=== PATIENT | female | born 1950 | race American Indian/Alaskan Native ===

== ENCOUNTER → 2018-05-26 | Outpatient (CLI) | payer MEDICARE, BC | END | disposition home or self-care (01) | LOC: C.CTH 12:23 | DX: I73.9 Peripheral vascular disease, unspecified (principal) ==

== ENCOUNTER 2018-06-18 16:07 | Inpatient (IN) | payer MEDICARE, BC ==
--- NOTE | 2018-06-18 16:25 | C.PDOC ---
History Of Present Illness 67yo F with PMH of DM, ESRD on HD on MWF was sent in by Dr. Akin Shafre from office for clinical osteomyelitis. The ulcer opened and started oozing over the last week. She has been taking medication but is unsure of the name. She has noticed the inside of her leg getting warm. She is still able to bear weight and walk normally. Denies chest pain, shortness of breath, abdominal pain, numbness, tingling, dizziness, fever, chills. <Jennifer Delgadillo - Last Filed: 06/18/18 18:59> History Per: Patient Onset/Duration Of Symptoms: Days Additional History Per: Family <Jennifer Delgadillo - Last Filed: 06/18/18 18:59> <Edin Bedoya - Last Filed: 06/19/18 00:55> Time Seen by Provider: 06/18/18 16:25 Chief Complaint (Nursing): Lower Extremity Problem/Injury Past Medical History Reviewed: Historical Data, Nursing Documentation, Vital Signs Vital Signs: Last Vital Signs Temp 98.9 F 06/18/18 16:16 Pulse 85 06/18/18 16:16 Resp 18 06/18/18 16:16 BP 161/79 H 06/18/18 16:16 Pulse Ox 97 06/18/18 16:25 - [facility] Procedures ANEURYSM REPAIR NEC (01/16/14) HEMODIALYSIS (01/16/14) PACKED CELL TRANSFUSION (01/16/14) VASC PROC REVISION NEC (01/16/14) VENOUS CATHETERIZATION FOR RENAL DIALYSIS (01/16/14) <Jennifer Delgadillo - Last Filed: 06/18/18 18:59> Vital Signs: Last Vital Signs Temp 98.9 F 06/18/18 16:16 Pulse 85 06/18/18 16:16 Resp 18 06/18/18 16:16 BP 161/79 H 06/18/18 16:16 Pulse Ox 97 06/18/18 16:16 Primary Care Provider: Fiona Brand - Medical History PMH: Anemia, Diabetes, HTN, Peripheral Edema, End Stage Renal Disease, Chronic Kidney Disease Surgical History: Endoscopy - [facility] Procedures ANEURYSM REPAIR NEC (01/16/14) HEMODIALYSIS (01/16/14) PACKED CELL TRANSFUSION (01/16/14) VASC PROC REVISION NEC (01/16/14) VENOUS CATHETERIZATION FOR RENAL DIALYSIS (01/16/14) Family History: States: Unknown Family Hx - Social History Hx Tobacco Use: No Hx Alcohol Use: No Hx Substance Use: No - Immunization History Hx Influenza Vaccination: (unsure) Hx Pneumococcal Vaccination: (unsure) <Edin Bedoya - Last Filed: 06/19/18 00:55> Review Of Systems Constitutional: Negative for: Fever, Chills Eyes: Negative for: Pain, Vision Change Cardiovascular: Negative for: Chest Pain, Palpitations Respiratory: Negative for: Cough, Shortness of Breath, Wheezing Gastrointestinal: Negative for: Nausea, Vomiting, Abdominal Pain, Diarrhea, Constipation Genitourinary: Positive for: Frequency (no longer urinates) Musculoskeletal: Positive for: Foot Pain Neurological: Negative for: Weakness, Numbness, Confusion, Dizziness <Jennifer Delgadillo - Last Filed: 06/18/18 18:59> Physical Exam - Physical Exam Appears: Well, No Acute Distress Skin: No Normal Color (erythema), Warm (warm to touch on medial aspect of left leg), Dry, Other Head: Atraumatic, Normacephalic Eye(s): bilateral: PERRL, EOMI Cardiovascular: Rhythm Regular, No Murmur Respiratory: Normal Breath Sounds, No Accessory Muscle Use, No Rales, No Rhonchi, No Wheezing Gastrointestinal/Abdominal: Normal Exam, Bowel Sounds, Soft, No Tenderness, Distention (morbidly obese) Extremity: Normal ROM, Pedal Edema (1+ pitting edema on affected side), Capillary Refill (<2 sec), Swelling (on affected side, ascending to mid-leg), Other (deep ulcer in superior aspect of 2nd toe with fat and bone grossly obvious, no discharge. R UE AVF intact, palpable thrill and audible bruit) Pulses: Left Radial: Normal, Right Radial: Normal, Left Dorsalis Pedis: Normal, Right Dorsalis Pedis: Absent, Normal DTR: Bicep (R): 2+, Bicep (L): 2+, Tricep (R): 2+, Tricep (L): 2+, Knee (R): 2+, Knee (L): 2+ Neurological/Psych: Oriented x3, Normal Speech, Normal Cognition, Normal Cranial Nerves, Normal Motor, Normal Sensation <Jennifer Delgadillo - Last Filed: 06/18/18 18:59> - Physical Exam Neck: Normal, Normal ROM, No Midline Cervical Tenderness, Supple, Other (no meningeal signs) Back: Normal Inspection, No CVA Tenderness, No Vertebral Tenderness Pulses: Left Dorsalis Pedis: Normal, Right Dorsalis Pedis: Normal (L and R dorsalis pedis present) <Edin Bedoya - Last Filed: 06/19/18 00:55> ED Course And Treatment - Laboratory Results Result Diagrams: 06/18/18 18:06 06/18/18 18:06 <Jennifer Delgadillo - Last Filed: 06/18/18 18:59> - Laboratory Results Result Diagrams: 06/18/18 18:06 06/18/18 18:06 O2 Sat by Pulse Oximetry: 97 <Edin Bedoya - Last Filed: 06/19/18 00:55> Medical Decision Making Medical Decision Making: - CBC, CMP - Blood Cx x2 drawn - Vanc/Zosyn x1 started - Podiatry Akin Shafer consulted. Spoke to Pod resident - XR L 2nd toe - XR 3 view L foot - per Dr. Akin Shafer, Vascular Sx Dr. Salguero consulted - per Dr. Akin Shafer, Nephro Dr. Trejo consulted - per Dr. Akin Shafer, ID Dr. Gilliland consulted - per Dr. Akin Shafer, will admit under Dr. Brand 1812 spoke to Podiatry resident. will contact Dr. Brand for admission. Message left, will try again. [address] Brand and accepts admission. Started on Renal dialysis diet, Accuchecks ACHS, Medium Novolog ISS. Restarted home meds with BP holding parameters. <Jennifer Delgadillo - Last Filed: 06/18/18 18:59> Disposition - Disposition Disposition Time: 17:26 <Jennifer Delgadillo - Last Filed: 06/18/18 18:59> <ElkeEdin - Last Filed: 06/19/18 00:55> - Disposition Disposition: HOSPITALIZED Condition: GOOD - Clinical Impression Clinical Impression: Osteomyelitis of second toe of left foot - PA / ECONOMETRICS PROFESSOR / Resident Statement / has reviewed & agrees with the documentation as recorded. / has examined the patient and agrees with the treatment plan. <Jennifer Delgadillo - Last Filed: 06/18/18 18:59> - PA / ECONOMETRICS PROFESSOR / Resident Statement MD/DO has examined the patient and agrees with the treatment plan. (67 yr old F w/ hx of HD MWF p/w foot infection sent in for admission, abx and furhter evaluation. No signs of crepitus on exam. Good bruit and thrill to RUE fistula. Good N/V status on B/l LE exam. Likely foot infection. Admitted and abx started, seen by podiatry resident bedside. Pt in NAD, agreeable to plan) <Edin Bedoya - Last Filed: 06/19/18 00:55>
[2018-06-18] MEDS ORDERED: Vancomycin 1 gm/NS 200 ml 1 GM/200 ML BAG IVPB STA (17:00)
[2018-06-18] MEDS ORDERED: Piperacillin/Tazobact 3.375 GM in Sodium Chloride 100 ML IVPB ONE (17:00)
[2018-06-18] MEDS ORDERED: Piperacillin/Tazobact 3.375 gm 100 ML IVPB ONE (18:04)
--- NOTE | 2018-06-18 18:05 | CP.PCM.CON ---
History of Present Illness - History of Present Illness History of Present Illness: Podiatry Consult Note - Dr. Bird Shafer 67 y/o female with PMHx of diabetes, CKD on ESRD (MWF), chronic back pain seen at bedside after consultation for left foot 2nd digit ulceration with clinical osteomyelitis. She states she saw Dr. Shafer in his office who sent her here. States she formerly had a scab on the toe and thinks her shoe rubbed against it too hard, causing it to break the skin open. Denies a history of lower extremity ulcerations. States at present the toe is painful and the overall foot feels swollen and tender. States she does occasionally experience tingling sensations in the feet. Denies burning. Denies F/C/N/V/CP/SOB. PSH: AV fistula, left AV shunt, cataract surgery All: NKDA SocHx: denies EtOH, cigarette or illicit drug use Review of Systems - Review of Systems All systems: reviewed and no additional remarkable complaints except (per HPI) Past Patient History - Past Medical History & Family History Past Medical History?: Yes - Past Social History Smoking Status: Never Smoked - CARDIAC Hx Hypertension: Yes Hx Peripheral Edema: Yes - PULMONARY Hx Respiratory Disorders: No - NEUROLOGICAL Hx Neurological Disorder: No - HEENT Hx HEENT Problems: Yes Hx Cataracts: Yes - RENAL Hx Chronic Kidney Disease: Yes - ENDOCRINE/METABOLIC Hx Endocrine Disorders: Yes Hx Diabetes Mellitus Type 2: Yes (no longer) - HEMATOLOGICAL/ONCOLOGICAL Hx Anemia: Yes - INTEGUMENTARY Hx Dermatological Problems: No - MUSCULOSKELETAL/RHEUMATOLOGICAL Hx Musculoskeletal Disorders: No Hx Falls: No - GASTROINTESTINAL Hx Gastrointestinal Disorders: Yes (constipation) - GENITOURINARY/GYNECOLOGICAL Hx Genitourinary Disorders: No - PSYCHIATRIC Hx Substance Use: No - SURGICAL HISTORY Hx Surgeries: Yes Hx Cataract Extraction: Yes (right eye) Hx Eye Surgery: Yes (detached retina right eye) Hx Vascular Surgery: Yes (Left arm graft, and right arm fistula.) Hx Vascular Access Device: Yes (Left arm graft, and right arm fistula.) - ANESTHESIA Hx Anesthesia: Yes Hx Anesthesia Reactions: No Hx Malignant Hyperthermia: No Meds Allergies/Adverse Reactions: Allergies Allergy/AdvReac Type Severity Reaction Status Date / Time No Known Allergies Allergy Verified 01/16/14 10:58 - Medications Medications: Current Medications Vancomycin/Sodium Chloride (Vancomycin 1 Gm/Ns 200 Ml) 1 gm in 200 mls @ 133 mls/hr IVPB STAT STA; Protocol Stop: 06/18/18 18:30 Physical Exam - Constitutional Appears: Well, Non-toxic, No Acute Distress - Extremities Exam Additional comments: Lower extremity focused exam: Vasc: DP/PT pulses palpable 1/4 B/L. Temperature gradient warm to warm on left, warm to cool on R. Mild localized edema noted about the 2nd digit left foot. Pedal hair growth absent Derm: open ulceration noted to 2nd digit PIPJ of left foot approx 0.8cm x 0.6cm x 0.3cm with 80% fibrotic and 20% granular wound base. (+) probe to bone noted. No malodor, no active drainage, no purulence, no fluctuance or suspicion of abscess formation. No james-wound erythema noted at present. No other open lesions noted. Dystrophic thickened toenails to B/L hallucal toenails noted Neuro: protective sensation grossly intact Ortho: mild hammertoe contractures noted to lesser digits B/L. mild tenderness elicited to palpation of left 2nd digit at ulceration site - Neurological Exam Neurological exam: Alert, Oriented x3 - Psychiatric Exam Psychiatric exam: Normal Affect, Normal Mood Results - Vital Signs Recent Vital Signs: Last Vital Signs Temp 98.9 F 06/18/18 16:16 Pulse 85 06/18/18 16:16 Resp 18 06/18/18 16:16 BP 161/79 H 06/18/18 16:16 Pulse Ox 97 06/18/18 16:25 - Labs Result Diagrams: 06/18/18 18:06 06/18/18 18:06 Assessment & Plan - Assessment and Plan (Free Text) Assessment: 67 y/o diabetic female with left foot 2nd digit ulceration with clinical osteomyelitis, secondary to pressure Plan Patient seen and evaluated in ED Discussed plan with Dr. Bird Shafer VSS, no leukocytosis noted Left foot x-rays taken and reviewed- no acute osseous findings, no evidence of cortical erosion or periosteal reaction noted Wound site cleaned with saline, dressed with bactroban, DSD Recommend admission for IV abx ID consult placed for Dr. iGlliland, appreciate recommendations Vascular surgery Dr. Salguero on board Podiatry will continue to follow patient while in house
[2018-06-18 18:19] LABS: BASO # 0.1 K/uL (0.0-0.2); BASO % 0.9 % (0.0-2.0); EOS # 0.1 K/uL (0.0-0.7); EOS % 0.7 % (0.0-4.0); HEMOGLOBIN 10.8 g/dL (11.0-16.0); LYMPH # 1.7 K/uL (1.0-4.3); LYMPH % 19.2 % (20.0-40.0); MEAN CELL VOLUME 90.2 fL (81.0-99.0); MEAN CORPUSCULAR HEMOGLOBIN 29.7 pg (27.0-31.0); MEAN PLATELET VOLUME 6.8 fL (7.2-11.7); MONO # 0.9 K/uL (0.0-0.8); MONO % 9.4 % (0.0-10.0); NEUT # 6.3 K/uL (1.8-7.0); NEUT % 69.8 % (50.0-75.0); RBC 3.64 Mil/uL (3.80-5.20); RED CELL DISTRIBUTION WIDTH 18.9 % (11.5-14.5); WHITE BLOOD COUNT 9.1 K/uL (4.8-10.8)
[2018-06-18 18:32] LABS: ALB/GLOB RATIO 1.1 (1.0-2.1); ALBUMIN 4.1 g/dL (3.5-5.0); CALCIUM 11.2 mg/dl (8.6-10.4)
[2018-06-18] MEDS ORDERED: Vancomycin 1 GM 1 GM/250 ML BAG IVPB ONE (18:49)
--- NOTE | 2018-06-18 19:25 | CP.PCM.CON ---
History of Present Illness - History of Present Illness History of Present Illness: Vascular Surgery consult for Dr. Salguero-Cherise Mcbride, PGY-2 Pt seen/examined at bedside 67F w/PMH sig for DM & peripheral consulted for Left toe pain x 4 mos. Pt reports she somehow injured the 2nd toe of her left foot, resulting in a scab, which wore off while wearing shoes and resulted in non healing wound with recent light pink drainage x 1 week. Pt has been seeing outpatient heavy equipment operating engineer with failure of outpatient management, pt was sent in for evaluation and management of Left 2nd toe non healing wound/infection. Admits to LLE pain on medial aspect- moderate, non radiating, elicited by pressure, intermittent; also has oc casional numbness and tingling of feet b/l. Denies N & V, F & C, decreased ROM, pain in toes bilaterally, SOB, CP, changes in bowel or bladder habits (anuric), ALLRED, dizziness, sore throat, other complaints. Pt reports seeing Dr. Salguero as outpatient with CTA and Doppler studies done showing small blood vessel size. PMH: ESRD on HD (MWF), DM, peripheral edema, chronic LBP PSH: RUE AVF, LUE AV shunt (non functional), cataract surgery & Lasix surgery All:NKDA SH: Denies current or hx of ETOH, tobacco or illicit drug use FH: Non contributory PMD: Dr. Beavers Outpatient 3D Designer: Dr. Akin Shafer Review of Systems - Review of Systems All systems: reviewed and no additional remarkable complaints except - Constitutional Constitutional: Fatigue. absent: Chills, Fever, Headache - EENT Eyes: absent: Change in Vision Nose/Mouth/Throat: absent: Sore Throat - Cardiovascular Cardiovascular: absent: Chest Pain - Gastrointestinal Gastrointestinal: absent: Abdominal Pain, Nausea, Vomiting - Genitourinary Genitourinary: absent: Change in Urinary Stream - Musculoskeletal Musculoskeletal: Back Pain (chronic) - Integumentary Integumentary: Non-Healing Lesions (of Left 2nd toe) - Neurological Neurological: absent: Headaches Past Patient History - Past Medical History & Family History Past Medical History?: Yes - Past Social History Smoking Status: Never Smoked - CARDIAC Hx Hypertension: Yes Hx Peripheral Edema: Yes - PULMONARY Hx Respiratory Disorders: No - NEUROLOGICAL Hx Neurological Disorder: No - HEENT Hx HEENT Problems: Yes Hx Cataracts: Yes - RENAL Hx Chronic Kidney Disease: Yes - ENDOCRINE/METABOLIC Hx Endocrine Disorders: Yes Hx Diabetes Mellitus Type 2: Yes (no longer) - HEMATOLOGICAL/ONCOLOGICAL Hx Anemia: Yes - INTEGUMENTARY Hx Dermatological Problems: No - MUSCULOSKELETAL/RHEUMATOLOGICAL Hx Musculoskeletal Disorders: No Hx Falls: No - GASTROINTESTINAL Hx Gastrointestinal Disorders: Yes (constipation) - GENITOURINARY/GYNECOLOGICAL Hx Genitourinary Disorders: No - PSYCHIATRIC Hx Substance Use: No - SURGICAL HISTORY Hx Surgeries: Yes Hx Cataract Extraction: Yes (right eye) Hx Eye Surgery: Yes (detached retina right eye) Hx Vascular Surgery: Yes (Left arm graft, and right arm fistula.) Hx Vascular Access Device: Yes (Left arm graft, and right arm fistula.) - ANESTHESIA Hx Anesthesia: Yes Hx Anesthesia Reactions: No Hx Malignant Hyperthermia: No Meds Allergies/Adverse Reactions: Allergies Allergy/AdvReac Type Severity Reaction Status Date / Time No Known Allergies Allergy Verified 01/16/14 10:58 - Medications Medications: Current Medications Amlodipine Besylate (Norvasc) 10 mg PO DAILY MANUEL Apixaban (Eliquis) 2.5 mg PO BID MANUEL Cinacalcet (Sensipar) 30 mg PO DAILY MANUEL Clonidine HCl (Catapres) 0.2 mg PO BID MANUEL Hydralazine HCl (Apresoline) 25 mg PO Q8 MANUEL Insulin Aspart (Novolog) 0 unit SC ACHS [facility]; Protocol Sevelamer Carbonate (Renvela) 2.4 gm PO TIDCC [facility] Physical Exam - Constitutional Appears: Non-toxic, No Acute Distress - Head Exam Head Exam: ATRAUMATIC, NORMAL INSPECTION, NORMOCEPHALIC - Eye Exam Eye Exam: EOMI, Normal appearance - ENT Exam ENT Exam: Mucous Membranes Moist, Normal Exam - Neck Exam Neck exam: Positive for: Normal Inspection - Respiratory Exam Respiratory Exam: Clear to Auscultation Bilateral, NORMAL BREATHING PATTERN. absent: Respiratory Distress - Cardiovascular Exam Cardiovascular Exam: REGULAR RHYTHM, +S1, +S2 - GI/Abdominal Exam GI & Abdominal Exam: Soft. absent: Distended (obese), Tenderness - Extremities Exam Additional comments: Left foot with dressing in place- clean/dry/intact. decreased sensation over 2nd toe, full ROM, non palpable PT & DP, palpable AT. Toenails distorted and thickened. 2nd toe on left foot with darkened discoloration - Neurological Exam Neurological exam: Alert - Psychiatric Exam Psychiatric exam: Normal Affect, Normal Mood - Skin Additional comments: See extremity exam for skin findings Results - Vital Signs Recent Vital Signs: Last Vital Signs Temp 98.4 F 06/18/18 19:15 Pulse 86 06/18/18 19:15 Resp 18 06/18/18 19:15 BP 127/58 L 06/18/18 19:15 Pulse Ox 99 06/18/18 19:15 - Labs Result Diagrams: 06/18/18 18:06 06/18/18 18:06 Labs: Laboratory Results - last 24 hr 06/18/18 06/18/18 18:06 18:06 WBC 9.1 RBC 3.64 L Hgb 10.8 L Hct 32.8 L MCV 90.2 MCH 29.7 MCHC 33.0 RDW 18.9 H Plt Count 266 D MPV 6.8 L Neut % (Auto) 69.8 Lymph % (Auto) 19.2 L Carbon % (Auto) 9.4 Eos % (Auto) 0.7 Baso % (Auto) 0.9 Neut # (Auto) 6.3 Lymph # (Auto) 1.7 Carbon # (Auto) 0.9 H Eos # (Auto) 0.1 Baso # (Auto) 0.1 Sodium 139 Potassium 4.3 Chloride 91 L Carbon Dioxide 30 Anion Gap 23 H BUN 24 H Creatinine 7.3 H Est GFR ( Amer) 7 Est GFR (Non-Af Amer) 6 Random Glucose 69 D Calcium 11.2 H Total Bilirubin 0.8 AST 17 ALT 14 Alkaline Phosphatase 226 H Total Protein 7.9 Albumin 4.1 Globulin 3.8 Albumin/Globulin Ratio 1.1 Assessment & Plan - Assessment and Plan (Free Text) Assessment: 67F w/non healing wound of left 2nd toe Plan: Pt completed outpatient vascular work up No acute vascular surgery intervention at this time FU podiatry recommendations Pain control Antibiotics Will follow peripherally DW Dr. Jose M Mcbride, PGY-2 - Date & Time Date: 06/18/18 Time: 19:28
--- NOTE | 2018-06-18 21:27 | CP.PCM.HP ---
History of Present Illness - History of Present Illness History of Present Illness: cc; infected foot ulcer HpI; 67 female with hemodylisis dependent renal failure with Left toe pain x 4 mos. Pt reports she believes but does not recall how she injured the 2nd toe of her left foot, resulting in a scab, which wore off while wearing shoes and resulted in non healing wound with recent light pink drainage x 1 week. Pt has been seeing outpatient yard motor operator with failure of outpatient management. PT reports LLE pain on medial aspect- moderate, non radiating, elicited by pressure, intermittent; also has occasional numbness and tingling of feet b/l. Denies N & V, F & C, decreased ROM, pain in toes bilaterally. Pt reports seeing Dr. Salguero as outpatient with CTA and Doppler studies done showing small blood vessel size. PMH: ESRD on HD (MWF), DM, peripheral edema, chronic LBP PSH: RUE AVF, LUE AV shunt (non functional), cataract surgery & Lasix surgery All:NKDA SH: Denies current or hx of ETOH, tobacco or illicit drug use FH: Non contributory Outpatient Delivery Specialist: Dr. Akin Shafer PMHx: DM Hnt renal failure on HD Social; no tob no ethoh Review of Systems - Constitutional Constitutional: absent: Anorexia, Chills - Cardiovascular Cardiovascular: absent: Chest Pain, Chest Pain with Activity, Claudication - Respiratory Respiratory: absent: Hemoptysis, Wheezing - Gastrointestinal Gastrointestinal: absent: Abdominal Pain, Diarrhea - Musculoskeletal Musculoskeletal: Other (left foot toe pain) Past Patient History - Past Medical History & Family History Past Medical History?: Yes - Past Social History Smoking Status: Never Smoked - CARDIAC Hx Hypertension: Yes Hx Peripheral Edema: Yes - PULMONARY Hx Respiratory Disorders: No - NEUROLOGICAL Hx Neurological Disorder: No - HEENT Hx HEENT Problems: Yes Hx Cataracts: Yes - RENAL Hx Chronic Kidney Disease: Yes Date of Last Dialysis Treatment: 06/17/18 - ENDOCRINE/METABOLIC Hx Endocrine Disorders: Yes Hx Diabetes Mellitus Type 2: Yes (patient denies still have DM II) - HEMATOLOGICAL/ONCOLOGICAL Hx Anemia: Yes - INTEGUMENTARY Hx Dermatological Problems: No - MUSCULOSKELETAL/RHEUMATOLOGICAL Hx Musculoskeletal Disorders: No Hx Falls: No - GASTROINTESTINAL Hx Gastrointestinal Disorders: Yes (constipation) - GENITOURINARY/GYNECOLOGICAL Hx Genitourinary Disorders: No - PSYCHIATRIC Hx Substance Use: No - SURGICAL HISTORY Hx Surgeries: Yes Hx Cataract Extraction: Yes (right eye) Hx Eye Surgery: Yes (detached retina right eye) Hx Vascular Surgery: Yes (Left arm graft, and right arm fistula.) Hx Vascular Access Device: Yes (Left arm graft, and right arm fistula.) - ANESTHESIA Hx Anesthesia: Yes Hx Anesthesia Reactions: No Hx Malignant Hyperthermia: No Meds Allergies/Adverse Reactions: Allergies Allergy/AdvReac Type Severity Reaction Status Date / Time No Known Allergies Allergy Verified 01/16/14 10:58 Physical Exam - Constitutional Appears: Non-toxic - Eye Exam Eye Exam: Normal appearance - ENT Exam ENT Exam: Mucous Membranes Moist - Respiratory Exam Respiratory Exam: Clear to Auscultation Bilateral, NORMAL BREATHING PATTERN. absent: Chest Wall Tenderness, Rales - Cardiovascular Exam Cardiovascular Exam: REGULAR RHYTHM, RRR, +S1, +S2. absent: JVD - GI/Abdominal Exam GI & Abdominal Exam: Normal Bowel Sounds, Soft. absent: Hyperactive Bowel Sounds, Tenderness (left toes ) Results - Vital Signs Recent Vital Signs: Last Vital Signs Temp 99.0 F 06/18/18 20:15 Pulse 87 06/18/18 20:15 Resp 18 06/18/18 20:15 BP 153/74 H 06/18/18 20:15 Pulse Ox 100 06/18/18 20:15 - Labs Result Diagrams: 06/18/18 18:06 06/18/18 18:06 Labs: Laboratory Results - last 24 hr 06/18/18 06/18/18 18:06 18:06 WBC 9.1 RBC 3.64 L Hgb 10.8 L Hct 32.8 L MCV 90.2 MCH 29.7 MCHC 33.0 RDW 18.9 H Plt Count 266 D MPV 6.8 L Neut % (Auto) 69.8 Lymph % (Auto) 19.2 L Parker % (Auto) 9.4 Eos % (Auto) 0.7 Baso % (Auto) 0.9 Neut # (Auto) 6.3 Lymph # (Auto) 1.7 Parker # (Auto) 0.9 H Eos # (Auto) 0.1 Baso # (Auto) 0.1 Sodium 139 Potassium 4.3 Chloride 91 L Carbon Dioxide 30 Anion Gap 23 H BUN 24 H Creatinine 7.3 H Est GFR ( Amer) 7 Est GFR (Non-Af Amer) 6 Random Glucose 69 D Calcium 11.2 H Total Bilirubin 0.8 AST 17 ALT 14 Alkaline Phosphatase 226 H Total Protein 7.9 Albumin 4.1 Globulin 3.8 Albumin/Globulin Ratio 1.1 Assessment & Plan - Assessment and Plan (Free Text) Assessment: Toe infection PVD DM HD HTN ID and vascular consulted iv abx
--- NOTE | 2018-06-18 21:54 | RAD ---
Date of service: 06/18/2018 PROCEDURE: Left Foot Radiographs. HISTORY: clinical osteomyelitis COMPARISON: None. TECHNIQUE: 3 views obtained. FINDINGS: BONES: Cortical disruption on the plantar aspect of the distal phalanx 2nd digit. This is only seen on the lateral view. JOINTS: Normal. SOFT TISSUES: Soft tissue swelling 2nd digit. OTHER FINDINGS: None. IMPRESSION: Cortical disruption/irregularity distal phalanx left 2nd digit consistent with clinically apparent osteomyelitis.
[2018-06-18] MEDS: (Novolog) Insulin Aspart, Recombinant 100 u/ml 10 ml vial SC SCH (23:21)
[2018-06-19] MEDS: (Novolog) Insulin Aspart, Recombinant 100 u/ml 10 ml vial SC SCH ×4 (07:19→22:27)
[2018-06-19] MEDS: Sevelamer Carb 2.4 gm/Packet PO SCH ×3 (07:34→19:03)
--- NOTE | 2018-06-19 10:59 | CP.PCM.PN ---
Subjective - Date & Time of Evaluation Date of Evaluation: 06/19/18 Time of Evaluation: 10:59 - Subjective Subjective: Podiatry Progress Note - Dr. Shafer 67 year old female patient seen and evaluated at bedside for left foot 2nd digit ulcer with clinical osteomyelitis. Family/friends present at bedside. Patient resting comfortably, NAD. No acute events overnight. Patient reports pain and swelling in 2nd toe unchanged. Patient refusing surgical intervention at this time; patient agreeable to predatory animal exterminator antibiotics however refuses to be sent to a rehab facility. Denies F/C/N/V/CP/SOB. Objective - Vital Signs/Intake and Output Vital Signs (last 24 hours): Temp Pulse Resp BP Pulse Ox 98.2 F 83 20 110/62 98 06/19/18 08:48 06/19/18 08:48 06/19/18 08:48 06/19/18 08:48 06/19/18 08:48 - Medications Medications: Current Medications Amlodipine Besylate (Norvasc) 10 mg PO DAILY [facility] Last Admin: 06/19/18 09:02 Dose: 10 mg Apixaban (Eliquis) 2.5 mg PO BID [facility] Last Admin: 06/19/18 09:02 Dose: 2.5 mg Cinacalcet (Sensipar) 30 mg PO DAILY [facility] Last Admin: 06/19/18 09:07 Dose: 30 mg Clonidine HCl (Catapres) 0.2 mg PO BID [facility] Last Admin: 06/19/18 09:02 Dose: 0.2 mg Hydralazine HCl (Apresoline) 25 mg PO Q8 [facility] Last Admin: 06/19/18 06:32 Dose: Not Given Insulin Aspart (Novolog) 0 unit SC ACHS [facility]; Protocol Last Admin: 06/19/18 07:19 Dose: Not Given Mupirocin (Bactroban Ointment) 0 gm TOP DAILY [facility] Sevelamer Carbonate (Renvela) 2.4 gm PO TIDCC [facility] Last Admin: 06/19/18 07:34 Dose: 2.4 gm - Labs Labs: 06/18/18 18:06 06/18/18 18:06 - Constitutional Appears: Non-toxic, No Acute Distress - Extremities Exam Additional comments: Lower extremity focused exam: Vasc: DP/PT pulses palpable 1/4 B/L. Temperature gradient warm to warm on left, warm to cool on R. Mild localized edema noted about the 2nd digit left foot. Pedal hair growth absent Derm: open ulceration noted to 2nd digit PIPJ of left foot approx 0.8cm x 0.6cm x 0.3cm with 80% fibrotic and 20% granular wound base. (+) probe to bone noted. No malodor, no active drainage, no purulence, no fluctuance or suspicion of abscess formation. No james-wound erythema noted at present. No other open lesions noted. Dystrophic thickened toenails to B/L hallucal toenails noted Neuro: protective sensation grossly intact Ortho: mild hammertoe contractures noted to lesser digits B/L. mild tenderness elicited to palpation of left 2nd digit at ulceration site - Neurological Exam Neurological Exam: Alert, Awake, Oriented x3 - Psychiatric Exam Psychiatric exam: Normal Affect, Normal Mood Assessment and Plan - Assessment and Plan (Free Text) Assessment: 67 y/o diabetic female with left foot 2nd digit ulceration with clinical osteomyelitis, secondary to pressure Plan Patient seen and evaluated in ED alongside attending, Dr. Bird Shafer VSS Left foot x-rays taken and reviewed- no acute osseous findings, no evidence of cortical erosion or periosteal reaction noted Wound site cleaned with saline, dressed with bactroban, DSD ID consult placed for Dr. Gilliland, f/u recs for duration of antibiotic therapy Discussed with patient conservative vs. surgical options along with associated risks and complications. Patient refusing surgical intervention at this time Left foot wound culture taken Vascular recs appreciated Podiatry will continue to follow
--- NOTE | 2018-06-19 13:44 | CP.PCM.CON ---
History of Present Illness - History of Present Illness History of Present Illness: 67F w/PMH sig for DM , ESRD, severe HPT & pvd has had left toe pain x 4 mos. Pt reports she somehow injured the 3rd toe of her left foot, resulting in a scab, which wore off while wearing shoes and resulted in non healing wound with recent light pink drainage x 1 week. Pt has been seeing outpatient manager golf with failure of outpatient management, pt was sent in for evaluation and management of Left 2nd toe non healing wound/infection. Admits to LLE pain on medial aspect- moderate, non radiating, elicited by pressure, intermittent; also has occasional numbness and tingling of feet b/l. Denies N & V, F & C, decreased ROM, pain in toes bilaterally, SOB, CP, changes in bowel or bladder habits (anuric), ALLRED, dizziness, sore throat, other complaints. Pt reports seeing Dr. Salguero as outpatient with CTA and Doppler studies done showing small blood vessel size. PMH: ESRD on HD (MWF), DM 2, peripheral edema, chronic LBP, severe HPT PSH: RUE AVF, LUE AV shunt (non functional), cataract surgery & Lasix surgery All:NKDA SH: Denies current or hx of ETOH, tobacco or illicit drug use FH: Non contributory; no CKD PMD: Dr. Beavers Review of Systems - Constitutional Constitutional: Fatigue, Weakness - EENT Eyes: absent: As Per HPI, Blind Spots, Blurred Vision, Change in Vision, Decreased Night Vision, Diplopia, Discharge, Dry Eye, Exophthalmos, Floaters, Irritation, Itchy Eyes, Loss of Peripheral Vision, Pain, Photophobia, Requires Corrective Lenses, Sees Flashes, Spots in Vision, Tunnel Vision, Other Visual Disturbances, Loss of Vision, Other Ears: absent: As Per HPI, Decreased Hearing, Ear Discharge, Ear Pain, Tinnitus, Abnormal Hearing, Disequilibrium, Dizziness, Other Nose/Mouth/Throat: absent: As Per HPI, Epistaxis, Nasal Congestion, Nasal Discharge, Nasal Obstruction, Nasal Trauma, Nose Pain, Post Nasal Drip, Sinus Pain, Sinus Pressure, Bleeding Gums, Change in Voice, Dental Pain, Dry Mouth, Dysphagia, Halitosis, Hoarsness, Lip Swelling, Mouth Lesions, Mouth Pain, Odynophagia, Sore Throat, Throat Swelling, Tongue Swelling, Facial Pain, Neck Pain, Neck Mass, Other - Cardiovascular Cardiovascular: Dyspnea on Exertion - Respiratory Respiratory: absent: As Per HPI, Cough, Dyspnea, Hemoptysis, Dyspnea on Exertion, Wheezing, Snoring, Stridor, Pain on Inspiration, Chest Congestion, Excessive Mucous Production, Change in Mucous Color, Pain with Coughing, Other - Gastrointestinal Gastrointestinal: Early Satiety - Genitourinary Genitourinary: As Per HPI - Musculoskeletal Musculoskeletal: Back Pain, Muscle Weakness, Myalgias - Integumentary Integumentary: Erythema, Lesions - Neurological Neurological: Weakness Past Patient History - Past Medical History & Family History Past Medical History?: Yes Past Family History: Reviewed and not pertinent - Past Social History Smoking Status: Never Smoked Chewing Tobacco Use: No Cigar Use: No Alcohol: None Drugs: Denies Home Situation {Lives}: With Family - CARDIAC Hx Hypertension: Yes Hx Peripheral Edema: Yes - PULMONARY Hx Respiratory Disorders: No - NEUROLOGICAL Hx Neurological Disorder: No - HEENT Hx HEENT Problems: Yes Hx Cataracts: Yes - RENAL Hx Chronic Kidney Disease: Yes - ENDOCRINE/METABOLIC Hx Endocrine Disorders: Yes Hx Diabetes Mellitus Type 2: Yes (patient denies still have DM II) - HEMATOLOGICAL/ONCOLOGICAL Hx Anemia: Yes - INTEGUMENTARY Hx Dermatological Problems: No - MUSCULOSKELETAL/RHEUMATOLOGICAL Hx Musculoskeletal Disorders: No Hx Falls: No - GASTROINTESTINAL Hx Gastrointestinal Disorders: Yes (constipation) - GENITOURINARY/GYNECOLOGICAL Hx Genitourinary Disorders: No - PSYCHIATRIC Hx Substance Use: No - SURGICAL HISTORY Hx Surgeries: Yes Hx Cataract Extraction: Yes (right eye) Hx Eye Surgery: Yes (detached retina right eye) Hx Vascular Surgery: Yes (Left arm graft, and right arm fistula.) Hx Vascular Access Device: Yes (Left arm graft, and right arm fistula.) - ANESTHESIA Hx Anesthesia: Yes Hx Anesthesia Reactions: No Hx Malignant Hyperthermia: No Meds Allergies/Adverse Reactions: Allergies Allergy/AdvReac Type Severity Reaction Status Date / Time No Known Allergies Allergy Verified 01/16/14 10:58 - Medications Medications: Current Medications Amlodipine Besylate (Norvasc) 10 mg PO DAILY [facility] Last Admin: 06/19/18 09:02 Dose: 10 mg Apixaban (Eliquis) 2.5 mg PO BID [facility] Last Admin: 06/19/18 09:02 Dose: 2.5 mg Cinacalcet (Sensipar) 30 mg PO DAILY [facility] Last Admin: 06/19/18 09:07 Dose: 30 mg Clonidine HCl (Catapres) 0.2 mg PO BID [facility] Last Admin: 06/19/18 09:02 Dose: 0.2 mg Hydralazine HCl (Apresoline) 25 mg PO Q8 [facility] Last Admin: 06/19/18 13:21 Dose: 25 mg Insulin Aspart (Novolog) 0 unit SC ACHS [facility]; Protocol Last Admin: 06/19/18 12:23 Dose: 2 units Mupirocin (Bactroban Ointment) 0 gm TOP DAILY [facility] Last Admin: 06/19/18 11:12 Dose: 1 applic Sevelamer Carbonate (Renvela) 2.4 gm PO TIDCC [facility] Last Admin: 06/19/18 12:16 Dose: 2.4 gm Physical Exam - Constitutional Appears: No Acute Distress, Chronically Ill - Head Exam Head Exam: ATRAUMATIC, NORMAL INSPECTION - Eye Exam Eye Exam: EOMI, Normal appearance - Neck Exam Neck exam: Positive for: Normal Inspection. Negative for: Tenderness - Respiratory Exam Respiratory Exam: Clear to Auscultation Bilateral, NORMAL BREATHING PATTERN - Cardiovascular Exam Cardiovascular Exam: REGULAR RHYTHM, +S1 - GI/Abdominal Exam GI & Abdominal Exam: Soft. absent: Tenderness - Extremities Exam Extremities exam: Positive for: normal inspection. Negative for: tenderness - Neurological Exam Neurological exam: Alert, CN II-XII Intact - Skin Skin Exam: Dry, Warm Results - Vital Signs Recent Vital Signs: Last Vital Signs Temp 98.2 F 06/19/18 08:48 Pulse 83 06/19/18 08:48 Resp 20 06/19/18 08:48 BP 110/62 06/19/18 08:48 Pulse Ox 98 06/19/18 08:48 - Labs Result Diagrams: 06/18/18 18:06 06/18/18 18:06 Labs: Laboratory Results - last 24 hr 06/18/18 06/18/18 06/19/18 18:06 18:06 06:27 WBC 9.1 RBC 3.64 L Hgb 10.8 L Hct 32.8 L MCV 90.2 MCH 29.7 MCHC 33.0 RDW 18.9 H Plt Count 266 D MPV 6.8 L Neut % (Auto) 69.8 Lymph % (Auto) 19.2 L [place] % (Auto) 9.4 Eos % (Auto) 0.7 Baso % (Auto) 0.9 Neut # (Auto) 6.3 Lymph # (Auto) 1.7 [place] # (Auto) 0.9 H Eos # (Auto) 0.1 Baso # (Auto) 0.1 Sodium 139 Potassium 4.3 Chloride 91 L Carbon Dioxide 30 Anion Gap 23 H BUN 24 H Creatinine 7.3 H Est GFR ( Amer) 7 Est GFR (Non-Af Amer) 6 POC Glucose (mg/dL) 108 Random Glucose 69 D Calcium 11.2 H Total Bilirubin 0.8 AST 17 ALT 14 Alkaline Phosphatase 226 H Total Protein 7.9 Albumin 4.1 Globulin 3.8 Albumin/Globulin Ratio 1.1 06/19/18 11:21 WBC RBC Hgb Hct MCV MCH MCHC RDW Plt Count MPV Neut % (Auto) Lymph % (Auto) [place] % (Auto) Eos % (Auto) Baso % (Auto) Neut # (Auto) Lymph # (Auto) [place] # (Auto) Eos # (Auto) Baso # (Auto) Sodium Potassium Chloride Carbon Dioxide Anion Gap BUN Creatinine Est GFR ( Amer) Est GFR (Non-Af Amer) POC Glucose (mg/dL) 164 H Random Glucose Calcium Total Bilirubin AST ALT Alkaline Phosphatase Total Protein Albumin Globulin Albumin/Globulin Ratio Assessment & Plan (1) ESRD (end stage renal disease) Status: Acute (2) Type 2 diabetes mellitus with diabetic nephropathy Status: Acute (3) Secondary hyperparathyroidism Status: Acute (4) Osteomyelitis of second toe of left foot Status: Acute - Assessment and Plan (Free Text) Plan: wound care IV ABs surgical follow up increase sensipar dose- follow PTH
--- NOTE | 2018-06-19 18:09 | CP.PCM.CON ---
History of Present Illness - History of Present Illness History of Present Illness: 67F with complex medical Hx includin T2DM PVD and ESRD on HD is admitted with clinical OM left 2nd digit which stareted as a scab on the dorsum of the toe from [facility] approx 4 mos ago Did not respond to out pt rx and has now developed milagros drainage with pain She does not want to have an amputation She was seen by Dr Salguero as out pt PMH: ESRD on HD (MWF), DM, peripheral edema, chronic LBP PSH: RUE AVF, LUE AV shunt (non functional), cataract surgery & Lasix surgery All:NKDA SH: Denies current or hx of ETOH, tobacco or illicit drug use FH: Non contributory Review of Systems - Constitutional Constitutional: As Per HPI. absent: Chills, Fever - EENT Eyes: absent: As Per HPI, Blind Spots, Blurred Vision, Change in Vision, Decreased Night Vision, Diplopia, Discharge, Dry Eye, Exophthalmos, Floaters, Irritation, Itchy Eyes, Loss of Peripheral Vision, Pain, Photophobia, Requires Corrective Lenses, Sees Flashes, Spots in Vision, Tunnel Vision, Other Visual Disturbances, Loss of Vision, Other Ears: absent: As Per HPI, Decreased Hearing, Ear Discharge, Ear Pain, Tinnitus, Abnormal Hearing, Disequilibrium, Dizziness, Other Nose/Mouth/Throat: absent: As Per HPI, Epistaxis, Nasal Congestion, Nasal Discharge, Nasal Obstruction, Nasal Trauma, Nose Pain, Post Nasal Drip, Sinus Pain, Sinus Pressure, Bleeding Gums, Change in Voice, Dental Pain, Dry Mouth, Dysphagia, Halitosis, Hoarsness, Lip Swelling, Mouth Lesions, Mouth Pain, Odynophagia, Sore Throat, Throat Swelling, Tongue Swelling, Facial Pain, Neck Pain, Neck Mass, Other - Breasts Breasts: absent: As Per HPI, Change in Shape, Mass, Pain, Nipple Discharge, Nipple Inversion, Skin Changes, Swelling, Other - Cardiovascular Cardiovascular: As Per HPI - Respiratory Respiratory: absent: As Per HPI, Cough, Dyspnea, Hemoptysis, Dyspnea on Exertion, Wheezing, Snoring, Stridor, Pain on Inspiration, Chest Congestion, Excessive Mucous Production, Change in Mucous Color, Pain with Coughing, Other - Gastrointestinal Gastrointestinal: absent: As Per HPI, Abdominal Pain, Belching, Bloating, Change in Bowel Habits, Change in Stool Character, Coffee Ground Emesis, Constipation, Cramping, Diarrhea, Dyspepsia, Dysphagia, Early Satiety, Excessive Flatus, Fecal Incontinence, Heartburn, Hematemesis, Hematochezia, Loose Stools, Melena, [place], Odynophagia, Temesmus, Vomiting, Other - Genitourinary Genitourinary: absent: As Per HPI, Change in Urinary Stream, Difficulty Urinating, Dysuria, Flank Pain, Hematuria, Pyuria, Nocturia, Urinary Incontinence, Urinary Frequency, Urinary Hesitance, Urinary Urgency, Voiding Freq/Small Amts, Freq UTI, Hx Renal/Bladder Calculi, Hx /Renal Surgery, Bladder Distension, Other - Reproductive: Female Reproductive:Female: absent: As Per HPI, Amenorrhea, Amenorrhea/ Control, Currently Menstual, Cycle <21 Days, Cycle >35 Days, Cycle Variable, Menses 1-7 Days, Menses >/= 8 Days, Menses Variable, Cycle > 4 Weeks Between, No Menses for 6 Months, Heavy Menses, Light Menses, Normal Menses, Spotting Between Cycles, S/P Hysterectomy, Menopausal, Post Menopausal, Premenarche, Abnormal Vaginal Bleeding, Dysmenorrhea, Dyspareunia, Genital Lesions, Genital Pruritis, Pelvic Pain, Prolapse Symptoms, Sexual Dysfunction, Vaginal Discharge, Vaginal Dryness, Vaginal Odor, Vaginal Pruritis, Other - Menstruation Menstruation: absent: As Per HPI, Amenorrhea, Amenorrhea/ Control, Cur rently Menstual, Cycle <21 Days, Cycle >35 Days, Cycle Variable, Menses 1-7 Days, Menses >/= 8 Days, Menses Variable, Cycle > 4 Weeks Between, No Menses for 6 Months, Heavy Menses, Light Menses, Normal Menses, Spotting Between Cycles, S/P Hysterectomy, Menopausal, Post Menopausal, Premenarche, Abnormal Vaginal Bleeding, Dysmenorrhea, Other - Musculoskeletal Musculoskeletal: As Per HPI - Integumentary Integumentary: As Per HPI, Skin Pain, Wounds - Neurological Neurological: As Per HPI, Sensory Deficit - Psychiatric Psychiatric: absent: As Per HPI, Abnormal Sleep Pattern, Anhedonia, Anxiety, Auditory Hallucinations, Behavioral Changes, Change in Appetite, Change in Libido, Confusion, Depression, Difficulty Concentrating, Hallucinations, Homicidal Ideation, Hopelessness, Irritability, Memory Loss, Mood Swings, Panic Attacks, Paranoia, Suicidal Ideation, Visual Hallucinations, Tactile Hallucinations, Other - Endocrine Endocrine: As Per HPI - Hematologic/Lymphatic Hematologic: As Per HPI Past Patient History - Past Medical History & Family History Past Medical History?: Yes Past Family History: Reviewed and not pertinent - Past Social History Smoking Status: Never Smoked Chewing Tobacco Use: No Cigar Use: No Alcohol: None Drugs: Denies Home Situation {Lives}: With Family - CARDIAC Hx Hypertension: Yes - PULMONARY Hx Respiratory Disorders: No - NEUROLOGICAL Hx Neurological Disorder: No - HEENT Hx HEENT Problems: Yes Hx Cataracts: Yes - RENAL Hx Chronic Kidney Disease: Yes - ENDOCRINE/METABOLIC Hx Diabetes Mellitus Type 2: Yes (patient denies still have DM II) - HEMATOLOGICAL/ONCOLOGICAL Hx Anemia: Yes - INTEGUMENTARY Hx Dermatological Problems: No - MUSCULOSKELETAL/RHEUMATOLOGICAL Hx Musculoskeletal Disorders: No Hx Falls: No - GASTROINTESTINAL Hx Gastrointestinal Disorders: Yes (constipation) - GENITOURINARY/GYNECOLOGICAL Hx Genitourinary Disorders: No - PSYCHIATRIC Hx Substance Use: No - SURGICAL HISTORY Hx Surgeries: Yes Hx Cataract Extraction: Yes (right eye) Hx Eye Surgery: Yes (detached retina right eye) Hx Vascular Surgery: Yes (Left arm graft, and right arm fistula.) Hx Vascular Access Device: Yes (Left arm graft, and right arm fistula.) - ANESTHESIA Hx Anesthesia: Yes Hx Anesthesia Reactions: No Hx Malignant Hyperthermia: No Meds Allergies/Adverse Reactions: Allergies Allergy/AdvReac Type Severity Reaction Status Date / Time No Known Allergies Allergy Verified 01/16/14 10:58 - Medications Medications: Current Medications Amlodipine Besylate (Norvasc) 10 mg PO DAILY [facility] Last Admin: 06/19/18 09:02 Dose: 10 mg Apixaban (Eliquis) 2.5 mg PO BID [facility] Last Admin: 06/19/18 09:02 Dose: 2.5 mg Cinacalcet (Sensipar) 60 mg PO BID [facility] Clonidine HCl (Catapres) 0.2 mg PO BID [facility] Last Admin: 06/19/18 09:02 Dose: 0.2 mg Hydralazine HCl (Apresoline) 25 mg PO Q8 [facility] Last Admin: 06/19/18 13:21 Dose: 25 mg Insulin Aspart (Novolog) 0 unit SC [facility]; Protocol Last Admin: 06/19/18 12:23 Dose: 2 units Mupirocin (Bactroban Ointment) 0 gm TOP DAILY [facility] Last Admin: 06/19/18 11:12 Dose: 1 applic Sevelamer Carbonate (Renvela) 2.4 gm PO TIDCC [facility] Last Admin: 06/19/18 12:16 Dose: 2.4 gm Physical Exam - Constitutional Appears: Non-toxic, No Acute Distress, Chronically Ill - Head Exam Head Exam: ATRAUMATIC, NORMAL INSPECTION, NORMOCEPHALIC - Eye Exam Eye Exam: EOMI, Normal appearance, PERRL Pupil Exam: NORMAL ACCOMODATION, PERRL - ENT Exam ENT Exam: Mucous Membranes Moist, Normal Exam - Neck Exam Neck exam: Positive for: Normal Inspection - Respiratory Exam Respiratory Exam: Clear to Auscultation Bilateral, NORMAL BREATHING PATTERN - Cardiovascular Exam Cardiovascular Exam: REGULAR RHYTHM - GI/Abdominal Exam GI & Abdominal Exam: Normal Bowel Sounds, Soft. absent: Tenderness - Rectal Exam Rectal Exam: Deferred - Extremities Exam Extremities exam: Positive for: normal inspection - Back Exam Back exam: NORMAL INSPECTION - Neurological Exam Neurological exam: Alert, CN II-XII Intact, Oriented x3, Reflexes Normal - Psychiatric Exam Psychiatric exam: Normal Affect, Normal Mood - Skin Skin Exam: Dry, Erythema Additional comments: left second toe with ulcer and dark discoloration on dorsum toe is tender warm with exudate and probes to bone Results - Vital Signs Recent Vital Signs: Last Vital Signs Temp 97.8 F 06/19/18 14:50 Pulse 71 06/19/18 15:23 Resp 18 06/19/18 15:23 BP 186/106 H 06/19/18 17:19 Pulse Ox 97 06/19/18 14:50 - Labs Result Diagrams: 06/18/18 18:06 06/18/18 18:06 Labs: Laboratory Results - last 24 hr 06/18/18 06/18/18 06/19/18 18:06 18:06 06:27 WBC 9.1 RBC 3.64 L Hgb 10.8 L Hct 32.8 L MCV 90.2 MCH 29.7 MCHC 33.0 RDW 18.9 H Plt Count 266 D MPV 6.8 L Neut % (Auto) 69.8 Lymph % (Auto) 19.2 L [place] % (Auto) 9.4 Eos % (Auto) 0.7 Baso % (Auto) 0.9 Neut # (Auto) 6.3 Lymph # (Auto) 1.7 [place] # (Auto) 0.9 H Eos # (Auto) 0.1 Baso # (Auto) 0.1 Sodium 139 Potassium 4.3 Chloride 91 L Carbon Dioxide 30 Anion Gap 23 H BUN 24 H Creatinine 7.3 H Est GFR ( Amer) 7 Est GFR (Non-Af Amer) 6 POC Glucose (mg/dL) 108 Random Glucose 69 D Calcium 11.2 H Total Bilirubin 0.8 AST 17 ALT 14 Alkaline Phosphatase 226 H Total Protein 7.9 Albumin 4.1 Globulin 3.8 Albumin/Globulin Ratio 1.1 06/19/18 06/19/18 11:21 16:56 WBC RBC Hgb Hct MCV MCH MCHC RDW Plt Count MPV Neut % (Auto) Lymph % (Auto) [place] % (Auto) Eos % (Auto) Baso % (Auto) Neut # (Auto) Lymph # (Auto) [place] # (Auto) Eos # (Auto) Baso # (Auto) Sodium Potassium Chloride Carbon Dioxide Anion Gap BUN Creatinine Est GFR ( Amer) Est GFR (Non-Af Amer) POC Glucose (mg/dL) 164 H 116 H Random Glucose Calcium Total Bilirubin AST ALT Alkaline Phosphatase Total Protein Albumin Globulin Albumin/Globulin Ratio Assessment & Plan - Assessment and Plan (Free Text) Assessment: 67F with complex medical Hx includin T2DM PVD and ESRD on HD is admitted with clinical OM left 2nd digit which stareted as a [facility]ab [facility] the [facility] Did not respond to out pt rx and has now developed milagros drainage with pain She does not want to have an amputation Cultures taken unclear if toe can be salvaged empiric IV rx will be started
--- NOTE | 2018-06-19 19:24 | CP.PCM.PN ---
Subjective - Date & Time of Evaluation Date of Evaluation: 06/19/18 Time of Evaluation: 19:24 - Subjective Subjective: Pt reports feeling ok she is mostly concerned about losing her toe and states she will not agree to an amputation no chills just had dialysis Objective - Vital Signs/Intake and Output Vital Signs (last 24 hours): Temp Pulse Resp BP Pulse Ox 97.5 F L 68 18 119/39 L 98 06/19/18 18:20 06/19/18 18:20 06/19/18 18:20 06/19/18 18:20 06/19/18 18:20 Intake and Output: 06/19/18 06/20/18 18:59 06:59 Intake Total 300 Balance 300 - Medications Medications: Current Medications Amlodipine Besylate (Norvasc) 10 mg PO DAILY [facility] Last Admin: 06/19/18 09:02 Dose: 10 mg Apixaban (Eliquis) 2.5 mg PO BID [facility] Last Admin: 06/19/18 19:07 Dose: 2.5 mg Cinacalcet (Sensipar) 60 mg PO BID [facility] Last Admin: 06/19/18 19:07 Dose: 60 mg Clonidine HCl (Catapres) 0.2 mg PO BID [facility] Last Admin: 06/19/18 19:07 Dose: Not Given Hydralazine HCl (Apresoline) 25 mg PO Q8 [facility] Last Admin: 06/19/18 13:21 Dose: 25 mg Piperacillin Sod/Tazobactam Sod (Zosyn 2.25 Gm Iv Premix) 2.25 gm in 50 mls @ 100 mls/hr IVPB Q8H [facility]; Protocol Vancomycin HCl 1 gm/ Sodium (Chloride) 250 mls @ 166.7 mls/hr IVPB MWF [facility]; Protocol Insulin Aspart (Novolog) 0 unit SC ACHS [facility]; Protocol Last Admin: 06/19/18 19:14 Dose: Not Given Mupirocin (Bactroban Ointment) 0 gm TOP DAILY [facility] Last Admin: 06/19/18 11:12 Dose: 1 applic Sevelamer Carbonate (Renvela) 2.4 gm PO TIDCC [facility] Last Admin: 06/19/18 19:03 Dose: 2.4 gm - Labs Labs: 06/18/18 18:06 06/18/18 18:06 - Constitutional Appears: Well - Eye Exam Eye Exam: Normal appearance - ENT Exam ENT Exam: Mucous Membranes Moist - Respiratory Exam Respiratory Exam: Clear to Ausculation Bilateral. absent: Rales - GI/Abdominal Exam GI & Abdominal Exam: Soft. absent: Tenderness (toe unchanged) Assessment and Plan - Assessment and Plan (Free Text) Plan: osteomyelitis likely will try to get ct of toe done outp pt states she had one done IV abx per Dr. Gilliland will need IV for at least 6 weeks likely she does not want rehab will see if can be administer abx in dialysis, depending on what is recommended. Discussed with pt. DM; stable bp is good renal: HD by Dr. Trejo
[2018-06-19] MEDS: Piperacill/Tazo 2.25gm in Dex 2.25 GM/50 ML BAG IVPB SCH (19:29)
[2018-06-20 07:40] LABS: BASO % 0.9 % (0.0-2.0); EOS # 0.1 K/uL (0.0-0.7); EOS % 1.9 % (0.0-4.0); HEMOGLOBIN 9.5 g/dL (11.0-16.0); MEAN CELL VOLUME 90.8 fL (81.0-99.0); MEAN CORPUSCULAR HEMOGLOBIN 30.3 pg (27.0-31.0); MEAN CORPUSCULAR HGB CONC 33.3 g/dL (33.0-37.0); MONO # 0.6 K/uL (0.0-0.8); MONO % 11.6 % (0.0-10.0); NEUT # 3.6 K/uL (1.8-7.0); NEUT % 66.6 % (50.0-75.0); RBC 3.13 Mil/uL (3.80-5.20); RED CELL DISTRIBUTION WIDTH 18.8 % (11.5-14.5); WHITE BLOOD COUNT 5.4 K/uL (4.8-10.8)
[2018-06-20] MEDS: Piperacill/Tazo 2.25gm in Dex 2.25 GM/50 ML BAG IVPB SCH ×3 (07:54→16:39)
[2018-06-20 07:58] LABS: ALBUMIN 3.5 g/dL (3.5-5.0); CALCIUM 9.9 mg/dl (8.6-10.4)
[2018-06-20] MEDS: (Novolog) Insulin Aspart, Recombinant 100 u/ml 10 ml vial SC SCH ×4 (08:00→22:35)
[2018-06-20] MEDS: Sevelamer Carb 2.4 gm/Packet PO SCH ×3 (08:34→16:42)
--- NOTE | 2018-06-20 09:14 | CP.PCM.PN ---
Subjective - Date & Time of Evaluation Date of Evaluation: 06/20/18 Time of Evaluation: 09:14 - Subjective Subjective: Pt reports feeling ok unremarkable night had HD yesterday having breakfast now Objective - Vital Signs/Intake and Output Vital Signs (last 24 hours): Temp Pulse Resp BP Pulse Ox 98.3 F 66 20 111/65 95 06/20/18 07:00 06/20/18 07:00 06/20/18 07:00 06/20/18 07:00 06/20/18 07:00 - Medications Medications: Current Medications Amlodipine Besylate (Norvasc) 10 mg PO DAILY [facility] Last Admin: 06/19/18 09:02 Dose: 10 mg Apixaban (Eliquis) 2.5 mg PO BID [facility] Last Admin: 06/19/18 19:07 Dose: 2.5 mg Cinacalcet (Sensipar) 60 mg PO BID [facility] Last Admin: 06/19/18 19:07 Dose: 60 mg Clonidine HCl (Catapres) 0.2 mg PO BID [facility] Last Admin: 06/19/18 19:07 Dose: Not Given Hydralazine HCl (Apresoline) 25 mg PO Q8 [facility] Last Admin: 06/20/18 06:29 Dose: Not Given Vancomycin HCl 1 gm/ Sodium (Chloride) 250 mls @ 166.7 mls/hr IVPB MWF [facility]; Protocol Last Admin: 06/19/18 19:55 Dose: 166.7 mls/hr Piperacillin Sod/Tazobactam Sod (Zosyn 2.25 Gm Iv Premix) 2.25 gm in 50 mls @ 100 mls/hr IVPB Q8H [facility]; Protocol Last Admin: 06/20/18 07:54 Dose: 100 mls/hr Insulin Aspart (Novolog) 0 unit SC ACHS [facility]; Protocol Last Admin: 06/20/18 08:00 Dose: Not Given Mupirocin (Bactroban Ointment) 0 gm TOP DAILY [facility] Last Admin: 06/19/18 11:12 Dose: 1 applic Sevelamer Carbonate (Renvela) 2.4 gm PO TIDCC [facility] Last Admin: 06/20/18 08:34 Dose: 2.4 gm - Labs Labs: 06/20/18 07:30 06/20/18 07:30 - Constitutional Appears: Well, Non-toxic - Eye Exam Eye Exam: Normal appearance - ENT Exam ENT Exam: Mucous Membranes Moist - Respiratory Exam Respiratory Exam: Clear to Ausculation Bilateral, NORMAL BREATHING PATTERN - Cardiovascular Exam Cardiovascular Exam: REGULAR RHYTHM, RRR, +S1, +S2. absent: JVD - GI/Abdominal Exam GI & Abdominal Exam: Soft, Normal Bowel Sounds. absent: Tenderness Assessment and Plan - Assessment and Plan (Free Text) Assessment: Infected toe, likely osteo awaiting ID recommendations for abx pt refuses any amputations anemia, will get iron studies bp stable sugars stable.
--- NOTE | 2018-06-20 09:29 | CP.PCM.PN ---
Subjective - Date & Time of Evaluation Date of Evaluation: 06/20/18 Time of Evaluation: 09:27 - Subjective Subjective: in bed comfortable afebrile had HD yesterday no complaints ROS- 10 point ROS negative Objective - Vital Signs/Intake and Output Vital Signs (last 24 hours): Temp Pulse Resp BP Pulse Ox 98.3 F 66 20 111/65 95 06/20/18 07:00 06/20/18 07:00 06/20/18 07:00 06/20/18 07:00 06/20/18 07:00 - Medications Medications: Current Medications Amlodipine Besylate (Norvasc) 10 mg PO DAILY [facility] Last Admin: 06/19/18 09:02 Dose: 10 mg Apixaban (Eliquis) 2.5 mg PO BID [facility] Last Admin: 06/19/18 19:07 Dose: 2.5 mg Cinacalcet (Sensipar) 60 mg PO BID [facility] Last Admin: 06/19/18 19:07 Dose: 60 mg Clonidine HCl (Catapres) 0.2 mg PO BID [facility] Last Admin: 06/19/18 19:07 Dose: Not Given Hydralazine HCl (Apresoline) 25 mg PO Q8 [facility] Last Admin: 06/20/18 06:29 Dose: Not Given Vancomycin HCl 1 gm/ Sodium (Chloride) 250 mls @ 166.7 mls/hr IVPB MWF [facility]; Protocol Last Admin: 06/19/18 19:55 Dose: 166.7 mls/hr Piperacillin Sod/Tazobactam Sod (Zosyn 2.25 Gm Iv Premix) 2.25 gm in 50 mls @ 100 mls/hr IVPB Q8H [facility]; Protocol Last Admin: 06/20/18 07:54 Dose: 100 mls/hr Insulin Aspart (Novolog) 0 unit SC ACHS [facility]; Protocol Last Admin: 06/20/18 08:00 Dose: Not Given Mupirocin (Bactroban Ointment) 0 gm TOP DAILY [facility] Last Admin: 06/19/18 11:12 Dose: 1 applic Sevelamer Carbonate (Renvela) 2.4 gm PO TIDCC [facility] Last Admin: 06/20/18 08:34 Dose: 2.4 gm - Labs Labs: 06/20/18 07:30 06/20/18 07:30 - Constitutional Appears: Well, Non-toxic - Eye Exam Eye Exam: EOMI, PERRL - ENT Exam ENT Exam: Mucous Membranes Moist - Neck Exam Neck Exam: Full ROM. absent: Lymphadenopathy - Respiratory Exam Respiratory Exam: Clear to Ausculation Bilateral. absent: Rhonchi, Wheezes - Cardiovascular Exam Cardiovascular Exam: REGULAR RHYTHM, +S1, +S2 - GI/Abdominal Exam GI & Abdominal Exam: Soft. absent: Distended, Tenderness - Extremities Exam Extremities Exam: Full ROM. absent: Pedal Edema - Neurological Exam Neurological Exam: Alert, Awake, Oriented x3 - Psychiatric Exam Psychiatric exam: Normal Affect, Normal Mood - Skin Skin Exam: Dry, Intact Assessment and Plan (1) ESRD (end stage renal disease) Status: Acute (2) Osteomyelitis of second toe of left foot Status: Acute (3) Secondary hyperparathyroidism Status: Acute (4) Type 2 diabetes mellitus with diabetic nephropathy Status: Acute - Assessment and Plan (Free Text) Plan: Maintain HD MWF next HD friday BP stable continue antibiotics pt refusing amputation for now
[2018-06-20 12:02] LABS: IRON 42 ug/dL (37-170)
[2018-06-20 12:11] LABS: % IRON SATURATION 24 (20-55); TOTAL IRON BINDING CAPACITY 178 ug/dL (250-450)
--- NOTE | 2018-06-20 13:17 | CP.PCM.PN ---
Subjective - Date & Time of Evaluation Date of Evaluation: 06/20/18 Time of Evaluation: 13:15 - Subjective Subjective: Pt seen at bedside for f/u left 2nd digit ulcer. Exposure of left 2nd digit proximal phalanx head-clinical osteo noted. Pt does not want amputation at all. Vascular note shows pt has severe small vessel disease. Prognosis is guarded. Will cont with local wound care and IV abx for now. Will cont to monitor pt while she is inhouse. Objective - Vital Signs/Intake and Output Vital Signs (last 24 hours): Temp Pulse Resp BP Pulse Ox 98.3 F 66 20 111/65 95 06/20/18 07:00 06/20/18 07:00 06/20/18 07:00 06/20/18 07:00 06/20/18 07:00 - Medications Medications: Current Medications Amlodipine Besylate (Norvasc) 10 mg PO DAILY [facility] Last Admin: 06/20/18 09:31 Dose: 10 mg Apixaban (Eliquis) 2.5 mg PO BID [facility] Last Admin: 06/20/18 09:31 Dose: 2.5 mg Cinacalcet (Sensipar) 60 mg PO BID [facility] Last Admin: 06/20/18 09:31 Dose: 60 mg Clonidine HCl (Catapres) 0.2 mg PO BID [facility] Last Admin: 06/20/18 09:31 Dose: Not Given Hydralazine HCl (Apresoline) 25 mg PO Q8 [facility] Last Admin: 06/20/18 06:29 Dose: Not Given Vancomycin HCl 1 gm/ Sodium (Chloride) 250 mls @ 166.7 mls/hr IVPB MWF [facility]; Protocol Last Admin: 06/19/18 19:55 Dose: 166.7 mls/hr Piperacillin Sod/Tazobactam Sod (Zosyn 2.25 Gm Iv Premix) 2.25 gm in 50 mls @ 100 mls/hr IVPB Q8H [facility]; Protocol Last Admin: 06/20/18 07:54 Dose: 100 mls/hr Insulin Aspart (Novolog) 0 unit SC ACHS [facility]; Protocol Last Admin: 06/20/18 12:13 Dose: Not Given Mupirocin (Bactroban Ointment) 0 gm TOP DAILY [facility] Last Admin: 06/20/18 09:32 Dose: 1 applic Sevelamer Carbonate (Renvela) 2.4 gm PO TIDCC [facility] Last Admin: 06/20/18 12:13 Dose: 2.4 gm - Labs Labs: 06/20/18 07:30 06/20/18 07:30
[2018-06-21] MEDS: Piperacill/Tazo 2.25gm in Dex 2.25 GM/50 ML BAG IVPB SCH ×3 (00:41→17:07)
[2018-06-21] MEDS: (Novolog) Insulin Aspart, Recombinant 100 u/ml 10 ml vial SC SCH ×4 (07:52→21:19)
[2018-06-21] MEDS: Sevelamer Carb 2.4 gm/Packet PO SCH ×3 (08:36→17:07)
--- NOTE | 2018-06-21 08:45 | CP.PCM.PN ---
Subjective - Date & Time of Evaluation Date of Evaluation: 06/21/18 Time of Evaluation: 08:45 - Subjective Subjective: Pt reports feeling well no issues overnight deneis pain no chest pain or sob Objective - Vital Signs/Intake and Output Vital Signs (last 24 hours): Temp Pulse Resp BP Pulse Ox 98.2 F 74 20 114/56 L 99 06/21/18 07:49 06/21/18 07:49 06/21/18 07:49 06/21/18 07:49 06/21/18 07:49 - Medications Medications: Current Medications Amlodipine Besylate (Norvasc) 10 mg PO DAILY [facility] Last Admin: 06/20/18 09:31 Dose: 10 mg Apixaban (Eliquis) 2.5 mg PO BID [facility] Last Admin: 06/20/18 17:21 Dose: 2.5 mg Cinacalcet (Sensipar) 60 mg PO BID [facility] Last Admin: 06/20/18 17:21 Dose: 60 mg Clonidine HCl (Catapres) 0.2 mg PO BID [facility] Last Admin: 06/20/18 17:10 Dose: Not Given Hydralazine HCl (Apresoline) 25 mg PO Q8 [facility] Last Admin: 06/21/18 06:40 Dose: Not Given Vancomycin HCl 1 gm/ Sodium (Chloride) 250 mls @ 166.7 mls/hr IVPB MWF [facility]; Protocol Last Admin: 06/19/18 19:55 Dose: 166.7 mls/hr Piperacillin Sod/Tazobactam Sod (Zosyn 2.25 Gm Iv Premix) 2.25 gm in 50 mls @ 100 mls/hr IVPB Q8H [facility]; Protocol Last Admin: 06/21/18 06:42 Dose: 100 mls/hr Insulin Aspart (Novolog) 0 unit SC ACHS [facility]; Protocol Last Admin: 06/21/18 07:52 Dose: Not Given Mupirocin (Bactroban Ointment) 0 gm TOP DAILY [facility] Last Admin: 06/20/18 09:32 Dose: 1 applic Sevelamer Carbonate (Renvela) 2.4 gm PO TIDCC [facility] Last Admin: 06/21/18 08:36 Dose: 2.4 gm - Labs Labs: 06/20/18 07:30 06/20/18 07:30 - Constitutional Appears: Well, Non-toxic - Eye Exam Eye Exam: Normal appearance - ENT Exam ENT Exam: Mucous Membranes Moist - Respiratory Exam Respiratory Exam: Clear to Ausculation Bilateral - GI/Abdominal Exam GI & Abdominal Exam: Soft, Normal Bowel Sounds. absent: Tenderness - Extremities Exam Extremities Exam: absent: Joint Swelling - Psychiatric Exam Psychiatric exam: Normal Affect Assessment and Plan - Assessment and Plan (Free Text) Assessment: toe ulcer neg blood culture awaiting wound culture and ID recomm for abx bp is good sugars controlled on HD
[2018-06-21 10:06] LABS: FOLATE 4.5 ng/mL
--- NOTE | 2018-06-21 18:34 | CP.PCM.PN ---
Subjective - Date & Time of Evaluation Date of Evaluation: 06/21/18 Time of Evaluation: 08:00 - Subjective Subjective: seen on rounds IV rx renewed left second digit with clinical OM refuses amputation Objective - Vital Signs/Intake and Output Vital Signs (last 24 hours): Temp Pulse Resp BP Pulse Ox 98.1 F 78 20 138/82 97 06/21/18 16:00 06/21/18 16:00 06/21/18 16:00 06/21/18 16:00 06/21/18 16:00 - Medications Medications: Current Medications Amlodipine Besylate (Norvasc) 10 mg PO DAILY [facility] Last Admin: 06/21/18 09:13 Dose: Not Given Apixaban (Eliquis) 2.5 mg PO BID [facility] Last Admin: 06/21/18 17:07 Dose: 2.5 mg Cinacalcet (Sensipar) 60 mg PO BID [facility] Last Admin: 06/21/18 17:07 Dose: 60 mg Clonidine HCl (Catapres) 0.2 mg PO BID [facility] Last Admin: 06/21/18 17:07 Dose: 0.2 mg Hydralazine HCl (Apresoline) 25 mg PO Q8 [facility] Last Admin: 06/21/18 14:35 Dose: Not Given Vancomycin HCl 1 gm/ Sodium (Chloride) 250 mls @ 166.7 mls/hr IVPB MWF [facility]; Protocol Last Admin: 06/19/18 19:55 Dose: 166.7 mls/hr Piperacillin Sod/Tazobactam Sod (Zosyn 2.25 Gm Iv Premix) 2.25 gm in 50 mls @ 100 mls/hr IVPB Q8H [facility]; Protocol Last Admin: 06/21/18 17:07 Dose: 100 mls/hr Insulin Aspart (Novolog) 0 unit SC ACHS [facility]; Protocol Last Admin: 06/21/18 16:35 Dose: Not Given Mupirocin (Bactroban Ointment) 0 gm TOP DAILY [facility] Last Admin: 06/21/18 09:13 Dose: 1 applic Sevelamer Carbonate (Renvela) 2.4 gm PO TIDCC [facility] Last Admin: 06/21/18 17:07 Dose: 2.4 gm - Labs Labs: 06/20/18 07:30 06/20/18 07:30 - Constitutional Appears: Non-toxic, No Acute Distress, Chronically Ill - Head Exam Head Exam: ATRAUMATIC, NORMAL INSPECTION, NORMOCEPHALIC - Eye Exam Eye Exam: EOMI, Normal appearance, PERRL Pupil Exam: NORMAL ACCOMODATION, PERRL - ENT Exam ENT Exam: Mucous Membranes Moist, Normal Exam - Neck Exam Neck Exam: Full ROM, Normal Inspection. absent: Lymphadenopathy - Respiratory Exam Respiratory Exam: Clear to Ausculation Bilateral, NORMAL BREATHING PATTERN - Cardiovascular Exam Cardiovascular Exam: REGULAR RHYTHM, +S1, +S2. absent: Murmur - GI/Abdominal Exam GI & Abdominal Exam: Soft, Normal Bowel Sounds. absent: Tenderness - Rectal Exam Rectal Exam: Deferred - Exam Exam: NORMAL INSPECTION - Extremities Exam Extremities Exam: Full ROM, Normal Capillary Refill, Normal Inspection. absent: Joint Swelling, Pedal Edema - Back Exam Back Exam: NORMAL INSPECTION - Neurological Exam Neurological Exam: Alert, Awake, CN II-XII Intact, Normal Gait, Oriented x3 - Psychiatric Exam Psychiatric exam: Depressed - Skin Skin Exam: Dry, Warm. absent: Normal Color Additional comments: left seconf digit wound + less drainage Assessment and Plan (1) ESRD (end stage renal disease) Status: Acute (2) Osteomyelitis of second toe of left foot Status: Acute (3) Secondary hyperparathyroidism Status: Acute - Assessment and Plan (Free Text) Assessment: cont IV rx and wound care await cultures refusing surgery may need [facility] placement depending on wound culture results will need 6-8 weeks IV rx
[2018-06-22] MEDS: Piperacill/Tazo 2.25gm in Dex 2.25 GM/50 ML BAG IVPB SCH ×4 (00:15→23:32)
[2018-06-22] MEDS: (Novolog) Insulin Aspart, Recombinant 100 u/ml 10 ml vial SC SCH ×4 (07:33→22:01)
[2018-06-22] MEDS: Sevelamer Carb 2.4 gm/Packet PO SCH ×4 (08:36→18:00)
--- NOTE | 2018-06-22 08:57 | CP.PCM.PN ---
Subjective - Date & Time of Evaluation Date of Evaluation: 06/22/18 Time of Evaluation: 08:57 - Subjective Subjective: Podiatry Progress Note - Dr. Shafer 67F seen and evaluated this AM for left 2nd digit ulcer + OM. In HD at time of visit. NAD. No acute events overnight. Pain in 2nd digit unchanged. Patient refusing surgical intervention and refusing to be placed in [facility], requesting outpatient infusion tx at home. Denies F/C/N/V/CP/SOB. Objective - Vital Signs/Intake and Output Vital Signs (last 24 hours): Temp Pulse Resp BP Pulse Ox 98.1 F 76 20 113/63 96 06/22/18 08:00 06/22/18 08:00 06/22/18 08:00 06/22/18 08:00 06/22/18 08:00 - Medications Medications: Current Medications Amlodipine Besylate (Norvasc) 10 mg PO DAILY [facility] Last Admin: 06/21/18 09:13 Dose: Not Given Apixaban (Eliquis) 2.5 mg PO BID [facility] Last Admin: 06/21/18 17:07 Dose: 2.5 mg Cinacalcet (Sensipar) 60 mg PO BID [facility] Last Admin: 06/21/18 17:07 Dose: 60 mg Clonidine HCl (Catapres) 0.2 mg PO BID [facility] Last Admin: 06/21/18 17:07 Dose: 0.2 mg Hydralazine HCl (Apresoline) 25 mg PO Q8 [facility] Last Admin: 06/22/18 06:30 Dose: Not Given Vancomycin HCl 1 gm/ Sodium (Chloride) 250 mls @ 166.7 mls/hr IVPB MWF [facility]; Protocol Last Admin: 06/19/18 19:55 Dose: 166.7 mls/hr Piperacillin Sod/Tazobactam Sod (Zosyn 2.25 Gm Iv Premix) 2.25 gm in 50 mls @ 100 mls/hr IVPB Q8H [facility]; Protocol Last Admin: 06/22/18 06:48 Dose: 100 mls/hr Insulin Aspart (Novolog) 0 unit SC ACHS [facility]; Protocol Last Admin: 06/22/18 07:33 Dose: Not Given Mupirocin (Bactroban Ointment) 0 gm TOP DAILY [facility] Last Admin: 06/21/18 09:13 Dose: 1 applic Sevelamer Carbonate (Renvela) 2.4 gm PO TIDCC [facility] Last Admin: 06/22/18 08:36 Dose: 2.4 gm - Labs Labs: 06/20/18 07:30 06/20/18 07:30 - Constitutional Appears: Non-toxic, No Acute Distress - Extremities Exam Additional comments: Lower extremity focused exam: Vasc: DP/PT pulses palpable 1/4 B/L. Temperature gradient warm to warm on left, warm to cool on R. Mild localized edema noted about the 2nd digit left foot. Pedal hair growth absent Derm: open ulceration noted to 2nd digit PIPJ of left foot approx 0.8cm x 0.6cm x 0.3cm with 80% fibrotic and 20% granular wound base. (+) probe to bone noted. No malodor, no active drainage, no purulence, no fluctuance or suspicion of abscess formation. No james-wound erythema noted at present. No other open lesions noted. Dystrophic thickened toenails to B/L hallucal toenails noted Neuro: protective sensation grossly intact Ortho: mild hammertoe contractures noted to lesser digits B/L. mild tenderness elicited to palpation of left 2nd digit at ulceration site - Neurological Exam Neurological Exam: Alert, Awake, Oriented x3 Assessment and Plan - Assessment and Plan (Free Text) Assessment: 67 y/o diabetic female with left foot 2nd digit ulceration with clinical osteom yelitis, secondary to pressure Plan Patient seen and evaluated VSS Left foot x-rays - Cortical disruption/irregularity distal phalanx of left 2nd digit cosistent with clinically apparent OM Wound site cleaned with saline, dressed with bactroban, DSD ID recs appreciated - d/c on IV rx for 6-8 weeks Discussed with patient conservative vs. surgical options along with associated risks and complications. Patient refusing surgical intervention at this time Left foot wound culture reveals growth of staph aureus Vascular recs appreciated - no acute vascular surgery intervention at this time Podiatry will continue to follow
[2018-06-22 11:27] LABS: BASO # 0.1 K/uL (0.0-0.2); BASO % 1.1 % (0.0-2.0); EOS # 0.2 K/uL (0.0-0.7); EOS % 3.1 % (0.0-4.0); HEMOGLOBIN 9.1 g/dL (11.0-16.0); LYMPH # 1.1 K/uL (1.0-4.3); LYMPH % 20.1 % (20.0-40.0); MEAN CELL VOLUME 89.3 fL (81.0-99.0); MEAN CORPUSCULAR HEMOGLOBIN 30.3 pg (27.0-31.0); MEAN CORPUSCULAR HGB CONC 33.9 g/dL (33.0-37.0); MEAN PLATELET VOLUME 7.3 fL (7.2-11.7); MONO # 0.2 K/uL (0.0-0.8); MONO % 4.3 % (0.0-10.0); NEUT # 3.9 K/uL (1.8-7.0); NEUT % 71.4 % (50.0-75.0); RED CELL DISTRIBUTION WIDTH 18.9 % (11.5-14.5); WHITE BLOOD COUNT 5.5 K/uL (4.8-10.8)
[2018-06-22] MEDS ORDERED: Epoetin Alfa Dialysis 3000 UNIT/ML Inj IV SCH (11:29)
[2018-06-22 11:40] LABS: CALCIUM 8.8 mg/dl (8.6-10.4)
--- NOTE | 2018-06-22 12:00 | CP.PCM.PN ---
Subjective - Date & Time of Evaluation Date of Evaluation: 06/22/18 Time of Evaluation: 11:57 - Subjective Subjective: Seen in dialysis , HD ongoing UF goal 3500 cc BP stable afebrile no SOB no other complaints ROS- as per HPI, other than that 10 point ROS negative Objective - Vital Signs/Intake and Output Vital Signs (last 24 hours): Temp Pulse Resp BP Pulse Ox 97.7 F 78 20 174/77 H 99 06/22/18 10:00 06/22/18 10:00 06/22/18 10:00 06/22/18 11:30 06/22/18 10:00 - Medications Medications: Current Medications Acetaminophen (Tylenol 325mg Tab) 650 mg PO Q6 PRN PRN Reason: Pain, moderate (4-7) Amlodipine Besylate (Norvasc) 10 mg PO DAILY [facility] Last Admin: 06/22/18 10:14 Dose: Not Given Apixaban (Eliquis) 2.5 mg PO BID [facility] Last Admin: 06/22/18 10:14 Dose: Not Given Cinacalcet (Sensipar) 60 mg PO BID [facility] Last Admin: 06/22/18 10:14 Dose: Not Given Clonidine HCl (Catapres) 0.2 mg PO BID [facility] Last Admin: 06/22/18 10:14 Dose: Not Given Epoetin Vinay (Procrit) 3,000 unit IV [facility] Hydralazine HCl (Apresoline) 25 mg PO Q8 [facility] Last Admin: 06/22/18 06:30 Dose: Not Given Vancomycin HCl 1 gm/ Sodium (Chloride) 250 mls @ 166.7 mls/hr IVPB MWF [facility]; Protocol Last Admin: 06/19/18 19:55 Dose: 166.7 mls/hr Piperacillin Sod/Tazobactam Sod (Zosyn 2.25 Gm Iv Premix) 2.25 gm in 50 mls @ 100 mls/hr IVPB Q8H [facility]; Protocol Last Admin: 06/22/18 06:48 Dose: 100 mls/hr Insulin Aspart (Novolog) 0 unit SC ACHS [facility]; Protocol Last Admin: 06/22/18 07:33 Dose: Not Given Mupirocin (Bactroban Ointment) 0 gm TOP DAILY [facility] Last Admin: 06/22/18 10:14 Dose: Not Given Sevelamer Carbonate (Renvela) 2.4 gm PO TIDCC [facility] Last Admin: 06/22/18 08:36 Dose: 2.4 gm - Labs Labs: 06/22/18 11:00 06/22/18 11:00 - Constitutional Appears: Well, Non-toxic - Head Exam Head Exam: ATRAUMATIC, NORMOCEPHALIC - Eye Exam Eye Exam: EOMI, PERRL - ENT Exam ENT Exam: Mucous Membranes Moist - Neck Exam Neck Exam: Full ROM - Respiratory Exam Respiratory Exam: Clear to Ausculation Bilateral. absent: Rhonchi, Wheezes - Cardiovascular Exam Cardiovascular Exam: REGULAR RHYTHM, +S1, +S2 - GI/Abdominal Exam GI & Abdominal Exam: Soft. absent: Distended, Tenderness - Extremities Exam Extremities Exam: Full ROM. absent: Pedal Edema - Neurological Exam Neurological Exam: Alert, Awake, Oriented x3 - Psychiatric Exam Psychiatric exam: Normal Affect, Normal Mood - Skin Skin Exam: Normal Color, Warm Assessment and Plan (1) ESRD (end stage renal disease) Status: Acute (2) Osteomyelitis of second toe of left foot Status: Acute (3) Secondary hyperparathyroidism Status: Acute (4) Type 2 diabetes mellitus with diabetic nephropathy Status: Acute - Assessment and Plan (Free Text) Plan: HD today continue ABx epo with HD- 3000 units for anemia Bp stable pt does not want amputation await further vascular recs
[2018-06-22] MEDS: Epoetin Alfa Dialysis 3000 UNIT/ML Inj IV SCH (12:12)
--- NOTE | 2018-06-22 17:23 | CP.PCM.PN ---
Subjective - Date & Time of Evaluation Date of Evaluation: 06/22/18 Time of Evaluation: 17:23 - Subjective Subjective: Pt reports feeling well, except for constipation pt reports no chest pain or sob no fever Objective - Vital Signs/Intake and Output Vital Signs (last 24 hours): Temp Pulse Resp BP Pulse Ox 98.4 F 87 20 116/61 95 06/22/18 16:18 06/22/18 16:18 06/22/18 16:18 06/22/18 16:18 06/22/18 16:18 - Medications Medications: Current Medications Acetaminophen (Tylenol 325mg Tab) 650 mg PO Q6 PRN PRN Reason: Pain, moderate (4-7) Amlodipine Besylate (Norvasc) 10 mg PO DAILY [facility] Last Admin: 06/22/18 10:14 Dose: Not Given Apixaban (Eliquis) 2.5 mg PO BID [facility] Last Admin: 06/22/18 10:14 Dose: Not Given Cinacalcet (Sensipar) 60 mg PO BID [facility] Last Admin: 06/22/18 10:14 Dose: Not Given Clonidine HCl (Catapres) 0.2 mg PO BID [facility] Last Admin: 06/22/18 10:14 Dose: Not Given Epoetin Vinay (Procrit) 3,[address] [facility] Last Admin: 06/22/18 12:12 Dose: 3,000 unit Hydralazine HCl (Apresoline) 25 mg PO Q8 [facility] Last Admin: 06/22/18 14:01 Dose: Not Given Vancomycin HCl 1 gm/ Sodium (Chloride) 250 mls @ 166.7 mls/hr IVPB [facility]; Protocol Last Admin: 06/22/18 14:24 Dose: 166.7 mls/hr Piperacillin Sod/Tazobactam Sod (Zosyn 2.25 Gm Iv Premix) 2.25 gm in 50 mls @ 100 mls/hr IVPB Q8H [facility]; Protocol Last Admin: 06/22/18 15:11 Dose: 100 mls/hr Insulin Aspart (Novolog) 0 unit SC ACHS [facility]; Protocol Last Admin: 06/22/18 11:58 Dose: Not Given Lactulose (Enulose) 30 gm PO ONCE ONE Stop: 06/22/18 19:01 Mupirocin (Bactroban Ointment) 0 gm TOP DAILY [facility] Last Admin: 06/22/18 10:14 Dose: Not Given Sevelamer Carbonate (Renvela) 2.4 gm PO TIDCC [facility] Last Admin: 06/22/18 14:20 Dose: 2.4 gm - Labs Labs: 06/22/18 11:00 06/22/18 11:00 - Constitutional Appears: Well, Non-toxic - Eye Exam Eye Exam: Normal appearance - ENT Exam ENT Exam: Mucous Membranes Moist - Respiratory Exam Respiratory Exam: Clear to Ausculation Bilateral - GI/Abdominal Exam GI & Abdominal Exam: Soft, Normal Bowel Sounds. absent: Tenderness - Extremities Exam Extremities Exam: absent: Joint Swelling Assessment and Plan - Assessment and Plan (Free Text) Plan: Infected toe +culture Staph neg blood culture abx per ID htn stable constipation added lactulose
--- NOTE | 2018-06-22 22:14 | CP.PCM.PN ---
Subjective - Date & Time of Evaluation Date of Evaluation: 06/22/18 Time of Evaluation: 08:00 - Subjective Subjective: awake alert afebrile 'wound same MRSA + Objective - Vital Signs/Intake and Output Vital Signs (last 24 hours): Temp Pulse Resp BP Pulse Ox 98.4 F 87 20 116/61 95 06/22/18 16:18 06/22/18 16:18 06/22/18 16:18 06/22/18 16:18 06/22/18 16:18 Intake and Output: 06/22/18 06/23/18 18:59 06:59 Intake Total 1300 Balance 1300 - Medications Medications: Current Medications Acetaminophen (Tylenol 325mg Tab) 650 mg PO Q6 PRN PRN Reason: Pain, moderate (4-7) Amlodipine Besylate (Norvasc) 10 mg PO DAILY [facility] Last Admin: 06/22/18 10:14 Dose: Not Given Apixaban (Eliquis) 2.5 mg PO BID [facility] Last Admin: 06/22/18 18:00 Dose: 2.5 mg Cinacalcet (Sensipar) 60 mg PO BID [facility] Last Admin: 06/22/18 18:00 Dose: 60 mg Clonidine HCl (Catapres) 0.2 mg PO BID [facility] Last Admin: 06/22/18 18:00 Dose: 0.2 mg Epoetin Vinay (Procrit) 3,000 unit IV [facility] [place] Last Admin: 06/22/18 12:12 Dose: 3,000 unit Hydralazine HCl (Apresoline) 25 mg PO Q8 [facility] Last Admin: 06/22/18 21:15 Dose: 25 mg Vancomycin HCl 1 gm/ Sodium (Chloride) 250 mls @ 166.7 mls/hr IVPB MWF [facility]; Protocol Last Admin: 06/22/18 14:24 Dose: 166.7 mls/hr Piperacillin Sod/Tazobactam Sod (Zosyn 2.25 Gm Iv Premix) 2.25 gm in 50 mls @ 100 mls/hr IVPB Q8H [facility]; Protocol Last Admin: 06/22/18 15:11 Dose: 100 mls/hr Insulin Aspart (Novolog) 0 unit SC [facility]; Protocol Last Admin: 06/22/18 22:01 Dose: Not Given Lactulose (Enulose) 20 gm PO [facility] Last Admin: 06/22/18 21:16 Dose: 20 gm Mupirocin (Bactroban Ointment) 0 gm TOP DAILY [facility] Last Admin: 06/22/18 10:14 Dose: Not Given Sevelamer Carbonate (Renvela) 2.4 gm PO TIDCC [facility] Last Admin: 06/22/18 18:00 Dose: 2.4 gm - Labs Labs: 06/22/18 11:00 06/22/18 11:00 - Constitutional Appears: Non-toxic, Chronically Ill - Head Exam Head Exam: ATRAUMATIC, NORMAL INSPECTION, NORMOCEPHALIC - Eye Exam Eye Exam: EOMI, Normal appearance, PERRL Pupil Exam: NORMAL ACCOMODATION, PERRL - ENT Exam ENT Exam: Mucous Membranes Moist, Normal Exam - Neck Exam Neck Exam: Full ROM, Normal Inspection. absent: Lymphadenopathy - Respiratory Exam Respiratory Exam: Clear to Ausculation Bilateral, NORMAL BREATHING PATTERN - Cardiovascular Exam Cardiovascular Exam: REGULAR RHYTHM, +S1, +S2. absent: Murmur - GI/Abdominal Exam GI & Abdominal Exam: Soft, Normal Bowel Sounds. absent: Tenderness - Rectal Exam Rectal Exam: Deferred - Extremities Exam Extremities Exam: Full ROM, Normal Capillary Refill, Normal Inspection. absent: Joint Swelling, Pedal Edema - Back Exam Back Exam: NORMAL INSPECTION - Neurological Exam Neurological Exam: Alert, Awake, CN II-XII Intact, Oriented x3. absent: Normal Gait - Psychiatric Exam Psychiatric exam: Depressed - Skin Skin Exam: Dry Additional comments: left second digit with hyperpigmented skin ulcer which probes to bone Assessment and Plan (1) ESRD (end stage renal disease) Status: Acute (2) Osteomyelitis of second toe of left foot Status: Acute (3) Secondary hyperparathyroidism Status: Acute - Assessment and Plan (Free Text) Assessment: IV rx in progress d/c on IV rx for 6-8 weeks refuses amputation
[2018-06-23] MEDS: (Novolog) Insulin Aspart, Recombinant 100 u/ml 10 ml vial SC SCH ×3 (08:00→18:05)
[2018-06-23] MEDS: Piperacill/Tazo 2.25gm in Dex 2.25 GM/50 ML BAG IVPB SCH ×3 (08:05→23:06)
--- NOTE | 2018-06-23 08:35 | CP.PCM.PN ---
Subjective - Date & Time of Evaluation Date of Evaluation: 06/23/18 Time of Evaluation: 08:33 - Subjective Subjective: Feels well overall Notes reviewed No overnight events reported Tolerating dialysis schedule well No pain reported No f/c Appetite good ROS- as per HPI, other than that 10 point ROS negative Objective - Vital Signs/Intake and Output Vital Signs (last 24 hours): Temp Pulse Resp BP Pulse Ox 98.1 F 72 20 127/67 97 06/23/18 07:51 06/23/18 07:51 06/23/18 07:51 06/23/18 07:51 06/23/18 07:51 Intake and Output: 06/23/18 06/23/18 06:59 18:59 Intake Total 250 Balance 250 - Medications Medications: Current Medications Acetaminophen (Tylenol 325mg Tab) 650 mg PO Q6 PRN PRN Reason: Pain, moderate (4-7) Amlodipine Besylate (Norvasc) 10 mg PO DAILY [facility] Last Admin: 06/22/18 10:14 Dose: Not Given Apixaban (Eliquis) 2.5 mg PO BID [facility] Last Admin: 06/22/18 18:00 Dose: 2.5 mg Cinacalcet (Sensipar) 60 mg PO BID [facility] Last Admin: 06/22/18 18:00 Dose: 60 mg Clonidine HCl (Catapres) 0.2 mg PO BID [facility] Last Admin: 06/22/18 18:00 Dose: 0.2 mg Epoetin Vinay (Procrit) 3,000 unit IV MWF [facility] Last Admin: 06/22/18 12:12 Dose: 3,000 unit Hydralazine HCl (Apresoline) 25 mg PO Q8 [facility] Last Admin: 06/23/18 05:59 Dose: 25 mg Vancomycin HCl 1 gm/ Sodium (Chloride) 250 mls @ 166.7 mls/hr IVPB MWF [facility]; Protocol Last Admin: 06/22/18 14:24 Dose: 166.7 mls/hr Piperacillin Sod/Tazobactam Sod (Zosyn 2.25 Gm Iv Premix) 2.25 gm in 50 mls @ 100 mls/hr IVPB Q8H [facility]; Protocol Last Admin: 06/22/18 23:32 Dose: 100 mls/hr Insulin Aspart (Novolog) 0 unit SC [facility]; Protocol Last Admin: 06/22/18 22:01 Dose: Not Given Lactulose (Enulose) 20 gm PO HS [facility] Last Admin: 06/22/18 21:16 Dose: 20 gm Mupirocin (Bactroban Ointment) 0 gm TOP DAILY [facility] Last Admin: 06/22/18 10:14 Dose: Not Given Sevelamer Carbonate (Renvela) 2.4 gm PO TIDCC [facility] Last Admin: 06/22/18 18:00 Dose: 2.4 gm - Labs Labs: 06/22/18 11:00 06/22/18 11:00 - Constitutional Appears: Well, Non-toxic - Head Exam Head Exam: ATRAUMATIC, NORMAL INSPECTION - Eye Exam Eye Exam: EOMI, Normal appearance - ENT Exam ENT Exam: Mucous Membranes Moist, Normal Oropharynx - Respiratory Exam Respiratory Exam: Clear to Ausculation Bilateral. absent: Rales, Rhonchi - Cardiovascular Exam Cardiovascular Exam: +S1, +S2. absent: Rubs - GI/Abdominal Exam GI & Abdominal Exam: Soft, Normal Bowel Sounds - Extremities Exam Extremities Exam: absent: Joint Swelling, Pedal Edema - Neurological Exam Neurological Exam: Alert, Awake Assessment and Plan (1) ESRD (end stage renal disease) Status: Acute (2) Osteomyelitis of second toe of left foot Status: Acute (3) Secondary hyperparathyroidism Status: Acute (4) Type 2 diabetes mellitus with diabetic nephropathy Status: Acute (5) Complication of arteriovenous dialysis fistula Status: Acute - Assessment and Plan (Free Text) Assessment: Maintain dialysis schedule BP stable Continue current meds Follow ID management of osteo
[2018-06-23] MEDS: Sevelamer Carb 2.4 gm/Packet PO SCH ×3 (10:03→18:13)
--- NOTE | 2018-06-23 11:38 | CP.PCM.PN ---
Subjective - Date & Time of Evaluation Date of Evaluation: 06/23/18 Time of Evaluation: 11:37 - Subjective Subjective: Pt seen at bedside for f/u left 2nd digit ulcer with clinical OM. Pt is going home on IV abx. Pt still refuses amp of digit. Pt to have home care nurse for dressing changes. Pt to come to office next week. Objective - Vital Signs/Intake and Output Vital Signs (last 24 hours): Temp Pulse Resp BP Pulse Ox 98.1 F 72 20 127/67 97 06/23/18 07:51 06/23/18 07:51 06/23/18 07:51 06/23/18 07:51 06/23/18 07:51 Intake and Output: 06/23/18 06/23/18 06:59 18:59 Intake Total 250 Balance 250 - Medications Medications: Current Medications Acetaminophen (Tylenol 325mg Tab) 650 mg PO Q6 PRN PRN Reason: Pain, moderate (4-7) Amlodipine Besylate (Norvasc) 10 mg PO DAILY [facility] Last Admin: 06/23/18 10:05 Dose: Not Given Apixaban (Eliquis) 2.5 mg PO BID [facility] Last Admin: 06/23/18 10:03 Dose: 2.5 mg Cinacalcet (Sensipar) 60 mg PO BID [facility] Last Admin: 06/23/18 10:03 Dose: 60 mg Clonidine HCl (Catapres) 0.2 mg PO BID [facility] Last Admin: 06/23/18 10:05 Dose: Not Given Epoetin Vinay (Procrit) 3,000 unit IV [facility] [place] Last Admin: 06/22/18 12:12 Dose: 3,000 unit Hydralazine HCl (Apresoline) 25 mg PO Q8 [facility] Last Admin: 06/23/18 05:59 Dose: 25 mg Vancomycin HCl 1 gm/ Sodium (Chloride) 250 mls @ 166.7 mls/hr IVPB [facility] [place]; Protocol Last Admin: 06/22/18 14:24 Dose: 166.7 mls/hr Piperacillin Sod/Tazobactam Sod (Zosyn 2.25 Gm Iv Premix) 2.25 gm in 50 mls @ 100 mls/hr IVPB Q8H [facility]; Protocol Last Admin: 06/23/18 08:05 Dose: 100 mls/hr Insulin Aspart (Novolog) 0 unit SC ACHS [facility]; Protocol Last Admin: 06/23/18 08:00 Dose: Not Given Lactulose (Enulose) 20 gm PO HS [facility] Last Admin: 06/22/18 21:16 Dose: 20 gm Mupirocin (Bactroban Ointment) 0 gm TOP DAILY [facility] Last Admin: 06/23/18 10:05 Dose: Not Given Sevelamer Carbonate (Renvela) 2.4 gm PO TIDCC [facility] Last Admin: 06/23/18 10:03 Dose: 2.4 gm - Labs Labs: 06/22/18 11:00 06/22/18 11:00
--- NOTE | 2018-06-23 18:31 | CP.PCM.PN ---
Subjective - Date & Time of Evaluation Date of Evaluation: 06/23/18 Time of Evaluation: 18:35 - Subjective Subjective: Pt had an episode of nausea earlier and states she does not feel ready to go home. PT wants to wait until tomorrow to make a decision regarding her toe, it does not seem that she is now entertaining an amputation but is perhaps considering rehab. Objective - Vital Signs/Intake and Output Vital Signs (last 24 hours): Temp Pulse Resp BP Pulse Ox 98.0 F 84 20 124/69 99 06/23/18 16:00 06/23/18 16:00 06/23/18 16:00 06/23/18 16:00 06/23/18 16:00 Intake and Output: 06/23/18 06/23/18 06:59 18:59 Intake Total 250 Balance 250 - Medications Medications: Current Medications Acetaminophen (Tylenol 325mg Tab) 650 mg PO Q6 PRN PRN Reason: Pain, moderate (4-7) Amlodipine Besylate (Norvasc) 10 mg PO DAILY [facility] Last Admin: 06/23/18 10:05 Dose: Not Given Apixaban (Eliquis) 2.5 mg PO BID [facility] Last Admin: 06/23/18 18:12 Dose: 2.5 mg Cinacalcet (Sensipar) 60 mg PO BID [facility] Last Admin: 06/23/18 18:12 Dose: 60 mg Clonidine HCl (Catapres) 0.2 mg PO BID [facility] Last Admin: 06/23/18 18:12 Dose: 0.2 mg Epoetin Vinay (Procrit) 3,000 unit IV [facility] [place] Last Admin: 06/22/18 12:12 Dose: 3,000 unit Hydralazine HCl (Apresoline) 25 mg PO Q8 [facility] Last Admin: 06/23/18 13:58 Dose: Not Given Vancomycin HCl 1 gm/ Sodium (Chloride) 250 mls @ 166.7 mls/hr IVPB F [facility]; Protocol Last Admin: 06/22/18 14:24 Dose: 166.7 mls/hr Piperacillin Sod/Tazobactam Sod (Zosyn 2.25 Gm Iv Premix) 2.25 gm in 50 mls @ 100 mls/hr IVPB Q8H [facility]; Protocol Last Admin: 06/23/18 18:11 Dose: 100 mls/hr Insulin Aspart (Novolog) 0 unit SC ACHS [facility]; Protocol Last Admin: 06/23/18 18:05 Dose: Not Given Lactulose (Enulose) 20 gm PO HS [facility] Last Admin: 06/22/18 21:16 Dose: 20 gm Mupirocin (Bactroban Ointment) 0 gm TOP DAILY [facility] Last Admin: 06/23/18 10:05 Dose: Not Given Sevelamer Carbonate (Renvela) 2.4 gm PO TIDCC [facility] Last Admin: 06/23/18 18:13 Dose: 2.4 gm - Labs Labs: 06/22/18 11:00 06/22/18 11:00 - Constitutional Appears: Well, Non-toxic - Eye Exam Eye Exam: Normal appearance - ENT Exam ENT Exam: Mucous Membranes Moist - Respiratory Exam Respiratory Exam: Clear to Ausculation Bilateral - Cardiovascular Exam Cardiovascular Exam: REGULAR RHYTHM. absent: JVD - GI/Abdominal Exam GI & Abdominal Exam: Normal Bowel Sounds (left second toe examined, dressing removed. she has a hyperpimented infected toe which is concerning for possile develpment of further compromise and eventually grangrene.) Assessment and Plan - Assessment and Plan (Free Text) Assessment: left sencond toe staph infection I had a long discussion at the bed side with patient and two of her children. we discussed risk of gangrene and sepsis with the infected toe she understand that this toe may cause sepsis but she states she will not have an amputation. she wants to get outpatient wound care and abx with the hope that her toe will get better. PT understand that this is against our advise. I reviewed the Ct findings of recent study ordered my Dr. Salguero and she stays she is aware of the renal mass. I spoke to the outpatient case manager, pt will stay overnight and think thru her decision. If she does end up rejecting amputation then she will agree to wound care, although she understand that despite wound care and Iv abx she can still develop an overwhelming infection.
--- NOTE | 2018-06-23 22:29 | CP.PCM.PN ---
Subjective - Date & Time of Evaluation Date of Evaluation: 06/23/18 Time of Evaluation: 07:00 - Subjective Subjective: seen on rounds questions adressed refuses amputation of second digit left foot- risk of spread of infection and eventual need for BKA discussed still refuses Objective - Vital Signs/Intake and Output Vital Signs (last 24 hours): Temp Pulse Resp BP Pulse Ox 98.0 F 84 20 124/69 99 06/23/18 16:00 06/23/18 16:00 06/23/18 16:00 06/23/18 16:00 06/23/18 16:00 - Medications Medications: Current Medications Acetaminophen (Tylenol 325mg Tab) 650 mg PO Q6 PRN PRN Reason: Pain, moderate (4-7) Amlodipine Besylate (Norvasc) 10 mg PO DAILY [facility] Last Admin: 06/23/18 10:05 Dose: Not Given Apixaban (Eliquis) 2.5 mg PO BID [facility] Last Admin: 06/23/18 18:12 Dose: 2.5 mg Cinacalcet (Sensipar) 60 mg PO BID [facility] Last Admin: 06/23/18 18:12 Dose: 60 mg Clonidine HCl (Catapres) 0.2 mg PO BID [facility] Last Admin: 06/23/18 18:12 Dose: 0.2 mg Epoetin Vinay (Procrit) 3,000 unit IV [facility] [place] Last Admin: 06/22/18 12:12 Dose: 3,000 unit Hydralazine HCl (Apresoline) 25 mg PO Q8 [facility] Last Admin: 06/23/18 13:58 Dose: Not Given Vancomycin HCl 1 gm/ Sodium (Chloride) 250 mls @ 166.7 mls/hr IVPB [facility] [place]; Protocol Last Admin: 06/22/18 14:24 Dose: 166.7 mls/hr Piperacillin Sod/Tazobactam Sod (Zosyn 2.25 Gm Iv Premix) 2.25 gm in 50 mls @ 100 mls/hr IVPB Q8H [facility]; Protocol Last Admin: 06/23/18 18:11 Dose: 100 mls/hr Insulin Aspart (Novolog) 0 unit SC [facility]; Protocol Last Admin: 06/23/18 18:05 Dose: Not Given Lactulose (Enulose) 20 gm PO [facility] Last Admin: 06/23/18 21:37 Dose: Not Given Mupirocin (Bactroban Ointment) 0 gm TOP DAILY [facility] Last Admin: 06/23/18 10:05 Dose: Not Given Sevelamer Carbonate (Renvela) 2.4 gm PO TIDCC [facility] Last Admin: 06/23/18 18:13 Dose: 2.4 gm - Labs Labs: 06/22/18 11:00 06/22/18 11:00 - Constitutional Appears: Non-toxic, No Acute Distress, Chronically Ill - Head Exam Head Exam: ATRAUMATIC, NORMAL INSPECTION, NORMOCEPHALIC - Eye Exam Eye Exam: EOMI, Normal appearance, PERRL Pupil Exam: NORMAL ACCOMODATION, PERRL - ENT Exam ENT Exam: Mucous Membranes Moist, Normal Exam - Neck Exam Neck Exam: Full ROM, Normal Inspection. absent: Lymphadenopathy - Respiratory Exam Respiratory Exam: Clear to Ausculation Bilateral, NORMAL BREATHING PATTERN - Cardiovascular Exam Cardiovascular Exam: REGULAR RHYTHM, +S1, +S2. absent: Murmur - GI/Abdominal Exam GI & Abdominal Exam: Soft, Normal Bowel Sounds. absent: Tenderness - Rectal Exam Rectal Exam: Deferred - Extremities Exam Extremities Exam: Full ROM, Normal Capillary Refill, Normal Inspection. absent: Joint Swelling, Pedal Edema - Back Exam Back Exam: NORMAL INSPECTION - Neurological Exam Neurological Exam: Alert, Awake, CN II-XII Intact, Normal Gait, Oriented x3 - Psychiatric Exam Psychiatric exam: Normal Affect, Normal Mood - Skin Skin Exam: Dry Additional comments: dark left second digit with probe to bone and drainage Assessment and Plan (1) ESRD (end stage renal disease) Status: Acute (2) Osteomyelitis of second toe of left foot Status: Acute (3) Secondary hyperparathyroidism Status: Acute - Assessment and Plan (Free Text) Assessment: refuses amputation cont IV rx and wound care for 6-8 weeks poor prognosis
[2018-06-24] MEDS: (Novolog) Insulin Aspart, Recombinant 100 u/ml 10 ml vial SC SCH ×4 (07:54→21:31)
[2018-06-24] MEDS: Piperacill/Tazo 2.25gm in Dex 2.25 GM/50 ML BAG IVPB SCH ×4 (08:39→23:47)
[2018-06-24] MEDS: Sevelamer Carb 2.4 gm/Packet PO SCH ×3 (08:50→18:05)
--- NOTE | 2018-06-24 14:11 | CP.PCM.DIS ---
Provider - Provider Date of Admission: 06/18/18 18:58 Attending physician: Fiona Brand MD Consults: 06/18/18 17:01 Podiatry Consult Stat Comment: called pod resident Consulting Provider: Bird Shafer Consulting Physician: Bird Shafer Reason for Consult: clinic osteomyelitis, sent in by Akin Shafer 06/18/18 17:02 Infectious Disease Consult Routine Comment: Consulting Provider: Dominik Gilliland Consulting Physician: Dominik Gilliland Reason for Consult: clinical osteomyelitis Nephrology Consult Routine Comment: Consulting Provider: Omar Trejo Consulting Physician: Omar Trejo Reason for Consult: ESRD on HD MWF Vascular Surgery Routine Comment: Consulting Provider: Santi Salguero Jr. Physician Instructions: Reason For Exam: clinical osteomyelitis 06/18/18 21:22 Nephrology Consult Routine Comment: Consulting Provider: Omar Trejo Consulting Physician: Omar Trejo Reason for Consult: dialysis order Time Spent in preparation of Discharge (in minutes): 30 Hospital Course - Lab Results Lab Results: Micro Results 06/18/18 17:00 Blood Blood Culture - Final NO GROWTH AFTER 5 DAYS 06/18/18 17:00 Blood Gram Stain - Final TEST NOT PERFORMED 06/18/18 17:30 Blood Blood Culture - Final NO GROWTH AFTER 5 DAYS 06/18/18 17:30 Blood Gram Stain - Final TEST NOT PERFORMED 06/20/18 13:15 Foot - Right Gram Stain - Final 06/20/18 13:15 Foot - Right Wound Culture - Final Staphylococcus Aureus Most Recent Lab Values WBC 5.5 K/uL (4.8-10.8) 06/22/18 11:00 RBC 3.00 Mil/uL (3.80-5.20) L 06/22/18 11:00 Hgb 9.1 g/dL (11.0-16.0) L 06/22/18 11:00 Hct 26.8 % (34.0-47.0) L 06/22/18 11:00 MCV 89.3 fL (81.0-99.0) 06/22/18 11:00 MCH 30.3 pg (27.0-31.0) 06/22/18 11:00 MCHC 33.9 g/dL (33.0-37.0) 06/22/18 11:00 RDW 18.9 % (11.5-14.5) H 06/22/18 11:00 Plt Count 252 K/uL (130-400) 06/22/18 11:00 MPV 7.3 fL (7.2-11.7) 06/22/18 11:00 Neut % (Auto) 71.4 % (50.0-75.0) 06/22/18 11:00 Lymph % (Auto) 20.1 % (20.0-40.0) 06/22/18 11:00 [place] % (Auto) 4.3 % (0.0-10.0) 06/22/18 11:00 Eos % (Auto) 3.1 % (0.0-4.0) 06/22/18 11:00 Baso % (Auto) 1.1 % (0.0-2.0) 06/22/18 11:00 Neut # (Auto) 3.9 K/uL (1.8-7.0) 06/22/18 11:00 Lymph # (Auto) 1.1 K/uL (1.0-4.3) 06/22/18 11:00 [place] # (Auto) 0.2 K/uL (0.0-0.8) 06/22/18 11:00 Eos # (Auto) 0.2 K/uL (0.0-0.7) 06/22/18 11:00 Baso # (Auto) 0.1 K/uL (0.0-0.2) 06/22/18 11:00 Sodium 135 mmol/L (132-148) 06/22/18 11:00 Potassium 4.2 mmol/L (3.6-5.2) 06/22/18 11:00 Chloride 92 mmol/L (98-107) L 06/22/18 11:00 Carbon Dioxide 28 mmol/L (22-30) 06/22/18 11:00 Anion Gap 19 (10-20) 06/22/18 11:00 BUN 31 mg/dL (7-17) H 06/22/18 11:00 Creatinine 8.9 mg/dL (0.7-1.2) H* D 06/22/18 11:00 Est GFR ( Amer) 5 06/22/18 11:00 Est GFR (Non-Af Amer) 4 06/22/18 11:00 POC Glucose (mg/dL) 192 mg/dL (65-110) H 06/24/18 10:53 Random Glucose 124 mg/dL (65-105) H D 06/22/18 11:00 Calcium 8.8 mg/dl (8.6-10.4) 06/22/18 11:00 Iron 42 ug/dL (37-170) 06/20/18 11:15 TIBC 178 ug/dL (250-450) L 06/20/18 11:15 % Saturation 24 (20-55) 06/20/18 11:15 Ferritin 979.0 ng/mL 06/21/18 07:33 Total Bilirubin 0.6 mg/dL (0.2-1.3) 06/20/18 07:30 AST 12 U/L (14-36) L D 06/20/18 07:30 ALT 9 U/L (9-52) D 06/20/18 07:30 Alkaline Phosphatase 190 U/L (38-126) H 06/20/18 07:30 Total Protein 7.0 g/dL (6.3-8.3) 06/20/18 07:30 Albumin 3.5 g/dL (3.5-5.0) 06/20/18 07:30 Globulin 3.5 gm/dL (2.2-3.9) 06/20/18 07:30 Albumin/Globulin Ratio 1.0 (1.0-2.1) 06/20/18 07:30 Vitamin B12 708 pg/mL (239-931) 06/21/18 07:33 Folate 4.5 ng/mL 06/21/18 07:33 Vancomycin Trough 10.9 ug/mL (5.0-10.0) H 06/22/18 14:50 - Hospital Course Hospital Course: pt was admitted and evaluated by vascular, automatic thread winder and ID pt was recommended to have toe amputation but she refused. she was clear about the likely possibility that the toe infection could cause sepsis and even , but refused. PT decision to not undergo surgery was made by her with the full knowledge that it is without my medical advise. Pt was sent to rehab for iv abx. Discharge Exam - Head Exam Head Exam: ATRAUMATIC, NORMAL INSPECTION, NORMOCEPHALIC - Eye Exam Eye Exam: Normal appearance - Respiratory Exam Respiratory Exam: Clear to PA & Lateral - Cardiovascular Exam Cardiovascular Exam: REGULAR RHYTHM, RRR, +S1, +S2. absent: JVD Discharge Plan - Discharge Medications Prescriptions: Vancomycin [Vancomycin Inj] 1 gm IVPB MWF 42 Days vial - Follow Up Plan Instructions: Heart Failure, Adult (DC), Hemodialysis (DC), Osteomyelitis (DC) Additional Instructions: continue with HD , MWF as scheduled vancomycin 1gm IVPB after each dialysis x6 weeks follow up with DR Bird Shafer in the office in 1 week/ keep the toe dry and clean CBC, CMP, VANCO TROUGH, q week prior to HD FOLLOW UP WITH PMD in 1 week Referrals: Fiona Brand MD [Staff Provider] - Omar Trejo MD [Staff Provider] - Dominik Gilliland MD [Staff Provider] - Santi Salguero Jr., MD [Staff Provider] -
--- NOTE | 2018-06-24 14:37 | CP.PCM.PN ---
Subjective - Date & Time of Evaluation Date of Evaluation: 06/24/18 Time of Evaluation: 14:37 - Subjective Subjective: Pt seen during dialyisis no sure what to do still thinking if wants to go home or rehab not sure about foot either she understands the medical advise is to have toe amputated Objective - Vital Signs/Intake and Output Vital Signs (last 24 hours): Temp Pulse Resp BP Pulse Ox 97.8 F 76 18 136/63 98 06/24/18 13:40 06/24/18 13:40 06/24/18 13:40 06/24/18 13:55 06/24/18 13:40 - Medications Medications: Current Medications Acetaminophen (Tylenol 325mg Tab) 650 mg PO Q6 PRN PRN Reason: Pain, moderate (4-7) Amlodipine Besylate (Norvasc) 10 mg PO DAILY [facility] Last Admin: 06/24/18 11:00 Dose: Not Given Apixaban (Eliquis) 2.5 mg PO BID [facility] Last Admin: 06/24/18 10:56 Dose: 2.5 mg Cinacalcet (Sensipar) 60 mg PO BID [facility] Last Admin: 06/24/18 10:56 Dose: 60 mg Clonidine HCl (Catapres) 0.2 mg PO BID [facility] Last Admin: 06/24/18 11:00 Dose: Not Given Epoetin Vinay (Procrit) 3,000 unit IV [facility] [place] Last Admin: 06/22/18 12:12 Dose: 3,000 unit Hydralazine HCl (Apresoline) 25 mg PO Q8 [facility] Last Admin: 06/24/18 06:08 Dose: 25 mg Vancomycin HCl 1 gm/ Sodium (Chloride) 250 mls @ 166.7 mls/hr IVPB MWF [facility]; Protocol Last Admin: 06/22/18 14:24 Dose: 166.7 mls/hr Piperacillin Sod/Tazobactam Sod (Zosyn 2.25 Gm Iv Premix) 2.25 gm in 50 mls @ 100 mls/hr IVPB Q8H [facility]; Protocol Last Admin: 06/24/18 08:39 Dose: 100 mls/hr Insulin Aspart (Novolog) 0 unit SC ACHS [facility]; Protocol Last Admin: 06/24/18 12:07 Dose: 2 units Lactulose (Enulose) 20 gm PO [facility] Last Admin: 06/23/18 21:37 Dose: Not Given Mupirocin (Bactroban Ointment) 0 gm TOP DAILY [facility] Last Admin: 06/23/18 10:05 Dose: Not Given Sevelamer Carbonate (Renvela) 2.4 gm PO TIDCC [facility] Last Admin: 06/24/18 12:07 Dose: 2.4 gm - Labs Labs: 06/22/18 11:00 06/22/18 11:00 - Constitutional Appears: Well, Non-toxic - Eye Exam Eye Exam: Normal appearance - ENT Exam ENT Exam: Mucous Membranes Moist - Respiratory Exam Respiratory Exam: Clear to Ausculation Bilateral Assessment and Plan - Assessment and Plan (Free Text) Assessment: 1. infected toe staph options presented multiple time by ID, ball fringe machine operator and my self we have recommended amputation but patient has refused so far. will check back with nurse after dialysis today she still not sure contemplating home vs rehab vs sugery
--- NOTE | 2018-06-24 15:41 | CP.PCM.PN ---
Subjective - Date & Time of Evaluation Date of Evaluation: 06/24/18 Time of Evaluation: 15:39 - Subjective Subjective: on HD tolerating UF via AVF no complaints discharge being reviewed on AB no chest pain no sob appetite fair no fever no abdominal pain decreased urine no rash no arthralgias no headache Objective - Vital Signs/Intake and Output Vital Signs (last 24 hours): Temp Pulse Resp BP Pulse Ox 97.8 F 76 18 129/58 L 98 06/24/18 13:40 06/24/18 13:40 06/24/18 13:40 06/24/18 15:10 06/24/18 13:40 - Medications Medications: Current Medications Acetaminophen (Tylenol 325mg Tab) 650 mg PO Q6 PRN PRN Reason: Pain, moderate (4-7) Amlodipine Besylate (Norvasc) 10 mg PO DAILY [facility] Last Admin: 06/24/18 11:00 Dose: Not Given Apixaban (Eliquis) 2.5 mg PO BID [facility] Last Admin: 06/24/18 10:56 Dose: 2.5 mg Cinacalcet (Sensipar) 60 mg PO BID [facility] Last Admin: 06/24/18 10:56 Dose: 60 mg Clonidine HCl (Catapres) 0.2 mg PO BID [facility] Last Admin: 06/24/18 11:00 Dose: Not Given Epoetin Vinay (Procrit) 3,000 unit IV [facility] Last Admin: 06/22/18 12:12 Dose: 3,000 unit Hydralazine HCl (Apresoline) 25 mg PO Q8 [facility] Last Admin: 06/24/18 06:08 Dose: 25 mg Vancomycin HCl 1 gm/ Sodium (Chloride) 250 mls @ 166.7 mls/hr IVPB [facility] Protocol Last Admin: 06/22/18 14:24 Dose: 166.7 mls/hr Piperacillin Sod/Tazobactam Sod (Zosyn 2.25 Gm Iv Premix) 2.25 gm in 50 mls @ 100 mls/hr IVPB Q8H [facility]; Protocol Last Admin: 06/24/18 08:39 Dose: 100 mls/hr Insulin Aspart (Novolog) 0 unit SC [facility]; Protocol Last Admin: 06/24/18 12:07 Dose: 2 units Lactulose (Enulose) 20 gm PO [facility] Last Admin: 06/23/18 21:37 Dose: Not Given Mupirocin (Bactroban Ointment) 0 gm TOP DAILY [facility] Last Admin: 06/24/18 10:56 Dose: Not Given Sevelamer Carbonate (Renvela) 2.4 gm PO TIDCC [facility] Last Admin: 06/24/18 12:07 Dose: 2.4 gm - Labs Labs: 06/22/18 11:00 06/22/18 11:00 - Constitutional Appears: Non-toxic, Chronically Ill - Head Exam Head Exam: ATRAUMATIC - Eye Exam Eye Exam: EOMI - Neck Exam Neck Exam: Full ROM. absent: Lymphadenopathy - Respiratory Exam Respiratory Exam: Clear to Ausculation Bilateral. absent: Accessory Muscle Use - Cardiovascular Exam Cardiovascular Exam: REGULAR RHYTHM. absent: Rubs - GI/Abdominal Exam GI & Abdominal Exam: Soft. absent: Tenderness - Extremities Exam Extremities Exam: absent: Pedal Edema Additional comments: left leg bandaged - Neurological Exam Neurological Exam: Alert, Oriented x3 - Psychiatric Exam Psychiatric exam: Normal Affect Assessment and Plan - Assessment and Plan (Free Text) Assessment: esrd, on maint HD on AB for osteomylitis stable from Renal discharge planning
[2018-06-24] MEDS: Epoetin Alfa Dialysis 3000 UNIT/ML Inj IV SCH (17:44)
--- NOTE | 2018-06-24 20:52 | CP.PCM.PN ---
Subjective - Date & Time of Evaluation Date of Evaluation: 06/24/18 Time of Evaluation: 20:49 - Subjective Subjective: Podiatry Progress Note - Dr. Shafer 67F seen and evaluated this AM for left 2nd digit ulcer + OM. NAD. No acute events overnight. Daughter present at bedside. Pain in 2nd digit unchanged. Patient now agreeable to be d/c to [facility] for IV antibiotic treatment. Patient understands recommendations are to have left 2nd digit amputated as bone is exposed; still refusing amputation despite extensive discussion on risks and complications. Objective - Vital Signs/Intake and Output Vital Signs (last 24 hours): Temp Pulse Resp BP Pulse Ox 98 F 71 16 138/58 L 99 06/24/18 17:10 06/24/18 17:10 06/24/18 17:10 06/24/18 17:10 06/24/18 17:10 - Medications Medications: Current Medications Acetaminophen (Tylenol 325mg Tab) 650 mg PO Q6 PRN PRN Reason: Pain, moderate (4-7) Amlodipine Besylate (Norvasc) 10 mg PO DAILY [facility] Last Admin: 06/24/18 11:00 Dose: Not Given Apixaban (Eliquis) 2.5 mg PO BID [facility] Last Admin: 06/24/18 18:06 Dose: 2.5 mg Cinacalcet (Sensipar) 60 mg PO BID [facility] Last Admin: 06/24/18 18:06 Dose: 60 mg Clonidine HCl (Catapres) 0.2 mg PO BID [facility] Last Admin: 06/24/18 18:05 Dose: 0.2 mg Epoetin Vinay (Procrit) 3,000 unit IV [facility] [place] Last Admin: 06/24/18 17:44 Dose: 3,000 unit Hydralazine HCl (Apresoline) 25 mg PO Q8 [facility] Last Admin: 06/24/18 06:08 Dose: 25 mg Vancomycin HCl 1 gm/ Sodium (Chloride) 250 mls @ 166.7 mls/hr IVPB [facility] [place]; Protocol Last Admin: 06/24/18 19:04 Dose: 166.7 mls/hr Piperacillin Sod/Tazobactam Sod (Zosyn 2.25 Gm Iv Premix) 2.25 gm in 50 mls @ 100 mls/hr IVPB Q8H [facility]; Protocol Last Admin: 06/24/18 17:49 Dose: 100 mls/hr Insulin Aspart (Novolog) 0 unit SC [facility]; Protocol Last Admin: 06/24/18 17:25 Dose: Not Given Lactulose (Enulose) 20 gm PO HS [facility] Last Admin: 06/23/18 21:37 Dose: Not Given Mupirocin (Bactroban Ointment) 0 gm TOP DAILY [facility] Last Admin: 06/24/18 10:56 Dose: Not Given Sevelamer Carbonate (Renvela) 2.4 gm PO TIDCC [facility] Last Admin: 06/24/18 18:05 Dose: 2.4 gm - Labs Labs: 06/22/18 11:00 06/22/18 11:00 - Constitutional Appears: Non-toxic, No Acute Distress - Extremities Exam Additional comments: Lower extremity focused exam: Vasc: DP/PT pulses palpable 1/4 B/L. Temperature gradient warm to warm on left, warm to cool on R. Mild localized edema noted about the 2nd digit left foot. Pedal hair growth absent Derm: worsening ulceration noted to 2nd digit PIPJ of left foot approx 0.8cm x 0.6cm x 0.3cm with fibrotic and nectoric wound base (+) probe to bone noted. No malodor, no active drainage, no purulence, no fluctuance or suspicion of abscess formation. Dusky changes, development of gangrene noted to 2nd digit extending proximally into forefoot No other open lesions noted. Dystrophic thickened toenails to B/L hallucal toenails noted Neuro: protective sensation grossly intact Ortho: mild hammertoe contractures noted to lesser digits B/L. mild tenderness elicited to palpation of left 2nd digit at ulceration site - Neurological Exam Neurological Exam: Alert, Awake, Oriented x3 - Psychiatric Exam Psychiatric exam: Normal Affect, Normal Mood Assessment and Plan - Assessment and Plan (Free Text) Assessment: 67 y/o diabetic female with worsening left foot 2nd digit ulceration with clinical osteomyelitis, development of left 2nd digit gangrene Plan Patient seen and evaluated Discussed with attending, Dr. Shafer VSS Left foot x-rays - Cortical disruption/irregularity distal phalanx of left 2nd digit consistent with clinically apparent OM Left foot wound culture reveals growth of staph aureus ID recs appreciated - d/c on IV rx for 6-8 weeks Continue local wound care: saline cleanse, bactroban, DSD Discussed with patient conservative vs. surgical options along with associated risks and complications - Recommending amputation however patient refusing Vascular recs appreciated - no acute vascular surgery intervention at this time Stable for d/c per podiatry -Recommend d/c to [facility] for treatment of IV abx and physical therapy -Wound care orders: saline cleanse, apply a thin layer of bactroban, and dress with 4x4 gauze and kerlix - Daily -Activity: WBAT in surgical shoe; will be dispensed prior to d/c -Rx Bactroban ointment given Patient to follow up with Dr. Shafer in office next week
--- NOTE | 2018-06-24 22:20 | CP.PCM.PN ---
Subjective - Date & Time of Evaluation Date of Evaluation: 06/24/18 Time of Evaluation: 09:00 - Subjective Subjective: refusing amputaTION 'AWARE OF RISKS Objective - Vital Signs/Intake and Output Vital Signs (last 24 hours): Temp Pulse Resp BP Pulse Ox 98 F 71 16 138/58 L 99 06/24/18 17:10 06/24/18 17:10 06/24/18 17:10 06/24/18 17:10 06/24/18 17:10 - Medications Medications: Current Medications Acetaminophen (Tylenol 325mg Tab) 650 mg PO Q6 PRN PRN Reason: Pain, moderate (4-7) Amlodipine Besylate (Norvasc) 10 mg PO DAILY [facility] Last Admin: 06/24/18 11:00 Dose: Not Given Apixaban (Eliquis) 2.5 mg PO BID [facility] Last Admin: 06/24/18 18:06 Dose: 2.5 mg Cinacalcet (Sensipar) 60 mg PO BID [facility] Last Admin: 06/24/18 18:06 Dose: 60 mg Clonidine HCl (Catapres) 0.2 mg PO BID [facility] Last Admin: 06/24/18 18:05 Dose: 0.2 mg Epoetin Vinay (Procrit) 3,000 unit [place] [facility] [place] Last Admin: 06/24/18 17:44 Dose: 3,000 unit Hydralazine HCl (Apresoline) 25 mg PO Q8 [facility] Last Admin: 06/24/18 21:59 Dose: 25 mg Vancomycin HCl 1 gm/ Sodium (Chloride) 250 mls @ 166.7 mls/hr IVPB F [facility]; Protocol Last Admin: 06/24/18 19:04 Dose: 166.7 mls/hr Piperacillin Sod/Tazobactam Sod (Zosyn 2.25 Gm Iv Premix) 2.25 gm in 50 mls @ 100 mls/hr IVPB Q8H [facility]; Protocol Last Admin: 06/24/18 17:49 Dose: 100 mls/hr Insulin Aspart (Novolog) 0 unit SC ACHS [facility]; Protocol Last Admin: 06/24/18 21:31 Dose: Not Given Lactulose (Enulose) 20 gm PO HS [facility] Last Admin: 06/24/18 21:59 Dose: 20 gm Mupirocin (Bactroban Ointment) 0 gm TOP DAILY [facility] Last Admin: 06/24/18 10:56 Dose: Not Given Sevelamer Carbonate (Renvela) 2.4 gm PO TIDCC [facility] Last Admin: 06/24/18 18:05 Dose: 2.4 gm - Labs Labs: 06/22/18 11:00 06/22/18 11:00 - Constitutional Appears: Non-toxic, No Acute Distress, Chronically Ill - Head Exam Head Exam: ATRAUMATIC, NORMAL INSPECTION, NORMOCEPHALIC - Eye Exam Eye Exam: EOMI, Normal appearance, PERRL Pupil Exam: NORMAL ACCOMODATION, PERRL - ENT Exam ENT Exam: Mucous Membranes Moist, Normal Exam - Neck Exam Neck Exam: Full ROM, Normal Inspection. absent: Lymphadenopathy - Respiratory Exam Respiratory Exam: Clear to Ausculation Bilateral, NORMAL BREATHING PATTERN - Cardiovascular Exam Cardiovascular Exam: REGULAR RHYTHM, +S1, +S2. absent: Murmur - GI/Abdominal Exam GI & Abdominal Exam: Soft, Normal Bowel Sounds. absent: Tenderness - Rectal Exam Rectal Exam: Deferred - Exam Exam: NORMAL INSPECTION - Extremities Exam Extremities Exam: Full ROM, Pedal Edema. absent: Joint Swelling - Back Exam Back Exam: NORMAL INSPECTION - Neurological Exam Neurological Exam: Alert, Awake, CN II-XII Intact, Normal Gait, Oriented x3 - Psychiatric Exam Psychiatric exam: Normal Affect, Normal Mood - Skin Skin Exam: Dry, Intact, Normal Color, Warm Assessment and Plan (1) ESRD (end stage renal disease) Status: Acute (2) Osteomyelitis of second toe of left foot Status: Acute (3) Secondary hyperparathyroidism Status: Acute - Assessment and Plan (Free Text) Assessment: CONT IV RX AND WOUND CARE POOR PROGNOSIS FOR SALVAGE OF DIGIT RISK FOR SPREAD OF INFECTION TO RIGHT FOOT AND LEG
[2018-06-25 01:10] VITALS: RESP 20
[2018-06-25] MEDS: Piperacill/Tazo 2.25gm in Dex 2.25 GM/50 ML BAG IVPB SCH (07:23)
[2018-06-25] MEDS: (Novolog) Insulin Aspart, Recombinant 100 u/ml 10 ml vial SC SCH ×2 (07:47→11:32)
[2018-06-25] MEDS: Sevelamer Carb 2.4 gm/Packet PO SCH ×2 (09:54→12:54)
--- NOTE | 2018-06-25 12:07 | RAD ---
Date of service: 06/25/2018 HISTORY: Outpatient Dialysis clearance COMPARISON: 04/07/2015 TECHNIQUE: 1 view obtained. FINDINGS: LUNGS: No active pulmonary disease. PLEURA: No significant pleural effusion identified, no pneumothorax apparent. CARDIOVASCULAR: No aortic atherosclerotic calcification present. Normal cardiac size. No pulmonary vascular congestion. OSSEOUS STRUCTURES: No significant abnormalities. VISUALIZED UPPER ABDOMEN: Normal. OTHER FINDINGS: None. IMPRESSION: No active disease.
--- NOTE | 2018-06-25 13:17 | CP.PCM.PN ---
Subjective - Date & Time of Evaluation Date of Evaluation: 06/25/18 Time of Evaluation: 13:06 - Subjective Subjective: Podiatry Progress Note - Dr. Shafer 67 y/o F patient seen and evaluated at the bedside for left 2nd digit ulcer with underlying OM. Patient is AAOX3 and NAD. No acute events overnight. Daughter present at bedside. She states that the pain in 2nd digit unchanged. Patient will move to [facility] today. She denies any overnight F/N/V/C/CP or SOB. Objective - Vital Signs/Intake and Output Vital Signs (last 24 hours): Temp Pulse Resp BP Pulse Ox 98.2 F 80 20 146/71 70 L 06/25/18 07:57 06/25/18 07:57 06/25/18 07:57 06/25/18 07:57 06/25/18 07:57 Intake and Output: 06/25/18 06/25/18 06:59 18:59 Intake Total 550 Balance 550 - Medications Medications: Current Medications Acetaminophen (Tylenol 325mg Tab) 650 mg PO Q6 PRN PRN Reason: Pain, moderate (4-7) Amlodipine Besylate (Norvasc) 10 mg PO DAILY [facility] Last Admin: 06/25/18 09:54 Dose: 10 mg Apixaban (Eliquis) 2.5 mg PO BID [facility] Last Admin: 06/25/18 09:54 Dose: 2.5 mg Cinacalcet (Sensipar) 60 mg PO BID [facility] Last Admin: 06/25/18 09:54 Dose: 60 mg Clonidine HCl (Catapres) 0.2 mg PO BID [facility] Last Admin: 06/25/18 09:54 Dose: 0.2 mg Epoetin Vinay (Procrit) 3,000 unit IV [facility] [place] Last Admin: 06/24/18 17:44 Dose: 3,000 unit Hydralazine HCl (Apresoline) 25 mg PO Q8 [facility] Last Admin: 06/24/18 21:59 Dose: 25 mg Vancomycin HCl 1 gm/ Sodium (Chloride) 250 mls @ 166.7 mls/hr IVPB F [facility]; Protocol Last Admin: 06/24/18 19:04 Dose: 166.7 mls/hr Insulin Aspart (Novolog) 0 unit [facility]; Protocol Last Admin: 06/25/18 11:32 Dose: Not Given Lactulose (Enulose) 20 gm PO HS [facility] Last Admin: 06/24/18 21:59 Dose: 20 gm Mupirocin (Bactroban Ointment) 0 gm TOP DAILY [facility] Last Admin: 06/24/18 10:56 Dose: Not Given Sevelamer Carbonate (Renvela) 2.4 gm PO TIDCC [facility] Last Admin: 06/25/18 09:54 Dose: 2.4 gm - Labs Labs: 06/22/18 11:00 06/22/18 11:00 - Constitutional Appears: Well, Non-toxic, No Acute Distress - Head Exam Head Exam: ATRAUMATIC, NORMOCEPHALIC - Extremities Exam Additional comments: B/L Lower extremity focused exam: Vasc: DP/PT pulses palpable 1/4 B/L. Temperature gradient warm to warm on left, warm to cool on R. Mild localized edema noted about the 2nd digit left foot. Pedal hair growth absent. Neuro: protective sensation grossly intact Derm: worsening ulceration noted to 2nd digit PIPJ of left foot approx 0.8cm x 0.6cm x 0.3cm with fibrotic and nectoric wound base (+) probe to bone noted. No malodor, no active drainage, no purulence, no fluctuance or suspicion of abscess formation. Dusky changes, development of gangrene noted to 2nd digit extending proximally into forefoot No other open lesions noted. Dystrophic thickened toenails to B/L hallucal toenails noted. MSK: mild hammertoe contractures noted to lesser digits B/L. mild tenderness elicited to palpation of left 2nd digit at ulceration site - Neurological Exam Neurological Exam: Alert, Awake, Oriented x3 - Psychiatric Exam Psychiatric exam: Normal Affect, Normal Mood Assessment and Plan - Assessment and Plan (Free Text) Assessment: 67 y/o F patient seen and evaluated at the bedside for left 2nd digit ulcer with underlying OM. Plan: Patient seen and evaluated Discussed with attending, Dr. Shafer Charts, labs and vitals reviewed; Afebrile, No leukocytosis Left foot x-rays - Cortical disruption/irregularity distal phalanx of left 2nd digit consistent with clinically apparent OM Left foot wound culture reveals growth of staph aureus ID recs appreciated - d/c on IV rx for 6-8 weeks Continue local wound care: saline cleanse, bactroban, DSD Discussed with patient conservative vs. surgical options along with associated risks and complications Recommending amputation however patient refusing Vascular recs appreciated - no acute vascular surgery intervention at this time Stable for d/c per podiatry -Recommend d/c to [facility] for treatment of IV abx and physical therapy -Wound care orders: saline cleanse, apply a thin layer of bactroban, and dress with 4x4 gauze and kerlix - Daily -Activity: WBAT in surgical shoe; will be dispensed prior to d/c -Rx Bactroban ointment given Patient will be discharged today to [facility]. Patient to follow up with Dr. Shafer in office next week
[2018-06-25 16:20] VITALS: BP 129/79; PULSE 67; TEMP 97.7; O2SAT 100
== END 2018-06-25 17:28 | DRG 638 ==
LOC: C.ER 16:07 → C.9E 18:58 → C.5S 19:51
PROVIDERS: ADMIT Internal Medicine; ATTEND Internal Medicine
PROC: 5A1D70Z Performance of Urinary Filtration, Intermittent, Less than 6 Hours Per Day (ICD-10-PCS; principal; 2018-06-19)
PROC: 5A1D70Z Performance of Urinary Filtration, Intermittent, Less than 6 Hours Per Day (ICD-10-PCS; 2018-06-22)
PROC: 5A1D70Z Performance of Urinary Filtration, Intermittent, Less than 6 Hours Per Day (ICD-10-PCS; 2018-06-24)
DX: E11.69 Type 2 diabetes mellitus with other specified complication (principal); M86.672 Other chronic osteomyelitis, left ankle and foot; I12.0 Hypertensive chronic kidney disease with stage 5 chronic kidney disease or end stage renal disease; T82.9XXA Unspecified complication of cardiac and vascular prosthetic device, implant and graft, initial encounter; Z79.4 Long term (current) use of insulin; K59.00 Constipation, unspecified; N25.81 Secondary hyperparathyroidism of renal origin; N18.6 End stage renal disease; Z99.2 Dependence on renal dialysis; D64.9 Anemia, unspecified; E11.22 Type 2 diabetes mellitus with diabetic chronic kidney disease; E11.621 Type 2 diabetes mellitus with foot ulcer; L97.529 Non-pressure chronic ulcer of other part of left foot with unspecified severity; B95.8 Unspecified staphylococcus as the cause of diseases classified elsewhere

== ENCOUNTER 2018-07-09 20:20 | Inpatient (IN) | payer MEDICARE, BC ==
[2018-07-09 21:28] LABS: BASO # 0.1 K/uL (0.0-0.2); BASO % 0.9 % (0.0-2.0); EOS # 0.1 K/uL (0.0-0.7); EOS % 1.5 % (0.0-4.0); HEMOGLOBIN 9.3 g/dL (11.0-16.0); LYMPH # 1.4 K/uL (1.0-4.3); LYMPH % 18.3 % (20.0-40.0); MEAN CELL VOLUME 89.3 fL (81.0-99.0); MEAN CORPUSCULAR HEMOGLOBIN 30.1 pg (27.0-31.0); MEAN CORPUSCULAR HGB CONC 33.7 g/dL (33.0-37.0); MEAN PLATELET VOLUME 7.9 fL (7.2-11.7); MONO # 0.6 K/uL (0.0-0.8); MONO % 8.1 % (0.0-10.0); NEUT # 5.6 K/uL (1.8-7.0); NEUT % 71.2 % (50.0-75.0); NRBC % 0.1 % (0.0-2.0); RBC 3.1 Mil/uL (3.80-5.20); RED CELL DISTRIBUTION WIDTH 19.6 % (11.5-14.5); WHITE BLOOD COUNT 7.9 K/uL (4.8-10.8)
--- NOTE | 2018-07-09 21:29 | C.PDOC ---
History Of Present Illness 67 year old female who presents to the ED after being referred from [facility] for evaluation of abnormal lumbosacral plain films and questionable findings of L2-L3 suspicion of osteomyelitis. Patient has a hx of chronic lower back pain that is usually band like. She reports that the pain has recently gotten worse. Patient was treated earlier this month for osteomyelitis of the left second toe. Denies any pain meds, trauma, falls. Time Seen by Provider: 07/09/18 20:46 Chief Complaint (Nursing): Back Pain History Per: Patient History/Exam Limitations: no limitations Quality Of Discomfort: "Pain" Recent travel outside of the [place]: No Additional History Per: Patient Past Medical History Reviewed: Historical Data, Nursing Documentation, Vital Signs Primary Care Provider: Fiona Brand - Medical History PMH: Anemia, Diabetes, HTN, Peripheral Edema, End Stage Renal Disease, Chronic Kidney Disease Surgical History: Endoscopy - [facility] (06/18/18) ANEURYSM REPAIR NEC (01/16/14) HEMODIALYSIS (01/16/14) PACKED CELL TRANSFUSION (01/16/14) VASC PROC REVISION NEC (01/16/14) VENOUS CATHETERIZATION FOR RENAL DIALYSIS (01/16/14) Family History: States: Unknown Family Hx - Social History Hx Tobacco Use: No Hx Alcohol Use: No Hx Substance Use: No - Immunization History Hx Influenza Vaccination: (unsure) Hx Pneumococcal Vaccination: (unsure) Review Of Systems Constitutional: Negative for: Fever, Chills Cardiovascular: Negative for: Chest Pain Respiratory: Negative for: Shortness of Breath Gastrointestinal: Negative for: Nausea, Vomiting, Abdominal Pain, Diarrhea Musculoskeletal: Positive for: Back Pain (chronic lower back) Physical Exam - Physical Exam Appears: Non-toxic, No Acute Distress, Other (morbidly obese black female ) Skin: Warm, Dry, No Rash Head: Atraumatic, Normacephalic Eye(s): right: Other (chronic right eye deviation ) Oral Mucosa: Moist Neck: Normal ROM, Supple Chest: Symmetrical, No Deformity Cardiovascular: Rhythm Regular, No Murmur Respiratory: Normal Breath Sounds, No Rales, No Rhonchi, No Wheezing Gastrointestinal/Abdominal: Soft, No Tenderness Back: Other (tender to palpation of L2-L3 midline ) Extremity: Other (lower extremities obese. surgical scar on left second toe ) Neurological/Psych: Oriented x3, Normal Speech, Normal Cognition ED Course And Treatment - Laboratory Results Result Diagrams: 07/09/18 21:21 07/09/18 21:53 Lab Interpretation: Normal ECG: Interpreted By Me ECG Rhythm: Sinus Rhythm ECG Interpretation: Normal Rate From EC O2 Sat by Pulse Oximetry: 100 Pulse Ox Interpretation: Normal - Radiology CXR: Interpreted by Me CXR Interpretation: Yes: No Acute Disease - CT Scan/US CT LS spine Other Rad Studies (CT/US): Read By Radiologist, Radiology Report Reviewed CT/US Interpretation: EXAM: CT Lumbar Spine without IV contrast. 1. Evidence of suspected discitis at L2-3 as described above. 2. Moderate-marked and sever e central spinal canal stenosis seen at L3-4 and L4-5 respectively. 3. Hypertrophic bilateral apophyseal facet arthropathy at all levels. 4. A 1.3 cm calculus is seen in the mid right renal pole. Reevaluation Time: 00:56 Reassessment Condition: Unchanged - Physician Consult Information Outcome Of Conversation: 0030: d/w Dr. Parmar- NSGY- will consult. 0040: d/w Dr. Holguin- ok to Med/Surg Obs Medical Decision Making Medical Decision Making: Plan: Xray Lumbar EKG Labs CXR UA Ultram 50mg PO chronic LBP x months/years now with abn findings on plans LS spine films and diskitis with severe spinal stenosis noted on CT LS spine no fevers nor leukocytosis, may be partially treated by Vanco x 6 weeks for L toe infection now in week 2/3 NSGY EVal and consider MRI in AM No leg weakness/parasthesias but pt walks hunched over for pain relief. ESRD on HD HD M/W/F Chronic L toe infection/osteo Vanco IV now week 3/6 Dr. Gilliland following Disposition Doctor Will See Patient In The: Hospital Counseled Patient/Family Regarding: Studies Performed, Diagnosis - Disposition Disposition: HOSPITALIZED Disposition Time: 00:57 Condition: GOOD Forms: [facility] (Thai) - Clinical Impression Clinical Impression: Osteomyelitis of second toe of left foot, Lumbar discitis, Spinal stenosis - Scribe Statement The provider has reviewed the documentation as recorded by the Maryibjacob Alexander All medical record entries made by the Scribe were at my direction and personally dictated by me. I have reviewed the chart and agree that the record accurately reflects my personal performance of the history, physical exam, medical decision making, and the department course for this patient. I have also personally directed, reviewed, and agree with the discharge instructions and disposition.
[2018-07-09 22:16] LABS: CALCIUM 10.8 mg/dl (8.6-10.4)
[2018-07-09 22:26] LABS: INR 1.1; PROTHROMBIN TIME 12.5 SECONDS (9.7-12.2)
[2018-07-09 22:45] LABS: PARTIAL THROMBOPLASTIN TIME 37.1 SECONDS (21-34)
[2018-07-10] MEDS ORDERED: HYDRALAZINE HCL 25 MG PO SCH (01:15)
--- NOTE | 2018-07-10 07:01 | RAD ---
Date of service: 07/09/2018 HISTORY: SOB COMPARISON: Chest x-ray 06/25/2018 TECHNIQUE: Chest one view . FINDINGS: LUNGS: No focal consolidation is seen. Mild left basilar subsegmental atelectasis. PLEURA: No pleural effusion is identified. CARDIOVASCULAR: Heart size is within normal limits. No atherosclerotic calcification present. OSSEOUS STRUCTURES: Mild hypertrophic degenerative change noted of the left acromioclavicular joint. VISUALIZED UPPER ABDOMEN: Unremarkable. OTHER FINDINGS: None. IMPRESSION: Mild left basilar subsegmental atelectasis.
--- NOTE | 2018-07-10 08:15 | CP.PCM.PN ---
Subjective - Date & Time of Evaluation Date of Evaluation: 07/10/18 Time of Evaluation: 08:11 - Subjective Subjective: CAlled by ER about this 67 year old female hx of CRF, Dm, who presents to the ED after being referred from [facility] for evaluation of abnormal lumbosacral plain films and questionable findings of L2-L3 suspicion of osteomyelitis. Patient has a hx of chronic lower back pain that is usually band like. She reports that the pain has recently gotten worse. Patient was treated earlier this month for osteomyelitis of the left second toe. Denies any pain meds, trauma, falls. She is currently on Vancomycin for the osteo of the toe. CT shows L2/3 discitis mostly anterior no evidence of edpidural abscess She also has spinal stenosis worse at L3-L4 At this time she needs MRI of L-spine Will order fan brace Will reeval after MRI If C&S is wanted contact interventional radiology but as she has been on antibiotics the chance of obtaining positive cultures are negligible. Objective - Vital Signs/Intake and Output Vital Signs (last 24 hours): Temp Pulse Resp BP Pulse Ox 98.3 F 75 20 133/56 L 97 07/10/18 07:34 07/10/18 07:34 07/10/18 07:34 07/10/18 07:34 07/10/18 07:34 - Medications Medications: Current Medications Acetaminophen (Tylenol 325mg Tab) 650 mg PO Q4H PRN PRN Reason: Fever >100.4 F Cinacalcet (Sensipar) 30 mg PO DAILY [facility] Clonidine HCl (Catapres) 0.2 mg PO Q12H [facility] Docusate Sodium (Colace) 100 mg PO HS [facility] Home Med (Amlodipine Besylate) 10 mg PO DAILY [facility] Home [facility] (Prosource Tc Protein Liquid) 30 ml PO TID [facility] (Vitamin A And D Ointment) 1 applic TD DAILY [facility] Hydralazine HCl (Apresoline) 25 mg PO Q12 [facility] Insulin Human Regular (Novolin R) 0 unit SC ACHS [facility]; Protocol Lactulose (Enulose) 20 gm PO Q24H PRN PRN Reason: Constipation Sevelamer Carbonate (Renvela) 800 mg PO TID [facility] Tramadol HCl (Ultram) 50 mg PO Q6 PRN PRN Reason: Pain, moderate (4-7) Vitamin B Complex/Vit C/Folic Acid (Nephro-Jessy) 1 tab PO MWF [facility] - Labs Labs: 07/09/18 21:21 07/09/18 21:53 PT 12.5 SECONDS (9.7-12.2) H 07/09/18 21:53 INR 1.1 07/09/18 21:53 APTT 37.1 SECONDS (21-34) H 07/09/18 21:53
[2018-07-10] MEDS: (Novolin R) Insulin Human Regular 100 units/ml vial SC SCH ×4 (08:26→22:05)
--- NOTE | 2018-07-10 09:25 | CP.PCM.HP ---
History of Present Illness - History of Present Illness History of Present Illness: BACK PAIN HPI: pT IS A 67 Year old female who was in rehab for osteo of toe. Pt was doing well but states was asked about her back and she complained she has had low back pain for some time, but perhaps a little worse lately. Pt states xray was done and concerned about infection was raises so she was sent to ER. PT today tells m e she does not think her pain has been worse after all. Past Patient History - Past Medical History & Family History Past Medical History?: Yes - Past Social History Smoking Status: Never Smoked - CARDIAC Hx Hypertension: Yes Hx Peripheral Edema: Yes - PULMONARY Hx Respiratory Disorders: No - NEUROLOGICAL Hx Neurological Disorder: No - HEENT Hx HEENT Problems: Yes Hx Cataracts: Yes - RENAL Hx Chronic Kidney Disease: Yes Date of Last Dialysis Treatment: 07/08/18 - ENDOCRINE/METABOLIC Hx Diabetes Mellitus Type 2: Yes - HEMATOLOGICAL/ONCOLOGICAL Hx Anemia: Yes - INTEGUMENTARY Hx Dermatological Problems: No Other/Comment: WOUND TO LEFT FOOT. 2ND DIGIT - MUSCULOSKELETAL/RHEUMATOLOGICAL Hx Musculoskeletal Disorders: No Hx Falls: No - GASTROINTESTINAL Hx Gastrointestinal Disorders: Yes (constipation) - GENITOURINARY/GYNECOLOGICAL Hx Genitourinary Disorders: No - PSYCHIATRIC Hx Substance Use: No - SURGICAL HISTORY Hx Surgeries: Yes Hx Cataract Extraction: Yes (right eye) Hx Eye Surgery: Yes (detached retina right eye) Hx Vascular Surgery: Yes (Left arm graft, and right arm fistula.) Hx Vascular Access Device: Yes (Left arm graft, and right arm fistula.) - ANESTHESIA Hx Anesthesia: Yes Hx Anesthesia Reactions: No Hx Malignant Hyperthermia: No Meds Allergies/Adverse Reactions: Allergies Allergy/AdvReac Type Severity Reaction Status Date / Time No Known Allergies Allergy Verified 01/16/14 10:58 Results - Vital Signs Recent Vital Signs: Last Vital Signs Temp 98.3 F 07/10/18 07:34 Pulse 75 07/10/18 07:34 Resp 20 07/10/18 07:34 BP 133/56 L 07/10/18 07:34 Pulse Ox 97 07/10/18 07:34 - Labs Result Diagrams: 07/09/18 21:21 07/09/18 21:53 Labs: Laboratory Results - last 24 hr 07/09/18 07/09/18 07/09/18 21:21 21:53 21:53 WBC 7.9 RBC 3.10 L Hgb 9.3 L Hct 27.7 L MCV 89.3 MCH 30.1 MCHC 33.7 RDW 19.6 H Plt Count 241 MPV 7.9 Neut % (Auto) 71.2 Lymph % (Auto) 18.3 L [place] % (Auto) 8.1 Eos % (Auto) 1.5 Baso % (Auto) 0.9 Neut # (Auto) 5.6 Lymph # (Auto) 1.4 [place] # (Auto) 0.6 Eos # (Auto) 0.1 Baso # (Auto) 0.1 PT 12.5 H INR 1.1 APTT 37.1 H Sodium 134 Potassium 4.3 Chloride 90 L Carbon Dioxide 30 Anion Gap 18 BUN 47 H Creatinine 6.4 H Est GFR ( Amer) 8 Est GFR (Non-Af Amer) 7 POC Glucose (mg/dL) Random Glucose 108 H Calcium 10.8 H Total Bilirubin 0.5 AST 27 ALT 21 Alkaline Phosphatase 269 H D NT-Pro-B Natriuret Pep 3000 H Total Protein 7.9 Albumin 4.0 Globulin 3.9 Albumin/Globulin Ratio 1.0 07/10/18 07:14 WBC RBC Hgb Hct MCV MCH MCHC RDW Plt Count MPV Neut % (Auto) Lymph % (Auto) [place] % (Auto) Eos % (Auto) Baso % (Auto) Neut # (Auto) Lymph # (Auto) [place] # (Auto) Eos # (Auto) Baso # (Auto) PT INR APTT Sodium Potassium Chloride Carbon Dioxide Anion Gap BUN Creatinine Est GFR ( Amer) Est GFR (Non-Af Amer) POC Glucose (mg/dL) 87 Random Glucose Calcium Total Bilirubin AST ALT Alkaline Phosphatase NT-Pro-B Natriuret Pep Total Protein Albumin Globulin Albumin/Globulin Ratio
[2018-07-10] MEDS ORDERED: VITAMIN A AND D TD SCH (10:00)
--- NOTE | 2018-07-10 10:58 | CT ---
Date of service: 07/09/2018 PROCEDURE: CT Lumbar Spine without contrast HISTORY: ? L2L3 osteo on plain films COMPARISON: None available. TECHNIQUE: Axial computed tomography images were obtained of the lumbar spine without the use of intravenous contrast. Coronal and sagittal reformatted images were created and reviewed. Radiation dose: Total exam DLP = 1647.03 mGy-cm. This CT exam was performed using one or more of the following dose reduction techniques: Automated exposure control, adjustment of the mA and/or kV according to patient size, and/or use of iterative reconstruction technique. FINDINGS: VERTEBRAE: Unremarkable. No fracture. Normal alignment. DISCS/SPINAL CANAL/NEURAL FORAMINA: L1-2: Facet arthropathy. L2-3: No significant foraminal stenosis. Moderate central canal stenosis with bilateral hypertrophic facet arthropathy and marked endplate sclerosis suspicious for discitis with severe erosive changes and anterior-inferior endplate changes. L3-4: Moderate to severe central canal stenosis with severe bilateral facet arthropathy. L4-5: Severe central canal stenosis with bilateral facet arthropathy. L5-S1: Bilateral facet arthropathy. PARASPINAL SOFT TISSUES: Unremarkable. OTHER FINDINGS: None. IMPRESSION: L2-3: No significant foraminal stenosis. Moderate central canal stenosis with bilateral hypertrophic facet arthropathy and marked endplate sclerosis suspicious for discitis with severe erosive changes and anterior-inferior endplate changes.
[2018-07-10] MEDS: Multivitamin Vitamin B Complex (Nephro-Vite) Tab PO SCH (11:17)
[2018-07-10] MEDS: [UNRECOGNIZED DRUG - OTHER] PO SCH ×2 (11:21→13:35)
--- NOTE | 2018-07-10 13:42 | MRI ---
Date of service: 07/10/2018 PROCEDURE: MR LUMBAR SPINE WITHOUT CONTRAST HISTORY: Discitis L2/3 NO LEANA GIVEN PT'S GFR IS 7 COMPARISON: Comparison made with CT scan lumbar spine 07/09/2018. TECHNIQUE: Multiecho multiplanar sequences were performed through the lumbar spine without the use of intravenous contrast. FINDINGS: Redemonstrated are destructive endplate changes involving the L2 and L3 vertebral endplates with edema in the adjacent marrow of the L2 and to a lesser degree L3 segments with increased T2 signal in the disc space itself... Findings are consistent with a discitis osteomyelitis.. There appears to be paraspinal phlegmonous changes laterally adjacent to the disc space and the involve portions of the L2 and L3 segments. No evidence of significant epidural extension at this time.. The remaining disc spaces are otherwise unremarkable without evidence of discitis osteomyelitis at any other disc space level. Additionally, there is minor broad-based bulge of the posterior annulus that results in flattening of the ventral surface of the thecal sac. The facet joints are quite hypertrophic at this level with resultant bilateral lateral recess and mild central canal stenosis. The exit foramina are stenotic bilaterally. Multilevel degenerative spondylosis. T12-L1: No disc herniation, spinal canal stenosis or neural foraminal narrowing. L1-2: No disc herniation, spinal canal stenosis or neural foraminal narrowing. L2-3: As above. L3-4: There is disc desiccation and disc space narrowing. Small broad-based bulge of the posterior annulus extends into the proximal inferior margins of both exit foramina. Facets are hypertrophic and flavum are also buckled. Changes result in moderate to severely significant bilateral lateral recess and central canal stenosis. Exit foramina are marginal to adequate. L4-5: There is disc desiccation and minor posterior disc space narrowing. Relatively small central and bilateral disc bulge ridge complex flattens the ventral surface of the thecal sac. Facets also significantly hypertrophic right greater than left. Changes result in severe bilateral lateral recess and central canal stenosis. The disc ridge complex also extends into the proximal inferior margins of both exit foramina more so on the left side. Bilateral foraminal stenosis left greater than right. L5-S1: There is disc desiccation and minor posterior disc space narrowing. Small central and bilateral bulge of the posterior annulus is present. Facets are hypertrophic. Central canal and exit foramina adequate. OTHER FINDINGS: None. IMPRESSION: There are a destructive changes seen at the L2 and L3 endplates with edema in the adjoining marrow of each of these segments. Collectively findings are consistent with discitis osteomyelitis. There are apparent paraspinal phlegmonous changes however no significant epidural extension. The Multilevel degenerative spondylosis with varying degrees of mild to significant bilateral lateral recess as well as central canal stenosis. Variable bilateral foraminal stenotic changes are seen as well as detailed above.
--- NOTE | 2018-07-10 14:08 | CP.PCM.CON ---
History of Present Illness - History of Present Illness History of Present Illness: 67 year old female who presents to the ED after being referred from [facility] for evaluation of abnormal lumbosacral plain films and questionable findings of L2-L3 suspicion of osteomyelitis. Patient has a hx of chronic lower back pain that is usually band like. She reports that the pain has recently go tten worse. Patient was treated earlier this month for osteomyelitis of the left second toe. Denies any pain meds, trauma, falls. MRI spine shows osteomyelitis Past Medical History Reviewed: Historical Data, Nursing Documentation, Vital Signs Primary Care Provider: Fiona Brand - Medical History PMH: Anemia, Diabetes, HTN, Peripheral Edema, End Stage Renal Disease, Chronic Kidney Disease Surgical History: Endoscopy - [facility] Procedures (06/18/18) ANEURYSM REPAIR NEC (01/16/14) HEMODIALYSIS (01/16/14) PACKED CELL TRANSFUSION (01/16/14) VASC PROC REVISION NEC (01/16/14) VENOUS CATHETERIZATION FOR RENAL DIALYSIS (01/16/14) Family History: States: Unknown Family Hx, no CKD - Social History Hx Tobacco Use: No Hx Alcohol Use: No Hx Substance Use: No - Immunization History Hx Influenza Vaccination: (unsure) Hx Pneumococcal Vaccination: (unsure) Review Of Systems Constitutional: Negative for: Fever, Chills Cardiovascular: Negative for: Chest Pain Respiratory: Negative for: Shortness of Breath Gastrointestinal: Negative for: Nausea, Vomiting, Abdominal Pain, Diarrhea Musculoskeletal: Positive for: Back Pain (chronic lower back) Review of Systems - Constitutional Constitutional: Fatigue, Weakness - EENT Eyes: absent: As Per HPI, Blind Spots, Blurred Vision, Change in Vision, Decreased Night Vision, Diplopia, Discharge, Dry Eye, Exophthalmos, Floaters, Irritation, Itchy Eyes, Loss of Peripheral Vision, Pain, Photophobia, Requires Corrective Lenses, Sees Flashes, Spots in Vision, Tunnel Vision, Other Visual Disturbances, Loss of Vision, Other Ears: absent: As Per HPI, Decreased Hearing, Ear Discharge, Ear Pain, Tinnitus, Abnormal Hearing, Disequilibrium, Dizziness, Other Nose/Mouth/Throat: absent: As Per HPI, Epistaxis, Nasal Congestion, Nasal Discharge, Nasal Obstruction, Nasal Trauma, Nose Pain, Post Nasal Drip, Sinus Pain, Sinus Pressure, Bleeding Gums, Change in Voice, Dental Pain, Dry Mouth, Dysphagia, Halitosis, Hoarsness, Lip Swelling, Mouth Lesions, Mouth Pain, Odynophagia, Sore Throat, Throat Swelling, Tongue Swelling, Facial Pain, Neck Pain, Neck Mass, Other - Cardiovascular Cardiovascular: Dyspnea on Exertion - Respiratory Respiratory: Cough, Dyspnea on Exertion - Gastrointestinal Gastrointestinal: Early Satiety, Nausea - Genitourinary Genitourinary: As Per HPI - Musculoskeletal Musculoskeletal: Muscle Weakness, Myalgias - Neurological Neurological: Sensory Deficit, Weakness Past Patient History - Past Medical History & Family History Past Medical History?: Yes Past Family History: Reviewed and not pertinent - Past Social History Smoking Status: Never Smoked Chewing Tobacco Use: No Cigar Use: No Alcohol: None Drugs: Denies Home Situation {Lives}: [facility] - CARDIAC Hx Hypertension: Yes Hx Peripheral Edema: Yes - PULMONARY Hx Respiratory Disorders: No - NEUROLOGICAL Hx Neurological Disorder: No - HEENT Hx HEENT Problems: Yes Hx Cataracts: Yes - RENAL Hx Chronic Kidney Disease: Yes Date of Last Dialysis Treatment: 07/08/18 - ENDOCRINE/METABOLIC Hx Diabetes Mellitus Type 2: Yes - HEMATOLOGICAL/ONCOLOGICAL Hx Anemia: Yes - INTEGUMENTARY Hx Dermatological Problems: No Other/Comment: WOUND TO LEFT FOOT. 2ND DIGIT - MUSCULOSKELETAL/RHEUMATOLOGICAL Hx Musculoskeletal Disorders: No Hx Falls: No - GASTROINTESTINAL Hx Gastrointestinal Disorders: Yes (constipation) - GENITOURINARY/GYNECOLOGICAL Hx Genitourinary Disorders: No - PSYCHIATRIC Hx Substance Use: No - SURGICAL HISTORY Hx Surgeries: Yes Hx Cataract Extraction: Yes (right eye) Hx Eye Surgery: Yes (detached retina right eye) Hx Vascular Surgery: Yes (Left arm graft, and right arm fistula.) Hx Vascular Access Device: Yes (Left arm graft, and right arm fistula.) - ANESTHESIA Hx Anesthesia: Yes Hx Anesthesia Reactions: No Hx Malignant Hyperthermia: No Meds Allergies/Adverse Reactions: Allergies Allergy/AdvReac Type Severity Reaction Status Date / Time No Known Allergies Allergy Verified 01/16/14 10:58 - Medications Medications: Current Medications Acetaminophen (Tylenol 325mg Tab) 650 mg PO Q4H PRN PRN Reason: Fever >100.4 F Amlodipine Besylate (Norvasc) 10 mg PO DAILY [facility] Last Admin: 07/10/18 13:34 Dose: Not Given Cinacalcet (Sensipar) 30 mg PO DAILY [facility] Last Admin: 07/10/18 11:17 Dose: 30 mg Clonidine HCl (Catapres) 0.2 mg PO Q12H [facility] Last Admin: 07/10/18 13:34 Dose: Not Given Docusate Sodium (Colace) 100 mg PO [facility] Heparin Sodium (Porcine) (Heparin) 5,000 units SC Q12 [facility] Last Admin: 07/10/18 11:25 Dose: Not Given Home Med (Prosource Tc Protein Liquid) 30 ml PO TID [facility] Last Admin: 07/10/18 13:35 Dose: Not Given Home Med (Vitamin A And D Ointment) 1 applic TD DAILY [facility] Last Admin: 07/10/18 11:21 Dose: Not Given Hydralazine HCl (Apresoline) 25 mg PO Q12 [facility] Last Admin: 07/10/18 13:33 Dose: Not Given Insulin Human Regular (Novolin R) 0 unit SC [facility]; Protocol Last Admin: 07/10/18 13:34 Dose: Not Given Lactulose (Enulose) 20 gm PO Q24H PRN PRN Reason: Constipation Sevelamer Carbonate (Renvela) 2,400 mg PO TIDCC [facility] Last Admin: 07/10/18 11:30 Dose: 2,400 mg Tramadol HCl (Ultram) 50 mg PO Q6 PRN PRN Reason: Pain, moderate (4-7) Vitamin B Complex/Vit C/Folic Acid (Nephro-Jessy) 1 tab PO MWF [facility] Last Admin: 07/10/18 11:17 Dose: 1 tab Physical Exam - Constitutional Appears: No Acute Distress, Chronically Ill - Head Exam Head Exam: ATRAUMATIC, NORMAL INSPECTION - Eye Exam Eye Exam: EOMI, Normal appearance - Respiratory Exam Respiratory Exam: Clear to Auscultation Bilateral, NORMAL BREATHING PATTERN - Cardiovascular Exam Cardiovascular Exam: REGULAR RHYTHM, +S1 - GI/Abdominal Exam GI & Abdominal Exam: Soft. absent: Tenderness - Extremities Exam Extremities exam: Positive for: normal inspection. Negative for: tenderness - Skin Skin Exam: Dry, Warm Results - Vital Signs Recent Vital Signs: Last Vital Signs Temp 98.3 F 07/10/18 07:34 Pulse 75 07/10/18 07:34 Resp 20 07/10/18 07:34 BP 133/56 L 07/10/18 07:34 Pulse Ox 97 07/10/18 07:34 - Labs Result Diagrams: 07/09/18 21:21 07/09/18 21:53 Labs: Laboratory Results - last 24 hr 07/09/18 07/09/18 07/09/18 21:21 21:53 21:53 WBC 7.9 RBC 3.10 L Hgb 9.3 L Hct 27.7 L MCV 89.3 MCH 30.1 MCHC 33.7 RDW 19.6 H Plt Count 241 MPV 7.9 Neut % (Auto) 71.2 Lymph % (Auto) 18.3 L [place] % (Auto) 8.1 Eos % (Auto) 1.5 Baso % (Auto) 0.9 Neut # (Auto) 5.6 Lymph # (Auto) 1.4 [place] # (Auto) 0.6 Eos # (Auto) 0.1 Baso # (Auto) 0.1 PT 12.5 H INR 1.1 APTT 37.1 H Sodium 134 Potassium 4.3 Chloride 90 L Carbon Dioxide 30 Anion Gap 18 BUN 47 H Creatinine 6.4 H Est GFR ( Amer) 8 Est GFR (Non-Af Amer) 7 POC Glucose (mg/dL) Random Glucose 108 H Calcium 10.8 H Total Bilirubin 0.5 AST 27 ALT 21 Alkaline Phosphatase 269 H D NT-Pro-B Natriuret Pep 3000 H Total Protein 7.9 Albumin 4.0 Globulin 3.9 Albumin/Globulin Ratio 1.0 07/10/18 07/10/18 07:14 11:17 WBC RBC Hgb Hct MCV MCH MCHC RDW Plt Count MPV Neut % (Auto) Lymph % (Auto) [place] % (Auto) Eos % (Auto) Baso % (Auto) Neut # (Auto) Lymph # (Auto) [place] # (Auto) Eos # (Auto) Baso # (Auto) PT INR APTT Sodium Potassium Chloride Carbon Dioxide Anion Gap BUN Creatinine Est GFR ( Amer) Est GFR (Non-Af Amer) POC Glucose (mg/dL) 87 108 Random Glucose Calcium Total Bilirubin AST ALT Alkaline Phosphatase NT-Pro-B Natriuret Pep Total Protein Albumin Globulin Albumin/Globulin Ratio Assessment & Plan (1) Osteomyelitis of lumbar spine Status: Acute (2) Lumbar discitis Status: Acute (3) ESRD (end stage renal disease) Status: Acute (4) Secondary hyperparathyroidism Status: Acute - Assessment and Plan (Free Text) Plan: dialysis MWF IV ABs neurosurgery eval ID eval
--- NOTE | 2018-07-10 18:15 | CP.PCM.CON ---
History of Present Illness - History of Present Illness History of Present Illness: 67F with complex medical Hx includin T2DM PVD and ESRD on HD was admitted earlier this month with OM left 2nd digit which started as a scab on the dorsum of the toe from mal-fitting footware approx 4 mos ago Did not respond to out pt rx and developed milagros drainage with pain Cultures were + for MSSA but she refused amputation and later went to [facility] for horse trekking guide IV Rx where she developed back pain and is now admitted with discitis L2L3 lumbar spine PMH: ESRD on HD (MWF), DM, peripheral edema, chronic LBP PSH: RUE AVF, LUE AV shunt (non functional), cataract surgery & Lasix surgery All:NKDA SH: Denies current or hx of ETOH, tobacco or illicit drug use FH: Non contributory Review of Systems - Constitutional Constitutional: As Per HPI. absent: Chills, Fever - EENT Eyes: absent: As Per HPI, Blind Spots, Blurred Vision, Change in Vision, Decreased Night Vision, Diplopia, Discharge, Dry Eye, Exophthalmos, Floaters, Irritation, Itchy Eyes, Loss of Peripheral Vision, Pain, Photophobia, Requires Corrective Lenses, Sees Flashes, Spots in Vision, Tunnel Vision, Other Visual Disturbances, Loss of Vision, Other Ears: absent: As Per HPI, Decreased Hearing, Ear Discharge, Ear Pain, Tinnitus, Abnormal Hearing, Disequilibrium, Dizziness, Other Nose/Mouth/Throat: absent: As Per HPI, Epistaxis, Nasal Congestion, Nasal Discharge, Nasal Obstruction, Nasal Trauma, Nose Pain, Post Nasal Drip, Sinus Pain, Sinus Pressure, Bleeding Gums, Change in Voice, Dental Pain, Dry Mouth, Dysphagia, Halitosis, Hoarsness, Lip Swelling, Mouth Lesions, Mouth Pain, Odynophagia, Sore Throat, Throat Swelling, Tongue Swelling, Facial Pain, Neck Pain, Neck Mass, Other - Breasts Breasts: absent: As Per HPI, Change in Shape, Mass, Pain, Nipple Discharge, Nipple Inversion, Skin Changes, Swelling, Other - Cardiovascular Cardiovascular: As Per HPI - Respiratory Respiratory: absent: As Per HPI, Cough, Dyspnea, Hemoptysis, Dyspnea on Exertion, Wheezing, Snoring, Stridor, Pain on Inspiration, Chest Congestion, Excessive Mucous Production, Change in Mucous Color, Pain with Coughing, Other - Gastrointestinal Gastrointestinal: absent: As Per HPI, Abdominal Pain, Belching, Bloating, Change in Bowel Habits, Change in Stool Character, Coffee Ground Emesis, Constipation, Cramping, Diarrhea, Dyspepsia, Dysphagia, Early Satiety, Excessive Flatus, Fecal Incontinence, Heartburn, Hematemesis, Hematochezia, Loose Stools, Melena, Nausea, Odynophagia, Temesmus, Vomiting, Other - Genitourinary Genitourinary: absent: As Per HPI, Change in Urinary Stream, Difficulty Urinating, Dysuria, Flank Pain, Hematuria, Pyuria, Nocturia, Urinary Incontinence, Urinary Frequency, Urinary Hesitance, Urinary Urgency, Voiding Freq/Small Amts, Freq UTI, Hx Renal/Bladder Calculi, Hx /Renal Surgery, Pool dder Distension, Other - Reproductive: Female Reproductive:Female: absent: As Per HPI, Amenorrhea, Amenorrhea/ Control, Currently Menstual, Cycle <21 Days, Cycle >35 Days, Cycle Variable, Menses 1-7 Days, Menses >/= 8 Days, Menses Variable, Cycle > 4 Weeks Between, No Menses for 6 Months, Heavy Menses, Light Menses, Normal Menses, Spotting Between Cycles, S/P Hysterectomy, Menopausal, Post Menopausal, Premenarche, Abnormal Vaginal Bleeding, Dysmenorrhea, Dyspareunia, Genital Lesions, Genital Pruritis, Pelvic Pain, Prolapse Symptoms, Sexual Dysfunction, Vaginal Discharge, Vaginal Dryness, Vaginal Odor, Vaginal Pruritis, Other - Menstruation Menstruation: absent: As Per HPI, Amenorrhea, Amenorrhea/ Control, Currently Menstual, Cycle <21 Days, Cycle >35 Days, Cycle Variable, Menses 1-7 Days, Menses >/= 8 Days, Menses Variable, Cycle > 4 Weeks Between, No Menses for 6 Months, Heavy Menses, Light Menses, Normal Menses, Spotting Between Cycles, S/P Hysterectomy, Menopausal, Post Menopausal, Premenarche, Abnormal Vaginal Bleeding, Dysmenorrhea, Other - Musculoskeletal Musculoskeletal: As Per HPI - Integumentary Integumentary: As Per HPI, Skin Pain, Wounds - Neurological Neurological: As Per HPI, Sensory Deficit - Psychiatric Psychiatric: absent: As Per HPI, Abnormal Sleep Pattern, Anhedonia, Anxiety, Auditory Hallucinations, Behavioral Changes, Change in Appetite, Change in Libido, Confusion, Depression, Difficulty Concentrating, Hallucinations, Homicidal Ideation, Hopelessness, Irritability, Memory Loss, Mood Swings, Panic Attacks, Paranoia, Suicidal Ideation, Visual Hallucinations, Tactile Hallucinations, Other - Endocrine Endocrine: As Per HPI - Hematologic/Lymphatic Hematologic: As Per HPI Past Patient History - Past Medical History & Family History Past Medical History?: Yes Past Family History: Reviewed and not pertinent - Past Social History Smoking Status: Never Smoked Chewing Tobacco Use: No Cigar Use: No Alcohol: None Drugs: Denies Home Situation {Lives}: Care Home - CARDIAC Hx Hypertension: Yes Hx Peripheral Edema: Yes - PULMONARY Hx Respiratory Disorders: No - NEUROLOGICAL Hx Neurological Disorder: No - HEENT Hx HEENT Problems: Yes Hx Cataracts: Yes - RENAL Hx Chronic Kidney Disease: Yes Date of Last Dialysis Treatment: 07/08/18 - ENDOCRINE/METABOLIC Hx Diabetes Mellitus Type 2: Yes - HEMATOLOGICAL/ONCOLOGICAL Hx Anemia: Yes - INTEGUMENTARY Hx Dermatological Problems: No Other/Comment: WOUND TO LEFT FOOT. 2ND DIGIT - MUSCULOSKELETAL/RHEUMATOLOGICAL Hx Musculoskeletal Disorders: No Hx Falls: No - GASTROINTESTINAL Hx Gastrointestinal Disorders: Yes (constipation) - GENITOURINARY/GYNECOLOGICAL Hx Genitourinary Disorders: No - PSYCHIATRIC Hx Substance Use: No - SURGICAL HISTORY Hx Surgeries: Yes Hx Cataract Extraction: Yes (right eye) Hx Eye Surgery: Yes (detached retina right eye) Hx Vascular Surgery: Yes (Left arm graft, and right arm fistula.) Hx Vascular Access Device: Yes (Left arm graft, and right arm fistula.) - ANESTHESIA Hx Anesthesia: Yes Hx Anesthesia Reactions: No Hx Malignant Hyperthermia: No Meds Allergies/Adverse Reactions: Allergies Allergy/AdvReac Type Severity Reaction Status Date / Time No Known Allergies Allergy Verified 01/16/14 10:58 - Medications Medications: Current Medications Acetaminophen (Tylenol 325mg Tab) 650 mg PO Q4H PRN PRN Reason: Fever >100.4 F Amlodipine Besylate (Norvasc) 10 mg PO DAILY [facility] Last Admin: 07/10/18 13:34 Dose: Not Given Cinacalcet (Sensipar) 30 mg PO DAILY [facility] Last Admin: 07/10/18 11:17 Dose: 30 mg Clonidine HCl (Catapres) 0.2 mg PO Q12H [facility] Last Admin: 07/10/18 13:34 Dose: Not Given Docusate Sodium (Colace) 100 mg PO HS [facility] Heparin Sodium (Porcine) (Heparin) 5,000 units SC Q12 [facility] Last Admin: 07/10/18 11:25 Dose: Not Given Home Med (Vitamin A And D Ointment) 1 applic TD DAILY [facility] Last Admin: 07/10/18 11:21 Dose: Not Given Hydralazine HCl (Apresoline) 25 mg PO Q12 [facility] Last Admin: 07/10/18 13:33 Dose: Not Given Insulin Human Regular (Novolin R) 0 unit SC ACHS [facility]; Protocol Last Admin: 07/10/18 13:34 Dose: Not Given Lactulose (Enulose) 20 gm PO Q24H PRN PRN Reason: Constipation Sevelamer Carbonate (Renvela) 2,400 mg PO TIDCC [facility] Last Admin: 07/10/18 11:30 Dose: 2,400 mg Tramadol HCl (Ultram) 50 mg PO Q6 PRN PRN Reason: Pain, moderate (4-7) Vitamin B Complex/Vit C/Folic Acid (Nephro-Jessy) 1 tab PO MWF [facility] Last Admin: 07/10/18 11:17 Dose: 1 tab Physical Exam - Constitutional Appears: Non-toxic, Chronically Ill - Head Exam Head Exam: ATRAUMATIC, NORMAL INSPECTION, NORMOCEPHALIC - Eye Exam Eye Exam: EOMI, Normal appearance, PERRL Pupil Exam: NORMAL ACCOMODATION, PERRL - ENT Exam ENT Exam: Mucous Membranes Moist, Normal Exam - Neck Exam Neck exam: Positive for: Normal Inspection - Respiratory Exam Respiratory Exam: Clear to Auscultation Bilateral, NORMAL BREATHING PATTERN - Cardiovascular Exam Cardiovascular Exam: REGULAR RHYTHM - GI/Abdominal Exam GI & Abdominal Exam: Normal Bowel Sounds, Soft. absent: Tenderness - Rectal Exam Rectal Exam: Deferred - Exam Exam: NORMAL INSPECTION - Extremities Exam Extremities exam: Positive for: pedal edema, tenderness, pedal pulses present. Negative for: normal inspection - Back Exam Back exam: NORMAL INSPECTION - Neurological Exam Neurological exam: Alert, CN II-XII Intact, Normal Gait, Oriented x3, Reflexes Normal - Psychiatric Exam Psychiatric exam: Normal Affect, Normal Mood - Skin Skin Exam: Dry Additional comments: left foot with digit infection as described Results - Vital Signs Recent Vital Signs: Last Vital Signs Temp 97.7 F 07/10/18 14:55 Pulse 75 07/10/18 15:17 Resp 18 07/10/18 15:17 BP 168/98 H 07/10/18 17:55 Pulse Ox 100 07/10/18 14:55 - Labs Result Diagrams: 07/09/18 21:21 07/09/18 21:53 Labs: Laboratory Results - last 24 hr 07/09/18 07/09/18 07/09/18 21:21 21:53 21:53 WBC 7.9 RBC 3.10 L Hgb 9.3 L Hct 27.7 L MCV 89.3 MCH 30.1 MCHC 33.7 RDW 19.6 H Plt Count 241 MPV 7.9 Neut % (Auto) 71.2 Lymph % (Auto) 18.3 L [place] % (Auto) 8.1 Eos % (Auto) 1.5 Baso % (Auto) 0.9 Neut # (Auto) 5.6 Lymph # (Auto) 1.4 [place] # (Auto) 0.6 Eos # (Auto) 0.1 Baso # (Auto) 0.1 PT 12.5 H INR 1.1 APTT 37.1 H Sodium 134 Potassium 4.3 Chloride 90 L Carbon Dioxide 30 Anion Gap 18 BUN 47 H Creatinine 6.4 H Est GFR ( Amer) 8 Est GFR (Non-Af Amer) 7 POC Glucose (mg/dL) Random Glucose 108 H Calcium 10.8 H Total Bilirubin 0.5 AST 27 ALT 21 Alkaline Phosphatase 269 H D NT-Pro-B Natriuret Pep 3000 H Total Protein 7.9 Albumin 4.0 Globulin 3.9 Albumin/Globulin Ratio 1.0 07/10/18 07/10/18 07:14 11:17 WBC RBC Hgb Hct MCV MCH MCHC RDW Plt Count MPV Neut % (Auto) Lymph % (Auto) [place] % (Auto) Eos % (Auto) Baso % (Auto) Neut # (Auto) Lymph # (Auto) [place] # (Auto) Eos # (Auto) Baso # (Auto) PT INR APTT Sodium Potassium Chloride Carbon Dioxide Anion Gap BUN Creatinine Est GFR ( Amer) Est GFR (Non-Af Amer) POC Glucose (mg/dL) 87 108 Random Glucose Calcium Total Bilirubin AST ALT Alkaline Phosphatase NT-Pro-B Natriuret Pep Total Protein Albumin Globulin Albumin/Globulin Ratio Assessment & Plan (1) Lumbar discitis Status: Acute (2) Osteomyelitis of lumbar spine Status: Acute (3) Osteomyelitis of second toe of left foot Status: Acute (4) Spinal stenosis Status: Acute (5) Complication of arteriovenous dialysis fistula Status: Acute (6) ESRD (end stage renal disease) Status: Acute (7) Secondary hyperparathyroidism Status: Acute (8) Type 2 diabetes mellitus with diabetic nephropathy Status: Acute - Assessment and Plan (Free Text) Assessment: refused amputation digit blood cultures neg thus far severe discitis /OM no drainable abscess at this time Neurosurg on board cont IV rx for 6-8 weeks min
--- NOTE | 2018-07-10 18:31 | CP.PCM.CON ---
History of Present Illness - History of Present Illness History of Present Illness: Podiatry Consult Note - Dr. Bolaños 67 y/o female with PMHx of Diabetes, CKD on ESRD (MWF), chronic back pain and L 2nd digit ulcer with underlying OM seen at bedside after consultation for left foot 2nd digit ulceration with underlying osteomyelitis and gangrenous changes of the left 1st and 2nd toes. Patient states that she was admitted to the hospital a month ago when she started to develop the toe ulceration. She states that she was under care of Dr. Shafer who diagnosed her of having OM and the recommendations was for toe amp. She states that she refused the amputation. She states that she was transferred to [facility] to receive IV Abx and she was under care of Dr. Bolaños there. She states that she doesn't have pain at the ulcer site as of now. States she does occasionally experience tingling and numbness sensations in the feet. Patient admitted for lower back pain and suspicious OM of the lumber spines. She denies any recent F/C/N/V/CP/SOB. PMHx: Diabetes, CKD on ESRD (MWF), chronic back pain and L 2nd digit ulcer with underlying OM. PSH: AV fistula, left AV shunt, cataract surgery All: NKDA SocHx: denies EtOH, cigarette or illicit drug use Review of Systems - Review of Systems Review of Systems: As per HPI - Constitutional Constitutional: As Per HPI Past Patient History - Past Medical History & Family History Past Medical History?: Yes Past Family History: Reviewed and not pertinent - Past Social History Smoking Status: Never Smoked Chewing Tobacco Use: No Cigar Use: No Alcohol: None Drugs: Denies Home Situation {Lives}: Longterm - CARDIAC Hx Hypertension: Yes Hx Peripheral Edema: Yes - PULMONARY Hx Respiratory Disorders: No - NEUROLOGICAL Hx Neurological Disorder: No - HEENT Hx HEENT Problems: Yes Hx Cataracts: Yes - RENAL Hx Chronic Kidney Disease: Yes Date of Last Dialysis Treatment: 07/08/18 - ENDOCRINE/METABOLIC Hx Diabetes Mellitus Type 2: Yes - HEMATOLOGICAL/ONCOLOGICAL Hx Anemia: Yes - INTEGUMENTARY Hx Dermatological Problems: No Other/Comment: WOUND TO LEFT FOOT. 2ND DIGIT - MUSCULOSKELETAL/RHEUMATOLOGICAL Hx Musculoskeletal Disorders: No Hx Falls: No - GASTROINTESTINAL Hx Gastrointestinal Disorders: Yes (constipation) - GENITOURINARY/GYNECOLOGICAL Hx Genitourinary Disorders: No - PSYCHIATRIC Hx Substance Use: No - SURGICAL HISTORY Hx Surgeries: Yes Hx Cataract Extraction: Yes (right eye) Hx Eye Surgery: Yes (detached retina right eye) Hx Vascular Surgery: Yes (Left arm graft, and right arm fistula.) Hx Vascular Access Device: Yes (Left arm graft, and right arm fistula.) - ANESTHESIA Hx Anesthesia: Yes Hx Anesthesia Reactions: No Hx Malignant Hyperthermia: No Meds Allergies/Adverse Reactions: Allergies Allergy/AdvReac Type Severity Reaction Status Date / Time No Known Allergies Allergy Verified 01/16/14 10:58 - Medications Medications: Current Medications Acetaminophen (Tylenol 325mg Tab) 650 mg PO Q4H PRN PRN Reason: Fever >100.4 F Amlodipine Besylate (Norvasc) 10 mg PO DAILY [facility] Last Admin: 07/10/18 13:34 Dose: Not Given Cinacalcet (Sensipar) 30 mg PO DAILY [facility] Last Admin: 07/10/18 11:17 Dose: 30 mg Clonidine HCl (Catapres) 0.2 mg PO Q12H [facility] Last Admin: 07/10/18 13:34 Dose: Not Given Docusate Sodium (Colace) 100 mg PO HS [facility] Heparin Sodium (Porcine) (Heparin) 5,000 units SC Q12 [facility] Last Admin: 07/10/18 11:25 Dose: Not Given Home Med (Vitamin A And D Ointment) 1 applic TD DAILY [facility] Last Admin: 07/10/18 11:21 Dose: Not Given Hydralazine HCl (Apresoline) 25 mg PO Q12 [facility] Last Admin: 07/10/18 13:33 Dose: Not Given Vancomycin HCl 1 gm/ Sodium (Chloride) 250 mls @ 166.7 mls/hr IVPB MWF [facility]; Protocol Cefepime HCl 1 gm/ Dextrose 50 mls @ 100 mls/hr IVPB Q24H [facility]; Protocol Insulin Human Regular (Novolin R) 0 unit SC ACHS [facility]; Protocol Last Admin: 07/10/18 13:34 Dose: Not Given Lactulose (Enulose) 20 gm PO Q24H PRN PRN Reason: Constipation Sevelamer Carbonate (Renvela) 2,400 mg PO TIDCC [facility] Last Admin: 07/10/18 11:30 Dose: 2,400 mg Tramadol HCl (Ultram) 50 mg PO Q6 PRN PRN Reason: Pain, moderate (4-7) Vitamin B Complex/Vit C/Folic Acid (Nephro-Jessy) 1 tab PO MWF [facility] Last Admin: 07/10/18 11:17 Dose: 1 tab Physical Exam - Constitutional Appears: No Acute Distress - Head Exam Head Exam: ATRAUMATIC - Extremities Exam Additional comments: Lower extremity focused exam: Vasc: DP/PT pulses faintly palpable 1/4 B/L. Temperature gradient warm to cool on b/l. Pedal hair growth absent Neuro: protective sensation grossly diminished Derm: open ulceration noted to 2nd digit PIPJ of left foot approx 1cm x 0.8cm x 0.3cm with 50:50 fibrotic and necrotic wound base. (+) probe to bone noted. No malodor, Positive purulence noted around the ulcer, no fluctuance. No james-wound erythema noted at present. 2nd Toe and tip[ of the 1st toe looks gangrenous with skin peeling off up to the level of 1-3 met heads. Dystrophic thickened toenails to B/L hallucal toenails noted MSK: Mild hammertoe contractures noted to lesser digits B/L. No tenderness elicited to palpation of left 1st and 2nd digits. MMT 5/5 to all groups b/l. - Neurological Exam Neurological exam: Alert, Oriented x3 - Psychiatric Exam Psychiatric exam: Normal Affect Results - Vital Signs Recent Vital Signs: Last Vital Signs Temp 97.7 F 07/10/18 14:55 Pulse 75 07/10/18 15:17 Resp 18 07/10/18 15:17 BP 168/98 H 07/10/18 17:55 Pulse Ox 100 07/10/18 14:55 - Labs Result Diagrams: 07/09/18 21:21 07/09/18 21:53 Labs: Laboratory Results - last 24 hr 07/09/18 07/09/18 07/09/18 21:21 21:53 21:53 WBC 7.9 RBC 3.10 L Hgb 9.3 L Hct 27.7 L MCV 89.3 MCH 30.1 MCHC 33.7 RDW 19.6 H Plt Count 241 MPV 7.9 Neut % (Auto) 71.2 Lymph % (Auto) 18.3 L [place] % (Auto) 8.1 Eos % (Auto) 1.5 Baso % (Auto) 0.9 Neut # (Auto) 5.6 Lymph # (Auto) 1.4 [place] # (Auto) 0.6 Eos # (Auto) 0.1 Baso # (Auto) 0.1 PT 12.5 H INR 1.1 APTT 37.1 H Sodium 134 Potassium 4.3 Chloride 90 L Carbon Dioxide 30 Anion Gap 18 BUN 47 H Creatinine 6.4 H Est GFR ( Amer) 8 Est GFR (Non-Af Amer) 7 POC Glucose (mg/dL) Random Glucose 108 H Calcium 10.8 H Total Bilirubin 0.5 AST 27 ALT 21 Alkaline Phosphatase 269 H D NT-Pro-B Natriuret Pep 3000 H Total Protein 7.9 Albumin 4.0 Globulin 3.9 Albumin/Globulin Ratio 1.0 07/10/18 07/10/18 07:14 11:17 WBC RBC Hgb Hct MCV MCH MCHC RDW Plt Count MPV Neut % (Auto) Lymph % (Auto) [place] % (Auto) Eos % (Auto) Baso % (Auto) Neut # (Auto) Lymph # (Auto) [place] # (Auto) Eos # (Auto) Baso # (Auto) PT INR APTT Sodium Potassium Chloride Carbon Dioxide Anion Gap BUN Creatinine Est GFR ( Amer) Est GFR (Non-Af Amer) POC Glucose (mg/dL) 87 108 Random Glucose Calcium Total Bilirubin AST ALT Alkaline Phosphatase NT-Pro-B Natriuret Pep Total Protein Albumin Globulin Albumin/Globulin Ratio Assessment & Plan - Assessment and Plan (Free Text) Assessment: 67 y/o female with PMHx of Diabetes, CKD on ESRD (MWF), chronic back pain and L 2nd digit ulcer with underlying OM seen at bedside after consultation for left foot 2nd digit ulceration with underlying osteomyelitis and gangrenous changes of the left 1st and 2nd toes. Plan: Patient seen and evaluated in the bedside Discussed plan with Dr. Bolaños Charts, labs and vitals reviewed: Afebrile, no leukocytosis noted Left foot x-ray ordered Wound site cleaned with saline, dressed with Xeroform, DSD ID onboard Dr. Gilliland, appreciate recommendations Podiatry will continue to follow patient while in house Thank you for the consult - Date & Time Date: 07/10/18 Time: 18:20
--- NOTE | 2018-07-10 22:37 | CP.PCM.PN ---
Subjective - Date & Time of Evaluation Date of Evaluation: 07/10/18 Time of Evaluation: 22:27 - Subjective Subjective: SPINE MRI reviewed. Severe stenosis at L3-4,4-5. Diskitis/osteomyelitis at L2-3. May need surgical treatment for stenosis in future, but needs to complete therapy for infection first. If pain in lower back an issue could consult pain m anagement in the interim. Objective - Vital Signs/Intake and Output Vital Signs (last 24 hours): Temp Pulse Resp BP Pulse Ox 98.2 F 81 20 139/69 99 07/10/18 19:18 07/10/18 19:18 07/10/18 19:18 07/10/18 22:19 07/10/18 19:18 Intake and Output: 07/10/18 07/11/18 18:59 06:59 Intake Total 500 Balance 500 - Medications Medications: Current Medications Acetaminophen (Tylenol 325mg Tab) 650 mg PO Q4H PRN PRN Reason: Fever >100.4 F Amlodipine Besylate (Norvasc) 10 mg PO DAILY [facility] Last Admin: 07/10/18 13:34 Dose: Not Given Cinacalcet (Sensipar) 30 mg PO DAILY [facility] Last Admin: 07/10/18 11:17 Dose: 30 mg Clonidine HCl (Catapres) 0.2 mg PO Q12H [facility] Last Admin: 07/10/18 21:55 Dose: 0.2 mg Docusate Sodium (Colace) 100 mg PO HS [facility] Last Admin: 07/10/18 21:55 Dose: 100 mg Heparin Sodium (Porcine) (Heparin) 5,000 units SC Q12 [facility] Last Admin: 07/10/18 22:05 Dose: Not Given Home Med (Vitamin A And D Ointment) 1 applic TD DAILY [facility] Last Admin: 07/10/18 11:21 Dose: Not Given Hydralazine HCl (Apresoline) 25 mg PO Q12 [facility] Last Admin: 07/10/18 21:55 Dose: 25 mg Cefepime HCl 1 gm/ Dextrose 50 mls @ 100 mls/hr IVPB Q24H [facility]; Protocol Last Admin: 07/10/18 20:05 Dose: 100 mls/hr Vancomycin HCl 1 gm/ Sodium (Chloride) 250 mls @ 166.7 mls/hr IVPB MWF [facility]; Protocol Last Admin: 07/10/18 21:50 Dose: 166.7 mls/hr Insulin Human Regular (Novolin R) 0 unit SC ACHS [facility]; Protocol Last Admin: 07/10/18 22:05 Dose: Not Given Lactulose (Enulose) 20 gm PO Q24H PRN PRN Reason: Constipation Last Admin: 07/10/18 21:51 Dose: 20 gm Sevelamer Carbonate (Renvela) 2,400 mg PO TIDCC [facility] Last Admin: 07/10/18 19:09 Dose: 2,400 mg Tramadol HCl (Ultram) 50 mg PO Q6 PRN PRN Reason: Pain, moderate (4-7) Vitamin B Complex/Vit C/Folic Acid (Nephro-Jessy) 1 tab PO MWF [facility] Last Admin: 07/10/18 11:17 Dose: 1 tab - Labs Labs: 07/09/18 21:21 07/09/18 21:53 PT 12.5 SECONDS (9.7-12.2) H 07/09/18 21:53 INR 1.1 07/09/18 21:53 APTT 37.1 SECONDS (21-34) H 07/09/18 21:53
--- NOTE | 2018-07-11 00:34 | CARD ---
APPROVED REPORT Date of service: 07/09/2018 EKG Measurement Heart [id number] [id number] <Conclusion> Sinus rhythm with 1st degree AV block with premature atrial complexes Rightward axis Cannot rule out Anterior infarct, age undetermined Abnormal ECG
[2018-07-11] MEDS: (Novolin R) Insulin Human Regular 100 units/ml vial SC SCH ×4 (07:39→21:34)
--- NOTE | 2018-07-11 10:00 | CP.PCM.PN ---
Subjective - Date & Time of Evaluation Date of Evaluation: 07/11/18 Time of Evaluation: 09:55 - Subjective Subjective: afebrile bp stable no new lab data comfortable supine in bed dialysis removed over 2 kg last PM ROS no chills fever no chest pain cough no abd pain,n,v,d anuric less back pain in bed left foot pain persists Objective - Vital Signs/Intake and Output Vital Signs (last 24 hours): Temp Pulse Resp BP Pulse Ox 98.6 F 73 20 120/65 98 07/11/18 07:58 07/11/18 07:58 07/11/18 07:58 07/11/18 07:58 07/11/18 07:58 Intake and Output: 07/11/18 07/11/18 06:59 18:59 Intake Total 480 240 Output Total 0 Balance 480 240 - Medications Medications: Current Medications Acetaminophen (Tylenol 325mg Tab) 650 mg PO Q4H PRN PRN Reason: Fever >100.4 F Amlodipine Besylate (Norvasc) 10 mg PO DAILY [facility] Last Admin: 07/10/18 13:34 Dose: Not Given Cinacalcet (Sensipar) 30 mg PO DAILY [facility] Last Admin: 07/10/18 11:17 Dose: 30 mg Clonidine HCl (Catapres) 0.2 mg PO Q12H [facility] Last Admin: 07/10/18 21:55 Dose: 0.2 mg Docusate Sodium (Colace) 100 mg PO HS [facility] Last Admin: 07/10/18 21:55 Dose: 100 mg Emollient Ointment (Vaseline Oint) 1 gm TOP DAILY [facility] Heparin Sodium (Porcine) (Heparin) 5,000 units SC Q12 [facility] Last Admin: 07/10/18 22:05 Dose: Not Given Hydralazine HCl (Apresoline) 25 mg PO Q12 [facility] Last Admin: 07/10/18 21:55 Dose: 25 mg Vancomycin/Sodium Chloride (Vancomycin 1 Gm/Ns 200 Ml) 1 gm in 200 mls @ 133.333 mls/hr IVPB MWF [facility]; Protocol Stop: 07/15/18 22:01 Cefepime HCl (Maxipime Iv 1 Gm Premix) 1 gm in 50 mls @ 100 mls/hr IVPB Q24H [facility]; Protocol Insulin Human Regular (Novolin R) 0 unit SC ACHS [facility]; Protocol Last Admin: 07/11/18 07:39 Dose: Not Given Lactulose (Enulose) 20 gm PO Q24H PRN PRN Reason: Constipation Last Admin: 07/10/18 21:51 Dose: 20 gm Sevelamer Carbonate (Renvela) 2,400 mg PO TIDCC [facility] Last Admin: 07/11/18 08:21 Dose: 2,400 mg Tramadol HCl (Ultram) 50 mg PO Q6 PRN PRN Reason: Pain, moderate (4-7) Last Admin: 07/11/18 03:25 Dose: 50 mg Vitamin B Complex/Vit C/Folic Acid (Nephro-Jessy) 1 tab PO MWF [facility] Last Admin: 07/10/18 11:17 Dose: 1 tab - Labs Labs: 07/09/18 21:21 07/09/18 21:53 PT 12.5 SECONDS (9.7-12.2) H 07/09/18 21:53 INR 1.1 07/09/18 21:53 APTT 37.1 SECONDS (21-34) H 07/09/18 21:53 - Constitutional Appears: Well, No Acute Distress - Head Exam Head Exam: ATRAUMATIC, NORMOCEPHALIC - ENT Exam ENT Exam: Mucous Membranes Moist - Respiratory Exam Respiratory Exam: Clear to Ausculation Bilateral, NORMAL BREATHING PATTERN - Cardiovascular Exam Cardiovascular Exam: REGULAR RHYTHM. absent: JVD - GI/Abdominal Exam GI & Abdominal Exam: Soft. absent: Distended, Tenderness - Extremities Exam Extremities Exam: absent: Calf Tenderness, Joint Swelling Additional comments: left foot bandaged - Back Exam Back Exam: CVA tenderness (L) - Neurological Exam Neurological Exam: Alert, Awake - Psychiatric Exam Psychiatric exam: Normal Affect, Normal Mood - Skin Skin Exam: Dry, Warm Assessment and Plan (1) Osteomyelitis of lumbar spine Status: Acute (2) ESRD (end stage renal disease) Status: Acute (3) Secondary hyperparathyroidism Status: Acute (4) Type 2 diabetes mellitus with diabetic nephropathy Status: Acute - Assessment and Plan (Free Text) Plan: dialysis with ultrafiltration scheduled for 07/13 orders writtenantibiotic oredered by ID follow surgery recommendations
[2018-07-11] MEDS: Petrolatum Oint Foilpak (5 gm) TOP SCH (10:06)
--- NOTE | 2018-07-11 10:22 | CP.PCM.PN ---
Subjective - Date & Time of Evaluation Date of Evaluation: 07/11/18 Time of Evaluation: 10:22 - Subjective Subjective: Pt reports feeling ok +constipated, but starting to move bm after some Lactulose and juice pt states back pain is stable feels comfortable Objective - Vital Signs/Intake and Output Vital Signs (last 24 hours): Temp Pulse Resp BP Pulse Ox 98.6 F 73 20 120/65 98 07/11/18 07:58 07/11/18 07:58 07/11/18 07:58 07/11/18 07:58 07/11/18 07:58 Intake and Output: 07/11/18 07/11/18 06:59 18:59 Intake Total 480 240 Output Total 0 Balance 480 240 - Medications Medications: Current Medications Acetaminophen (Tylenol 325mg Tab) 650 mg PO Q4H PRN PRN Reason: Fever >100.4 F Amlodipine Besylate (Norvasc) 10 mg PO DAILY [facility] Last Admin: 07/11/18 10:06 Dose: 10 mg Cinacalcet (Sensipar) 30 mg PO DAILY [facility] Last Admin: 07/11/18 10:06 Dose: 30 mg Clonidine HCl (Catapres) 0.2 mg PO Q12H [facility] Last Admin: 07/11/18 10:06 Dose: 0.2 mg Docusate Sodium (Colace) 100 mg PO HS [facility] Last Admin: 07/10/18 21:55 Dose: 100 mg Emollient Ointment (Vaseline Oint) 1 gm TOP DAILY [facility] Last Admin: 07/11/18 10:06 Dose: 1 gm Heparin Sodium (Porcine) (Heparin) 5,000 units SC Q12 [facility] Last Admin: 07/11/18 10:05 Dose: 5,000 units Hydralazine HCl (Apresoline) 25 mg PO Q12 [facility] Last Admin: 07/11/18 10:06 Dose: 25 mg Vancomycin/Sodium Chloride (Vancomycin 1 Gm/Ns 200 Ml) 1 gm in 200 mls @ 133.333 mls/hr IVPB MWF [facility]; Protocol Stop: 07/15/18 22:01 Cefepime HCl (Maxipime Iv 1 Gm Premix) 1 gm in 50 mls @ 100 mls/hr IVPB Q24H [facility]; Protocol Insulin Human Regular (Novolin R) 0 unit SC ACHS [facility]; Protocol Last Admin: 07/11/18 07:39 Dose: Not Given Lactulose (Enulose) 20 gm PO Q6 [facility] Sevelamer Carbonate (Renvela) 2,400 mg PO TIDCC [facility] Last Admin: 07/11/18 08:21 Dose: 2,400 mg Tramadol HCl (Ultram) 50 mg PO Q6 PRN PRN Reason: Pain, moderate (4-7) Last Admin: 07/11/18 03:25 Dose: 50 mg Vitamin B Complex/Vit C/Folic Acid (Nephro-Jessy) 1 tab PO MWF [facility] Last Admin: 07/10/18 11:17 Dose: 1 tab - Labs Labs: 07/09/18 21:21 07/09/18 21:53 PT 12.5 SECONDS (9.7-12.2) H 07/09/18 21:53 INR 1.1 07/09/18 21:53 APTT 37.1 SECONDS (21-34) H 07/09/18 21:53 - Constitutional Appears: Well, Non-toxic - Eye Exam Eye Exam: Normal appearance - ENT Exam ENT Exam: Mucous Membranes Moist - Respiratory Exam Respiratory Exam: Clear to Ausculation Bilateral - Cardiovascular Exam Cardiovascular Exam: RRR, +S1, +S2. absent: JVD - GI/Abdominal Exam GI & Abdominal Exam: Soft, Normal Bowel Sounds. absent: Tenderness - Extremities Exam Extremities Exam: Full ROM - Neurological Exam Neurological Exam: Alert, Oriented x3 Assessment and Plan - Assessment and Plan (Free Text) Assessment: Lumbar spine MRI changes c/w infection foot osteo ID on board abx adjusted Neuro surgery on board as well discussed case with pt not interested in any surgery bp stable ON HD
--- NOTE | 2018-07-11 12:28 | CP.PCM.PN ---
Subjective - Date & Time of Evaluation Date of Evaluation: 07/11/18 Time of Evaluation: 12:25 - Subjective Subjective: Podiatry progress Note - Dr. Bolaños 67 y/o female patient seen at bedside after consultation for left foot 2nd digit ulceration with underlying osteomyelitis and gangrenous changes of the left 1st and 2nd toes. Patient states that she doesn't have pain at the ulcer site as of now Patient denies any other pedal complaint at this time. She denies any recent F/C/N/V/CP/SOB. Objective - Vital Signs/Intake and Output Vital Signs (last 24 hours): Temp Pulse Resp BP Pulse Ox 98.6 F 73 20 120/65 98 07/11/18 07:58 07/11/18 07:58 07/11/18 07:58 07/11/18 07:58 07/11/18 07:58 Intake and Output: 07/11/18 07/11/18 06:59 18:59 Intake Total 480 240 Output Total 0 Balance 480 240 - Medications Medications: Current Medications Acetaminophen (Tylenol 325mg Tab) 650 mg PO Q4H PRN PRN Reason: Fever >100.4 F Amlodipine Besylate (Norvasc) 10 mg PO DAILY [facility] Last Admin: 07/11/18 10:06 Dose: 10 mg Cinacalcet (Sensipar) 30 mg PO DAILY [facility] Last Admin: 07/11/18 10:06 Dose: 30 mg Clonidine HCl (Catapres) 0.2 mg PO Q12H [facility] Last Admin: 07/11/18 10:06 Dose: 0.2 mg Docusate Sodium (Colace) 100 mg PO HS [facility] Last Admin: 07/10/18 21:55 Dose: 100 mg Emollient Ointment (Vaseline Oint) 1 gm TOP DAILY [facility] Last Admin: 07/11/18 10:06 Dose: 1 gm Heparin Sodium (Porcine) (Heparin) 5,000 units SC Q12 [facility] Last Admin: 07/11/18 10:05 Dose: 5,000 units Hydralazine HCl (Apresoline) 25 mg PO Q12 [facility] Last Admin: 07/11/18 10:06 Dose: 25 mg Vancomycin/Sodium Chloride (Vancomycin 1 Gm/Ns 200 Ml) 1 gm in 200 mls @ 133.333 mls/hr IVPB MWF [facility]; Protocol Stop: 07/15/18 22:01 Cefepime HCl (Maxipime Iv 1 Gm Premix) 1 gm in 50 mls @ 100 mls/hr IVPB Q24H [facility]; Protocol Insulin Human Regular (Novolin R) 0 unit SC ACHS [facility]; Protocol Last Admin: 07/11/18 11:16 Dose: Not Given Lactulose (Enulose) 20 gm PO Q6 [facility] Last Admin: 07/11/18 11:41 Dose: 20 gm Sevelamer Carbonate (Renvela) 2,400 mg PO TIDCC [facility] Last Admin: 07/11/18 11:41 Dose: 2,400 mg Tramadol HCl (Ultram) 50 mg PO Q6 PRN PRN Reason: Pain, moderate (4-7) Last Admin: 07/11/18 03:25 Dose: 50 mg Vitamin B Complex/Vit C/Folic Acid (Nephro-Jessy) 1 tab PO MWF [facility] Last Admin: 07/10/18 11:17 Dose: 1 tab - Labs Labs: 07/09/18 21:21 07/09/18 21:53 PT 12.5 SECONDS (9.7-12.2) H 07/09/18 21:53 INR 1.1 07/09/18 21:53 APTT 37.1 SECONDS (21-34) H 07/09/18 21:53 - Constitutional Appears: No Acute Distress - Head Exam Head Exam: ATRAUMATIC - Extremities Exam Additional comments: Lower extremity focused exam: Vasc: DP/PT pulses faintly palpable 1/4 B/L. Temperature gradient warm to cool on b/l. Pedal hair growth absent Neuro: protective sensation grossly diminished Derm: open ulceration noted to 2nd digit PIPJ of left foot approx 1cm x 0.8cm x 0.3cm with 50:50 fibrotic and necrotic wound base. (+) probe to bone noted. No malodor, Positive purulence noted around the ulcer, no fluctuance. No james-wound erythema noted at present. 2nd Toe and tip[ of the 1st toe looks gangrenous with skin peeling off up to the level of 1-3 met heads. Dystrophic thickened toenails to B/L hallucal toenails noted MSK: Mild hammertoe contractures noted to lesser digits B/L. No tenderness elicited to palpation of left 1st and 2nd digits. MMT 5/5 to all groups b/l. - Neurological Exam Neurological Exam: Alert, Awake, Oriented x3 - Psychiatric Exam Psychiatric exam: Normal Affect, Normal Mood Assessment and Plan - Assessment and Plan (Free Text) Assessment: 67 y/o female patient seen at bedside after consultation for left foot 2nd digit ulceration with underlying osteomyelitis and gangrenous changes of the left 1st and 2nd toes. Plan: Patient seen and evaluated in the bedside Discussed plan with Dr. Bolaños Charts, labs and vitals reviewed: Afebrile, no leukocytosis noted Left foot x-ray ordered: pending report Wound culture cllected and sent to lab. Wound site cleaned with saline, dressed with Xeroform, DSD ID onboard Dr. Gilliland, appreciate recommendations Podiatry will continue to follow patient while in house
[2018-07-11] MEDS: Cefepime IV 1 gm in Dextrose 1 GM/50 ML BAG IVPB SCH (18:58)
[2018-07-12] MEDS: (Novolin R) Insulin Human Regular 100 units/ml vial SC SCH ×4 (07:47→21:57)
[2018-07-12 08:36] LABS: HEMOGLOBIN 8.3 g/dL (11.0-16.0); MEAN CELL VOLUME 88.4 fL (81.0-99.0); MEAN CORPUSCULAR HEMOGLOBIN 29.9 pg (27.0-31.0); MEAN CORPUSCULAR HGB CONC 33.8 g/dL (33.0-37.0); MEAN PLATELET VOLUME 8.2 fL (7.2-11.7); RBC 2.78 Mil/uL (3.80-5.20); RED CELL DISTRIBUTION WIDTH 19.3 % (11.5-14.5); WHITE BLOOD COUNT 6.5 K/uL (4.8-10.8)
--- NOTE | 2018-07-12 08:39 | RAD ---
Date of service: 07/11/2018 PROCEDURE: Left Foot Radiographs. HISTORY: left foot ulcerations COMPARISON: None. TECHNIQUE: 3 views obtained. FINDINGS: BONES: Diffuse osteopenia is noted. There is cortical irregularity noted at distal portion of the proximal phalanx of the 2nd toe. The possibility of osteomyelitis cannot be totally excluded. JOINTS: Arthritic degenerative changes. SOFT TISSUES: Soft tissue swelling noted in the 1st and 2nd toe.. OTHER FINDINGS: None. IMPRESSION: Cortical irregularity and possible small erosion at midportion of left 2nd toe. The possibility of osteomyelitis cannot be excluded. Soft tissue swelling of the 2nd toe. If indicated further evaluation by other modalities such as MRI or three-phase bone scan is suggested.
[2018-07-12 09:00] LABS: CALCIUM 10.1 mg/dl (8.6-10.4)
[2018-07-12] MEDS: Petrolatum Oint Foilpak (5 gm) TOP SCH (09:46)
--- NOTE | 2018-07-12 12:17 | CP.PCM.PN ---
Subjective - Date & Time of Evaluation Date of Evaluation: 07/12/18 Time of Evaluation: 12:15 - Subjective Subjective: Podiatry progress Note - Dr. Bolaños 67 y/o female patient seen at bedside after consultation for left foot 2nd digit ulceration with underlying osteomyelitis and gangrenous changes of the left 1st and 2nd toes. Patient states that she doesn't have pain at the ulcer site as of now Patient denies any other pedal complaint at this time. She denies any overnight F/C/N/V/CP/SOB. Objective - Vital Signs/Intake and Output Vital Signs (last 24 hours): Temp Pulse Resp BP Pulse Ox 98 F 64 20 130/71 96 07/12/18 07:45 07/12/18 11:25 07/12/18 07:45 07/12/18 07:45 07/12/18 11:25 Intake and Output: 07/12/18 07/12/18 06:59 18:59 Intake Total 220 Balance 220 - Medications Medications: Current Medications Acetaminophen (Tylenol 325mg Tab) 650 mg PO Q4H PRN PRN Reason: Fever >100.4 F Amlodipine Besylate (Norvasc) 10 mg PO DAILY [facility] Last Admin: 07/12/18 09:46 Dose: 10 mg Cinacalcet (Sensipar) 30 mg PO DAILY [facility] Last Admin: 07/12/18 09:46 Dose: 30 mg Clonidine HCl (Catapres) 0.2 mg PO Q12H [facility] Last Admin: 07/12/18 09:46 Dose: 0.2 mg Docusate Sodium (Colace) 100 mg PO HS [facility] Last Admin: 07/11/18 21:25 Dose: 100 mg Emollient Ointment (Vaseline Oint) 1 gm TOP DAILY [facility] Last Admin: 07/12/18 09:46 Dose: 1 gm Heparin Sodium (Porcine) (Heparin) 5,000 units SC Q12 [facility] Last Admin: 07/12/18 09:46 Dose: 5,000 units Hydralazine HCl (Apresoline) 25 mg PO Q12 [facility] Last Admin: 07/12/18 09:46 Dose: 25 mg Vancomycin/Sodium Chloride (Vancomycin 1 Gm/Ns 200 Ml) 1 gm in 200 mls @ 133.333 mls/hr IVPB MWF [facility]; Protocol Stop: 07/15/18 22:01 Cefepime HCl (Maxipime Iv 1 Gm Premix) 1 gm in 50 mls @ 100 mls/hr IVPB Q24H [facility]; Protocol Last Admin: 07/11/18 18:58 Dose: 100 mls/hr Insulin Human Regular (Novolin R) 0 unit SC ACHS [facility]; Protocol Last Admin: 07/12/18 07:47 Dose: Not Given Lactulose (Enulose) 20 gm PO Q6 [facility] Last Admin: 07/12/18 05:53 Dose: 20 gm Sevelamer Carbonate (Renvela) 2,400 mg PO TIDCC [facility] Last Admin: 07/12/18 07:54 Dose: 2,400 mg Tramadol HCl (Ultram) 50 mg PO Q6 PRN PRN Reason: Pain, moderate (4-7) Last Admin: 07/11/18 18:10 Dose: 50 mg Vitamin B Complex/Vit C/Folic Acid (Nephro-Jessy) 1 tab PO MWF [facility] Last Admin: 07/10/18 11:17 Dose: 1 tab - Labs Labs: 07/12/18 08:21 07/12/18 08:21 PT 12.5 SECONDS (9.7-12.2) H 07/09/18 21:53 INR 1.1 07/09/18 21:53 APTT 37.1 SECONDS (21-34) H 07/09/18 21:53 - Constitutional Appears: Well, Non-toxic, No Acute Distress - Head Exam Head Exam: ATRAUMATIC, NORMOCEPHALIC - Extremities Exam Additional comments: Lower extremity focused exam: Vasc: DP/PT pulses faintly palpable 1/4 B/L. Temperature gradient warm to cool on b/l. Pedal hair growth absent Neuro: protective sensation grossly diminished Derm: open ulceration noted to 2nd digit PIPJ of left foot approx 1cm x 0.8cm x 0.3cm with 50:50 fibrotic and necrotic wound base. (+) probe to bone noted. No malodor, Positive purulence noted around the ulcer, no fluctuance. No james-wound erythema noted at present. 2nd Toe and tip[ of the 1st toe looks gangrenous with skin peeling off up to the level of 1-3 met heads. Dystrophic thickened toenails to B/L hallucal toenails noted MSK: Mild hammertoe contractures noted to lesser digits B/L. No tenderness elicited to palpation of left 1st and 2nd digits. MMT 5/5 to all groups b/l. - Neurological Exam Neurological Exam: Alert, Awake, Oriented x3 - Psychiatric Exam Psychiatric exam: Normal Affect, Normal Mood Assessment and Plan - Assessment and Plan (Free Text) Assessment: 67 y/o female patient seen at bedside after consultation for left foot 2nd digit ulceration with underlying osteomyelitis and gangrenous changes of the left 1st and 2nd toes. Plan: Patient seen and evaluated in the bedside Discussed plan with Dr. Bolaños Charts, labs and vitals reviewed: Afebrile, no leukocytosis noted Left foot x-ray ordered: cortical erosions of the 2nd toe distal phalanx consistent with OM. Wound culture: Pending. Wound site cleaned with saline, dressed with Xeroform, DSD ID onboard Dr. Gilliland, appreciate recommendations Podiatry will continue to follow patient while in house
[2018-07-12] MEDS: Cefepime IV 1 gm in Dextrose 1 GM/50 ML BAG IVPB SCH (17:54)
--- NOTE | 2018-07-12 23:17 | CP.PCM.PN ---
Subjective - Date & Time of Evaluation Date of Evaluation: 07/12/18 Time of Evaluation: 08:00 - Subjective Subjective: events noted iv rx in progress 67 y/o female patient seen at bedside after consultation for left foot 2nd digit ulceration with underlying osteomyelitis and gangrenous changes of the left 1st and 2nd toes. Less back pain no fever refused surgery for foot infection in past Objective - Vital Signs/Intake and Output Vital Signs (last 24 hours): Temp Pulse Resp BP Pulse Ox 98.0 F 64 20 130/71 96 07/12/18 16:06 07/12/18 11:25 07/12/18 07:45 07/12/18 07:45 07/12/18 11:25 Intake and Output: 07/12/18 07/12/18 06:59 18:59 Intake Total 700 Balance 700 - Medications Medications: Current Medications Acetaminophen (Tylenol 325mg Tab) 650 mg PO Q4H PRN PRN Reason: Fever >100.4 F Last Admin: 07/12/18 16:06 Dose: 650 mg Amlodipine Besylate (Norvasc) 10 mg PO DAILY [facility] Last Admin: 07/12/18 09:46 Dose: 10 mg Cinacalcet (Sensipar) 30 mg PO DAILY [facility] Last Admin: 07/12/18 09:46 Dose: 30 mg Clonidine HCl (Catapres) 0.2 mg PO Q12H [facility] Last Admin: 07/12/18 09:46 Dose: 0.2 mg Docusate Sodium (Colace) 100 mg PO HS [facility] Last Admin: 07/11/18 21:25 Dose: 100 mg Emollient Ointment (Vaseline Oint) 1 gm TOP DAILY [facility] Last Admin: 07/12/18 09:46 Dose: 1 gm Heparin Sodium (Porcine) (Heparin) 5,000 units SC Q12 [facility] Last Admin: 07/12/18 09:46 Dose: 5,000 units Hydralazine HCl (Apresoline) 25 mg PO Q12 [facility] Last Admin: 07/12/18 09:46 Dose: 25 mg Vancomycin/Sodium Chloride (Vancomycin 1 Gm/Ns 200 Ml) 1 gm in 200 mls @ 133.333 mls/hr IVPB [facility]; Protocol Stop: 07/15/18 22:01 Cefepime HCl (Maxipime Iv 1 Gm Premix) 1 gm in 50 mls @ 100 mls/hr IVPB Q24H [facility]; Protocol Last Admin: 07/11/18 18:58 Dose: 100 mls/hr Insulin Human Regular (Novolin R) 0 unit SC ACHS [facility]; Protocol Last Admin: 07/12/18 12:22 Dose: Not Given Lactulose (Enulose) 20 gm PO Q6 [facility] Last Admin: 07/12/18 12:30 Dose: Not Given Sevelamer Carbonate (Renvela) 2,400 mg PO TIDCC [facility] Last Admin: 07/12/18 12:17 Dose: 2,400 mg Sodium Phosphate (Fleet Enema) 135 ml MA ONCE PRN PRN Reason: Constipation Last Admin: 07/12/18 12:55 Dose: 135 ml Tramadol HCl (Ultram) 50 mg PO Q6 PRN PRN Reason: Pain, moderate (4-7) Last Admin: 07/12/18 12:41 Dose: 50 mg Vitamin B Complex/Vit C/Folic Acid (Nephro-Jessy) 1 tab PO MWF [facility] Last Admin: 07/10/18 11:17 Dose: 1 tab - Labs Labs: 07/12/18 08:21 07/12/18 08:21 PT 12.5 SECONDS (9.7-12.2) H 07/09/18 21:53 INR 1.1 07/09/18 21:53 APTT 37.1 SECONDS (21-34) H 07/09/18 21:53 - Constitutional Appears: Non-toxic, Chronically Ill - Head Exam Head Exam: NORMOCEPHALIC - Eye Exam Eye Exam: EOMI, Normal appearance, PERRL Pupil Exam: NORMAL ACCOMODATION, PERRL - ENT Exam ENT Exam: Mucous Membranes Moist, Normal Exam - Neck Exam Neck Exam: Full ROM, Normal Inspection. absent: Lymphadenopathy - Respiratory Exam Respiratory Exam: Clear to Ausculation Bilateral, NORMAL BREATHING PATTERN - Cardiovascular Exam Cardiovascular Exam: REGULAR RHYTHM, +S1, +S2. absent: Murmur - GI/Abdominal Exam GI & Abdominal Exam: Distended, Hyperactive Bowel Sounds. absent: Tenderness - Rectal Exam Rectal Exam: Deferred - Exam Exam: NORMAL INSPECTION - Extremities Exam Extremities Exam: Full ROM, Normal Capillary Refill, Normal Inspection. absent: Joint Swelling, Pedal Edema - Back Exam Back Exam: NORMAL INSPECTION - Neurological Exam Neurological Exam: Alert, Awake, CN II-XII Intact, Normal Gait, Oriented x3 - Psychiatric Exam Psychiatric exam: Normal Affect, Normal Mood - Skin Skin Exam: Dry Additional comments: necrotic toes left foot same Assessment and Plan (1) Lumbar discitis Status: Acute (2) Osteomyelitis of lumbar spine Status: Acute (3) Osteomyelitis of second toe of left foot Status: Acute (4) Spinal stenosis Status: Acute (5) Complication of arteriovenous dialysis fistula Status: Acute (6) ESRD (end stage renal disease) Status: Acute (7) Secondary hyperparathyroidism Status: Acute (8) Type 2 diabetes mellitus with diabetic nephropathy Status: Acute - Assessment and Plan (Free Text) Assessment: cont wound care IV antibiotics neurolosurg follow up prognosis guarded
--- NOTE | 2018-07-13 08:19 | CP.PCM.PN ---
Subjective - Date & Time of Evaluation Date of Evaluation: 07/13/18 Time of Evaluation: 08:19 - Subjective Subjective: Pt reports feeling "ok" No new issues this AM, was able to move bowels after enema, is on Lactulose prn but does not want any other meds for constipation at this point. No fever no chills +back pain, but states is what she has been experiencing for years. Objective - Vital Signs/Intake and Output Vital Signs (last 24 hours): Temp Pulse Resp BP Pulse Ox 97.7 F 71 20 126/81 97 07/13/18 00:00 07/13/18 00:00 07/13/18 00:00 07/13/18 00:00 07/13/18 00:00 Intake and Output: 07/13/18 07/13/18 06:59 18:59 Intake Total 300 Balance 300 - Medications Medications: Current Medications Acetaminophen (Tylenol 325mg Tab) 650 mg PO Q4H PRN PRN Reason: Fever >100.4 F Last Admin: 07/12/18 16:06 Dose: 650 mg Amlodipine Besylate (Norvasc) 10 mg PO DAILY [facility] Last Admin: 07/12/18 09:46 Dose: 10 mg Cinacalcet (Sensipar) 30 mg PO DAILY [facility] Last Admin: 07/12/18 09:46 Dose: 30 mg Clonidine HCl (Catapres) 0.2 mg PO Q12H [facility] Last Admin: 07/12/18 21:26 Dose: 0.2 mg Docusate Sodium (Colace) 100 mg PO HS [facility] Last Admin: 07/12/18 21:23 Dose: 100 mg Emollient Ointment (Vaseline Oint) 1 gm TOP DAILY [facility] Last Admin: 07/12/18 09:46 Dose: 1 gm Heparin Sodium (Porcine) (Heparin) 5,000 units SC Q12 [facility] Last Admin: 07/12/18 21:23 Dose: 5,000 units Hydralazine HCl (Apresoline) 25 mg PO Q12 [facility] Last Admin: 07/12/18 21:23 Dose: 25 mg Vancomycin/Sodium Chloride (Vancomycin 1 Gm/Ns 200 Ml) 1 gm in 200 mls @ 133.333 mls/hr IVPB MWF [facility]; Protocol Stop: 07/15/18 22:01 Cefepime HCl (Maxipime Iv 1 Gm Premix) 1 gm in 50 mls @ 100 mls/hr IVPB Q24H [facility]; Protocol Last Admin: 07/12/18 17:54 Dose: 100 mls/hr Insulin Human Regular (Novolin R) 0 unit SC ACHS [facility]; Protocol Last Admin: 07/12/18 21:57 Dose: Not Given Lactulose (Enulose) 20 gm PO Q6 [facility] Last Admin: 07/13/18 05:51 Dose: 20 gm Sevelamer Carbonate (Renvela) 2,400 mg PO TIDCC [facility] Last Admin: 07/12/18 17:53 Dose: 2,400 mg Sodium Phosphate (Fleet Enema) 135 ml [place] ONCE PRN PRN Reason: Constipation Last Admin: 07/12/18 12:55 Dose: 135 ml Tramadol HCl (Ultram) 50 mg PO Q6 PRN PRN Reason: Pain, moderate (4-7) Last Admin: 07/12/18 12:41 Dose: 50 mg Vitamin B Complex/Vit C/Folic Acid (Nephro-Jessy) 1 tab PO MWF [facility] Last Admin: 07/10/18 11:17 Dose: 1 tab - Labs Labs: 07/12/18 08:21 07/12/18 08:21 PT 12.5 SECONDS (9.7-12.2) H 07/09/18 21:53 INR 1.1 07/09/18 21:53 APTT 37.1 SECONDS (21-34) H 07/09/18 21:53 - Constitutional Appears: Non-toxic, No Acute Distress - ENT Exam ENT Exam: Mucous Membranes Moist - Respiratory Exam Respiratory Exam: Clear to Ausculation Bilateral. absent: Wheezes - Cardiovascular Exam Cardiovascular Exam: REGULAR RHYTHM, RRR, +S1, +S2. absent: JVD, Rubs - Extremities Exam Extremities Exam: absent: Joint Swelling - Neurological Exam Neurological Exam: Alert, Awake, Oriented x3 Assessment and Plan - Assessment and Plan (Free Text) Assessment: 1. Diskitis on abx per ID 2. Foot osteo anbx pt has refused surgery appreciate recovery room rn input 3. renal failure cont HD 4. Bp controlled 5. constipation prn lactulose sp enema
[2018-07-13] MEDS: (Novolin R) Insulin Human Regular 100 units/ml vial SC SCH ×3 (08:30→17:39)
[2018-07-13] MEDS: Multivitamin Vitamin B Complex (Nephro-Vite) Tab PO SCH (08:52)
[2018-07-13] MEDS ORDERED: Vancomycin 1 gm/NS 200 ml 1 GM/200 ML BAG IVPB SCH ×2 (09:00→20:00)
--- NOTE | 2018-07-13 10:40 | CP.PCM.PN ---
Subjective - Date & Time of Evaluation Date of Evaluation: 07/13/18 Time of Evaluation: 10:39 - Subjective Subjective: feels same c/o various myalgias for HD today HTN controlled Hg decreased to 8.3 on IV ABs await neurosurgery eval Objective - Vital Signs/Intake and Output Vital Signs (last 24 hours): Temp Pulse Resp BP Pulse Ox 98 F 64 20 134/72 96 07/13/18 08:34 07/13/18 08:34 07/13/18 08:34 07/13/18 08:34 07/13/18 08:34 Intake and Output: 07/13/18 07/13/18 06:59 18:59 Intake Total 420 Balance 420 - Medications Medications: Current Medications Acetaminophen (Tylenol 325mg Tab) 650 mg PO Q4H PRN PRN Reason: Fever >100.4 F Last Admin: 07/12/18 16:06 Dose: 650 mg Amlodipine Besylate (Norvasc) 10 mg PO DAILY [facility] Last Admin: 07/12/18 09:46 Dose: 10 mg Cinacalcet (Sensipar) 30 mg PO DAILY [facility] Last Admin: 07/12/18 09:46 Dose: 30 mg Clonidine HCl (Catapres) 0.2 mg PO Q12H [facility] Last Admin: 07/12/18 21:26 Dose: 0.2 mg Docusate Sodium (Colace) 100 mg PO HS [facility] Last Admin: 07/12/18 21:23 Dose: 100 mg Emollient Ointment (Vaseline Oint) 1 gm TOP DAILY [facility] Last Admin: 07/12/18 09:46 Dose: 1 gm Hydralazine HCl (Apresoline) 25 mg PO Q12 [facility] Last Admin: 07/12/18 21:23 Dose: 25 mg Vancomycin/Sodium Chloride (Vancomycin 1 Gm/Ns 200 Ml) 1 gm in 200 mls @ 133.333 mls/hr IVPB MWF [facility]; Protocol Stop: 07/15/18 22:01 Cefepime HCl (Maxipime Iv 1 Gm Premix) 1 gm in 50 mls @ 100 mls/hr IVPB Q24H [facility]; Protocol Last Admin: 07/12/18 17:54 Dose: 100 mls/hr Insulin Human Regular (Novolin R) 0 unit SC ACHS [facility]; Protocol Last Admin: 07/13/18 08:30 Dose: Not Given Lactulose (Enulose) 20 gm PO Q6 [facility] Last Admin: 07/13/18 05:51 Dose: 20 gm Sevelamer Carbonate (Renvela) 2,400 mg PO TIDCC [facility] Last Admin: 07/13/18 08:52 Dose: 2,400 mg Sodium Phosphate (Fleet Enema) 135 ml [place] ONCE PRN PRN Reason: Constipation Last Admin: 07/12/18 12:55 Dose: 135 ml Tramadol HCl (Ultram) 50 mg PO Q6 PRN PRN Reason: Pain, moderate (4-7) Last Admin: 07/13/18 08:53 Dose: 50 mg Vitamin B Complex/Vit C/Folic Acid (Nephro-Jessy) 1 tab PO MWF [facility] Last Admin: 07/13/18 08:52 Dose: 1 tab - Labs Labs: 07/12/18 08:21 07/12/18 08:21 PT 12.5 SECONDS (9.7-12.2) H 07/09/18 21:53 INR 1.1 07/09/18 21:53 APTT 37.1 SECONDS (21-34) H 07/09/18 21:53 Assessment and Plan (1) Osteomyelitis of lumbar spine Status: Acute (2) Lumbar discitis Status: Acute (3) ESRD (end stage renal disease) Status: Acute (4) Secondary hyperparathyroidism Status: Acute
[2018-07-13] MEDS ORDERED: EPOETIN ALFA 10,000 UNIT/ML ML IV SCH (11:40)
[2018-07-13] MEDS: Petrolatum Oint Foilpak (5 gm) TOP SCH (11:44)
--- NOTE | 2018-07-13 13:07 | CP.PCM.PN ---
Subjective - Date & Time of Evaluation Date of Evaluation: 07/13/18 Time of Evaluation: 13:05 - Subjective Subjective: Podiatry progress Note - Dr. Bolaños 67 y/o female patient seen at bedside after consultation for left foot 2nd digit ulceration with underlying osteomyelitis and gangrenous changes of the left 1st and 2nd toes. Patient states that she doesn't have pain at the ulcer site as of now Patient denies any other pedal complaint at this time. She denies any overnight F/C/N/V/CP/SOB. Objective - Vital Signs/Intake and Output Vital Signs (last 24 hours): Temp Pulse Resp BP Pulse Ox 98 F 64 20 134/72 96 07/13/18 08:34 07/13/18 08:34 07/13/18 08:34 07/13/18 08:34 07/13/18 08:34 Intake and Output: 07/13/18 07/13/18 06:59 18:59 Intake Total 420 Balance 420 - Medications Medications: Current Medications Acetaminophen (Tylenol 325mg Tab) 650 mg PO Q4H PRN PRN Reason: Fever >100.4 F Last Admin: 07/12/18 16:06 Dose: 650 mg Amlodipine Besylate (Norvasc) 10 mg PO DAILY [facility] Last Admin: 07/13/18 11:45 Dose: Not Given Cinacalcet (Sensipar) 30 mg PO DAILY [facility] Last Admin: 07/13/18 11:43 Dose: 30 mg Clonidine HCl (Catapres) 0.2 mg PO Q12H [facility] Last Admin: 07/13/18 11:45 Dose: Not Given Docusate Sodium (Colace) 100 mg PO HS [facility] Last Admin: 07/12/18 21:23 Dose: 100 mg Emollient Ointment (Vaseline Oint) 1 gm TOP DAILY [facility] Last Admin: 07/13/18 11:44 Dose: 1 gm Epoetin Vinay (Procrit) 10,000 unit IV [facility] [place] [facility] Hydralazine HCl (Apresoline) 25 mg PO Q12 [facility] Last Admin: 07/13/18 11:45 Dose: Not Given Vancomycin/Sodium Chloride (Vancomycin 1 Gm/Ns 200 Ml) 1 gm in 200 mls @ 133.333 mls/hr IVPB [facility] [place]; Protocol Stop: 07/15/18 22:01 Cefepime HCl (Maxipime Iv 1 Gm Premix) 1 gm in 50 mls @ 100 mls/hr IVPB Q24H [facility]; Protocol Last Admin: 07/12/18 17:54 Dose: 100 mls/hr Insulin Human Regular (Novolin R) 0 unit SC ACHS [facility]; Protocol Last Admin: 07/13/18 12:30 Dose: Not Given Lactulose (Enulose) 20 gm PO Q6 [facility] Last Admin: 07/13/18 11:44 Dose: Not Given Sevelamer Carbonate (Renvela) 2,400 mg PO TIDCC [facility] Last Admin: 07/13/18 11:44 Dose: 2,400 mg Sodium Phosphate (Fleet Enema) 135 ml [place] ONCE PRN PRN Reason: Constipation Last Admin: 07/12/18 12:55 Dose: 135 ml Tramadol HCl (Ultram) 50 mg PO Q6 PRN PRN Reason: Pain, moderate (4-7) Last Admin: 07/13/18 08:53 Dose: 50 mg Vitamin B Complex/Vit C/Folic Acid (Nephro-Jessy) 1 tab PO MWF [facility] Last Admin: 07/13/18 08:52 Dose: 1 tab - Labs Labs: 07/12/18 08:21 07/12/18 08:21 PT 12.5 SECONDS (9.7-12.2) H 07/09/18 21:53 INR 1.1 07/09/18 21:53 APTT 37.1 SECONDS (21-34) H 07/09/18 21:53 - Constitutional Appears: Well, Non-toxic, No Acute Distress - Head Exam Head Exam: ATRAUMATIC, NORMOCEPHALIC - Extremities Exam Additional comments: Lower extremity focused exam: Vasc: DP/PT pulses faintly palpable 1/4 B/L. Temperature gradient warm to cool on b/l. Pedal hair growth absent Neuro: protective sensation grossly diminished Derm: open ulceration noted to 2nd digit PIPJ of left foot approx 1cm x 0.8cm x 0.3cm with 50:50 fibrotic and necrotic wound base. (+) probe to bone noted. No malodor, Positive purulence noted around the ulcer, no fluctuance. No james-wound erythema noted at present. 2nd Toe and tip[ of the 1st toe looks gangrenous with skin peeling off up to the level of 1-3 met heads. Dystrophic thickened toenails to B/L hallucal toenails noted MSK: Mild hammertoe contractures noted to lesser digits B/L. No tenderness elicited to palpation of left 1st and 2nd digits. MMT 5/5 to all groups b/l. - Neurological Exam Neurological Exam: Alert, Awake, Oriented x3 - Psychiatric Exam Psychiatric exam: Normal Affect, Normal Mood Assessment and Plan - Assessment and Plan (Free Text) Assessment: 67 y/o female patient seen at bedside after consultation for left foot 2nd digit ulceration with underlying osteomyelitis and gangrenous changes of the left 1st and 2nd toes. Plan: Patient seen and evaluated in the bedside Discussed plan with Dr. Bolaños Charts, labs and vitals reviewed: Afebrile, no leukocytosis noted Left foot x-ray ordered: cortical erosions of the 2nd toe distal phalanx consistent with OM. Wound culture: Pending. Wound site cleaned with saline, dressed with Xeroform, DSD ID onboard Dr. Gilliland, appreciate recommendations Podiatry will continue to follow patient while in house
[2018-07-13] MEDS: Epoetin Alfa 10,000 unit/ml Dialysis IV SCH (17:02)
[2018-07-13] MEDS: Cefepime IV 1 gm in Dextrose 1 GM/50 ML BAG IVPB SCH (19:00)
[2018-07-14] MEDS: (Novolin R) Insulin Human Regular 100 units/ml vial SC SCH ×3 (08:18→17:52)
--- NOTE | 2018-07-14 09:39 | CP.PCM.PN ---
Subjective - Date & Time of Evaluation Date of Evaluation: 07/14/18 Time of Evaluation: 09:40 - Subjective Subjective: bp stable afebrilecomfortable supine in bed dialysis last PM removed about 2 kg poor appetite persists ROS no chills fever no chest pain palpitations no coug no abd pain,n,v.constipated anuric intermittent back pain,no foot pain no headache dizziness Objective - Vital Signs/Intake and Output Vital Signs (last 24 hours): Temp Pulse Resp BP Pulse Ox 98.1 F 66 20 126/71 95 07/14/18 08:14 07/14/18 08:14 07/14/18 08:14 07/14/18 08:14 07/14/18 08:14 Intake and Output: 07/14/18 07/14/18 06:59 18:59 Intake Total 780 Balance 780 - Medications Medications: Current Medications Acetaminophen (Tylenol 325mg Tab) 650 mg PO Q4H PRN PRN Reason: Fever >100.4 F Last Admin: 07/12/18 16:06 Dose: 650 mg Amlodipine Besylate (Norvasc) 10 mg PO DAILY [facility] Last Admin: 07/13/18 11:45 Dose: Not Given Cinacalcet (Sensipar) 30 mg PO DAILY [facility] Last Admin: 07/13/18 11:43 Dose: 30 mg Clonidine HCl (Catapres) 0.2 mg PO Q12H [facility] Last Admin: 07/13/18 21:21 Dose: 0.2 mg Docusate Sodium (Colace) 100 mg PO HS [facility] Last Admin: 07/13/18 21:22 Dose: 100 mg Emollient Ointment (Vaseline Oint) 1 gm TOP DAILY [facility] Last Admin: 07/13/18 11:44 Dose: 1 gm Epoetin Vinay (Procrit) 10,000 unit IV MWF [facility] Last Admin: 07/13/18 17:02 Dose: 10,000 unit Heparin Sodium (Porcine) (Heparin) 5,000 units SC Q12 [facility] Hydralazine HCl (Apresoline) 25 mg PO Q12 [facility] Last Admin: 07/13/18 21:21 Dose: 25 mg Cefepime HCl (Maxipime Iv 1 Gm Premix) 1 gm in 50 mls @ 100 mls/hr IVPB Q24H [facility]; Protocol Last Admin: 07/13/18 19:00 Dose: 100 mls/hr Insulin Human Regular (Novolin R) 0 unit SC ACHS [facility]; Protocol Last Admin: 07/14/18 08:18 Dose: Not Given Lactulose (Enulose) 20 gm PO Q6 [facility] Last Admin: 07/14/18 05:20 Dose: 20 gm Sevelamer Carbonate (Renvela) 2,400 mg PO TIDCC [facility] Last Admin: 07/14/18 08:20 Dose: 2,400 mg Sodium Phosphate (Fleet Enema) 135 ml [place] ONCE PRN PRN Reason: Constipation Last Admin: 07/12/18 12:55 Dose: 135 ml Tramadol HCl (Ultram) 50 mg PO Q6 PRN PRN Reason: Pain, moderate (4-7) Last Admin: 07/14/18 05:23 Dose: 50 mg Vitamin B Complex/Vit C/Folic Acid (Nephro-Jessy) 1 tab PO MWF [facility] Last Admin: 07/13/18 08:52 Dose: 1 tab - Labs Labs: 07/12/18 08:21 07/12/18 08:21 PT 12.5 SECONDS (9.7-12.2) H 07/09/18 21:53 INR 1.1 07/09/18 21:53 APTT 37.1 SECONDS (21-34) H 07/09/18 21:53 - Constitutional Appears: Well, No Acute Distress - Head Exam Head Exam: ATRAUMATIC, NORMOCEPHALIC - ENT Exam ENT Exam: Mucous Membranes Moist - Respiratory Exam Respiratory Exam: Clear to Ausculation Bilateral, NORMAL BREATHING PATTERN - Cardiovascular Exam Cardiovascular Exam: REGULAR RHYTHM. absent: JVD - GI/Abdominal Exam GI & Abdominal Exam: Soft. absent: Distended, Tenderness - Extremities Exam Extremities Exam: absent: Calf Tenderness, Pedal Edema - Neurological Exam Neurological Exam: Alert, Awake - Psychiatric Exam Psychiatric exam: Normal Affect, Normal Mood - Skin Skin Exam: Dry, Warm Assessment and Plan (1) Osteomyelitis of lumbar spine Status: Acute (2) ESRD (end stage renal disease) Status: Acute (3) Secondary hyperparathyroidism Status: Acute (4) Type 2 diabetes mellitus with diabetic nephropathy Status: Acute - Assessment and Plan (Free Text) Plan: schedule dialysis for 07/15 orders written follow ID continue supportive care
[2018-07-14] MEDS: Petrolatum Oint Foilpak (5 gm) TOP SCH (11:00)
--- NOTE | 2018-07-14 12:11 | CP.PCM.PN ---
Subjective - Date & Time of Evaluation Date of Evaluation: 07/14/18 Time of Evaluation: 08:00 - Subjective Subjective: discussed on rounds IV rx in progress patient denies fever c/o back pain foot stable Objective - Vital Signs/Intake and Output Vital Signs (last 24 hours): Temp Pulse Resp BP Pulse Ox 98.1 F 66 20 126/71 95 07/14/18 08:14 07/14/18 08:14 07/14/18 08:14 07/14/18 08:14 07/14/18 08:14 Intake and Output: 07/14/18 07/14/18 06:59 18:59 Intake Total 780 Balance 780 - Medications Medications: Current Medications Acetaminophen (Tylenol 325mg Tab) 650 mg PO Q4H PRN PRN Reason: Fever >100.4 F Last Admin: 07/12/18 16:06 Dose: 650 mg Amlodipine Besylate (Norvasc) 10 mg PO DAILY [facility] Last Admin: 07/14/18 11:00 Dose: 10 mg Cinacalcet (Sensipar) 30 mg PO DAILY [facility] Last Admin: 07/14/18 11:00 Dose: 30 mg Clonidine HCl (Catapres) 0.2 mg PO Q12H [facility] Last Admin: 07/14/18 11:00 Dose: 0.2 mg Docusate Sodium (Colace) 100 mg PO HS [facility] Last Admin: 07/13/18 21:22 Dose: 100 mg Emollient Ointment (Vaseline Oint) 1 gm TOP DAILY [facility] Last Admin: 07/14/18 11:00 Dose: 1 gm Epoetin Vinay (Procrit) 10,000 unit IV MWF [facility] Last Admin: 07/13/18 17:02 Dose: 10,000 unit Heparin Sodium (Porcine) (Heparin) 5,000 units SC Q12 [facility] Last Admin: 07/14/18 11:00 Dose: 5,000 units Hydralazine HCl (Apresoline) 25 mg PO Q12 [facility] Last Admin: 07/14/18 11:00 Dose: 25 mg Cefepime HCl (Maxipime Iv 1 Gm Premix) 1 gm in 50 mls @ 100 mls/hr IVPB Q24H [facility]; Protocol Last Admin: 07/13/18 19:00 Dose: 100 mls/hr Insulin Human Regular (Novolin R) 0 unit SC ACHS [facility]; Protocol Last Admin: 07/14/18 08:18 Dose: Not Given Lactulose (Enulose) 20 gm PO Q6 [facility] Last Admin: 07/14/18 05:20 Dose: 20 gm Sevelamer Carbonate (Renvela) 2,400 mg PO TIDCC [facility] Last Admin: 07/14/18 08:20 Dose: 2,400 mg Sodium Phosphate (Fleet Enema) 135 ml [place] ONCE PRN PRN Reason: Constipation Last Admin: 07/12/18 12:55 Dose: 135 ml Tramadol HCl (Ultram) 50 mg PO Q6 PRN PRN Reason: Pain, moderate (4-7) Last Admin: 07/14/18 05:23 Dose: 50 mg Vitamin B Complex/Vit C/Folic Acid (Nephro-Jessy) 1 tab PO MWF [facility] Last Admin: 07/13/18 08:52 Dose: 1 tab - Labs Labs: 07/12/18 08:21 07/12/18 08:21 PT 12.5 SECONDS (9.7-12.2) H 07/09/18 21:53 INR 1.1 07/09/18 21:53 APTT 37.1 SECONDS (21-34) H 07/09/18 21:53 - Constitutional Appears: Non-toxic, Chronically Ill - Head Exam Head Exam: ATRAUMATIC, NORMAL INSPECTION, NORMOCEPHALIC - Eye Exam Eye Exam: EOMI, Normal appearance, PERRL Pupil Exam: NORMAL ACCOMODATION, PERRL - ENT Exam ENT Exam: Mucous Membranes Moist, Normal Exam - Neck Exam Neck Exam: Full ROM, Normal Inspection. absent: Lymphadenopathy - Respiratory Exam Respiratory Exam: Clear to Ausculation Bilateral, NORMAL BREATHING PATTERN - Cardiovascular Exam Cardiovascular Exam: REGULAR RHYTHM, +S1, +S2. absent: Murmur - GI/Abdominal Exam GI & Abdominal Exam: Soft, Normal Bowel Sounds. absent: Tenderness - Rectal Exam Rectal Exam: Deferred - Extremities Exam Extremities Exam: Full ROM, Pedal Edema, Tenderness. absent: Joint Swelling Additional comments: gangrenous changes to toes left foot + purulence - Back Exam Back Exam: NORMAL INSPECTION - Neurological Exam Neurological Exam: Alert, Awake, CN II-XII Intact, Normal Gait, Oriented x3 - Psychiatric Exam Psychiatric exam: Normal Affect, Normal Mood - Skin Skin Exam: Dry, Intact, Normal Color, Warm Assessment and Plan (1) Lumbar discitis Status: Acute (2) Osteomyelitis of lumbar spine Status: Acute (3) Osteomyelitis of second toe of left foot Status: Acute (4) Spinal stenosis Status: Acute (5) Complication of arteriovenous dialysis fistula Status: Acute (6) ESRD (end stage renal disease) Status: Acute (7) Secondary hyperparathyroidism Status: Acute (8) Type 2 diabetes mellitus with diabetic nephropathy Status: Acute - Assessment and Plan (Free Text) Assessment: patient is at risk for gangrene and need for BKA poor prognosis refusing digit amputation will need at least 6-8 weeks iv rx for OM spine
--- NOTE | 2018-07-14 13:15 | CP.PCM.PN ---
Subjective - Date & Time of Evaluation Date of Evaluation: 07/14/18 Time of Evaluation: 12:00 - Subjective Subjective: Podiatry Progress Note- Dr. Bolaños 67F seen and evaluated at bedsidefor left foot 2nd digit ulceration with underlying osteomyelitis and gangrenous changes of the left 1st and 2nd toes. Attending evaluated patient earlier this AM. Patient is seen resting comfortably in bed with friends at bedside visiting. Denies any pain to bilateral lower extremity. Reports pain to the lower back at night. Denies acute overnight events. Denies nausea, fever, shortness of breath, chest pain or chills. Objective - Vital Signs/Intake and Output Vital Signs (last 24 hours): Temp Pulse Resp BP Pulse Ox 98.1 F 66 20 126/71 95 07/14/18 08:14 07/14/18 08:14 07/14/18 08:14 07/14/18 08:14 07/14/18 08:14 Intake and Output: 07/14/18 07/14/18 06:59 18:59 Intake Total 780 Balance 780 - Medications Medications: Current Medications Acetaminophen (Tylenol 325mg Tab) 650 mg PO Q4H PRN PRN Reason: Fever >100.4 F Last Admin: 07/12/18 16:06 Dose: 650 mg Amlodipine Besylate (Norvasc) 10 mg PO DAILY [facility] Last Admin: 07/14/18 11:00 Dose: 10 mg Cinacalcet (Sensipar) 30 mg PO DAILY [facility] Last Admin: 07/14/18 11:00 Dose: 30 mg Clonidine HCl (Catapres) 0.2 mg PO Q12H [facility] Last Admin: 07/14/18 11:00 Dose: 0.2 mg Docusate Sodium (Colace) 100 mg PO HS [facility] Last Admin: 07/13/18 21:22 Dose: 100 mg Emollient Ointment (Vaseline Oint) 1 gm TOP DAILY [facility] Last Admin: 07/14/18 11:00 Dose: 1 gm Epoetin Vinay (Procrit) 10,000 unit IV MWF [facility] Last Admin: 07/13/18 17:02 Dose: 10,000 unit Heparin Sodium (Porcine) (Heparin) 5,000 units SC Q12 [facility] Last Admin: 07/14/18 11:00 Dose: 5,000 units Hydralazine HCl (Apresoline) 25 mg PO Q12 [facility] Last Admin: 07/14/18 11:00 Dose: 25 mg Cefepime HCl (Maxipime Iv 1 Gm Premix) 1 gm in 50 mls @ 100 mls/hr IVPB Q24H [facility]; Protocol Last Admin: 07/13/18 19:00 Dose: 100 mls/hr Insulin Human Regular (Novolin R) 0 unit SC ACHS [facility]; Protocol Last Admin: 07/14/18 12:57 Dose: Not Given Lactulose (Enulose) 20 gm PO Q6 [facility] Last Admin: 07/14/18 12:55 Dose: 20 gm Sevelamer Carbonate (Renvela) 2,400 mg PO TIDCC [facility] Last Admin: 07/14/18 12:56 Dose: 2,400 mg Sodium Phosphate (Fleet Enema) 135 ml [place] ONCE PRN PRN Reason: Constipation Last Admin: 07/12/18 12:55 Dose: 135 ml Tramadol HCl (Ultram) 50 mg PO Q6 PRN PRN Reason: Pain, moderate (4-7) Last Admin: 07/14/18 05:23 Dose: 50 mg Vitamin B Complex/Vit C/Folic Acid (Nephro-Jessy) 1 tab PO MWF [facility] Last Admin: 07/13/18 08:52 Dose: 1 tab - Labs Labs: 07/12/18 08:21 07/12/18 08:21 PT 12.5 SECONDS (9.7-12.2) H 07/09/18 21:53 INR 1.1 07/09/18 21:53 APTT 37.1 SECONDS (21-34) H 07/09/18 21:53 - Constitutional Appears: Well, Non-toxic, No Acute Distress - Extremities Exam Extremities Exam: absent: Calf Tenderness Additional comments: Lower extremity focused exam: Vasc: DP/PT pulses faintly palpable 1/4 B/L. Temperature gradient warm to cool on b/l. Pedal hair growth absent Neuro: protective sensation grossly diminished Derm: open ulceration noted to 2nd digit PIPJ of left foot approx 1cm x 0.8cm x 0.3cm with 50:50 fibrotic and necrotic wound base. (+) probe to bone noted. No malodor, Positive purulence noted around the ulcer, no fluctuance. No james-wound erythema noted at present. 2nd Toe and tip[ of the 1st toe looks gangrenous with skin peeling off up to the level of 1-3 met heads. Dystrophic thickened toenails to B/L hallucal toenails noted MSK: Mild hammertoe contractures noted to lesser digits B/L. No tenderness elicited to palpation of left 1st and 2nd digits. MMT 5/5 to all groups b/l. - Neurological Exam Neurological Exam: Alert, Awake, Normal Gait - Psychiatric Exam Psychiatric exam: Normal Affect, Normal Mood Assessment and Plan - Assessment and Plan (Free Text) Assessment: 67 y/o female patient seen at bedside after consultation for left foot 2nd digit ulceration with underlying osteomyelitis and gangrenous changes of the left 1st and 2nd toes. Plan: Patient seen and evaluated Discussed plan with Dr. Bolaños Charts, labs and vitals reviewed: Afebrile, no leukocytosis noted Left foot x-ray ordered: cortical erosions of the 2nd toe distal phalanx consistent with OM. Wound culture: no growth Wound site cleaned with saline, dressed with Xeroform, DSD ID onboard Dr. Gilliland, appreciate recommendations Podiatry will continue to provide local wound care during this hospital stay No surgical invention during this hospital stay since patient is refusing amputation Upon discharge, patient to follow up with Dr. Bolaños in his office within 1 week Keep dressing clean, dry and intact until seen by Dr. Bolaños in his office If dressing gets wet/dirty, gently clean with soap and water and cover with light dsd and cling. Podiatry will continue to follow patient while in house
[2018-07-14] MEDS: Cefepime IV 1 gm in Dextrose 1 GM/50 ML BAG IVPB SCH (17:45)
--- NOTE | 2018-07-14 18:54 | CP.PCM.PN ---
Subjective - Date & Time of Evaluation Date of Evaluation: 07/14/18 Time of Evaluation: 08:00 - Subjective Subjective: PT reports feeling same +unchaged in back discomfort no chest pain or sob Objective - Vital Signs/Intake and Output Vital Signs (last 24 hours): Temp Pulse Resp BP Pulse Ox 97.9 F 68 20 124/69 98 07/14/18 16:00 07/14/18 16:00 07/14/18 16:00 07/14/18 16:00 07/14/18 16:00 Intake and Output: 07/14/18 07/14/18 06:59 18:59 Intake Total 780 400 Balance 780 400 - Medications Medications: Current Medications Acetaminophen (Tylenol 325mg Tab) 650 mg PO Q4H PRN PRN Reason: Fever >100.4 F Last Admin: 07/12/18 16:06 Dose: 650 mg Amlodipine Besylate (Norvasc) 10 mg PO DAILY [facility] Last Admin: 07/14/18 11:00 Dose: 10 mg Cinacalcet (Sensipar) 30 mg PO DAILY [facility] Last Admin: 07/14/18 11:00 Dose: 30 mg Clonidine HCl (Catapres) 0.2 mg PO Q12H [facility] Last Admin: 07/14/18 11:00 Dose: 0.2 mg Docusate Sodium (Colace) 100 mg PO HS [facility] Last Admin: 07/13/18 21:22 Dose: 100 mg Emollient Ointment (Vaseline Oint) 1 gm TOP DAILY [facility] Last Admin: 07/14/18 11:00 Dose: 1 gm Epoetin Vinay (Procrit) 10,000 unit IV MWF [facility] Last Admin: 07/13/18 17:02 Dose: 10,000 unit Heparin Sodium (Porcine) (Heparin) 5,000 units SC Q12 [facility] Last Admin: 07/14/18 11:00 Dose: 5,000 units Hydralazine HCl (Apresoline) 25 mg PO Q12 [facility] Last Admin: 07/14/18 11:00 Dose: 25 mg Cefepime HCl (Maxipime Iv 1 Gm Premix) 1 gm in 50 mls @ 100 mls/hr IVPB Q24H [facility]; Protocol Last Admin: 07/14/18 17:45 Dose: 100 mls/hr Vancomycin HCl 500 mg/ Sodium (Chloride) 100 mls @ 100 mls/hr IVPB [facility] [place]; Protocol Insulin Human Regular (Novolin R) 0 unit SC ACHS [facility]; Protocol Last Admin: 07/14/18 17:52 Dose: Not Given Lactulose (Enulose) 20 gm PO Q6 [facility] Last Admin: 07/14/18 17:43 Dose: 20 gm Ondansetron HCl (Zofran Inj) 4 mg IVP Q4 PRN PRN Reason: Nausea/Vomiting Last Admin: 07/14/18 17:42 Dose: 4 mg Sevelamer Carbonate (Renvela) 2,400 mg PO TIDCC [facility] Last Admin: 07/14/18 17:43 Dose: 2,400 mg Sodium Phosphate (Fleet Enema) 135 ml [place] ONCE PRN PRN Reason: Constipation Last Admin: 07/12/18 12:55 Dose: 135 ml Tramadol HCl (Ultram) 50 mg PO Q6 PRN PRN Reason: Pain, moderate (4-7) Last Admin: 07/14/18 14:26 Dose: 50 mg Vitamin B Complex/Vit C/Folic Acid (Nephro-Jessy) 1 tab PO [facility] [place] Last Admin: 07/13/18 08:52 Dose: 1 tab - Labs Labs: 07/12/18 08:21 07/12/18 08:21 PT 12.5 SECONDS (9.7-12.2) H 07/09/18 21:53 INR 1.1 07/09/18 21:53 APTT 37.1 SECONDS (21-34) H 07/09/18 21:53 - Constitutional Appears: Non-toxic - Eye Exam Eye Exam: Normal appearance - ENT Exam ENT Exam: Mucous Membranes Moist - Respiratory Exam Respiratory Exam: Clear to Ausculation Bilateral - Cardiovascular Exam Cardiovascular Exam: REGULAR RHYTHM, RRR, +S1, +S2. absent: JVD - GI/Abdominal Exam GI & Abdominal Exam: Soft, Normal Bowel Sounds. absent: Tenderness Assessment and Plan - Assessment and Plan (Free Text) Assessment: 1. Discitis 2. toe osteo 3. renal failure 4 anemia 5. HTN abx per ID will need 6 weeks abx
[2018-07-15 07:41] LABS: HEMOGLOBIN 8.1 g/dL (11.0-16.0); MEAN CELL VOLUME 88.5 fL (81.0-99.0); MEAN CORPUSCULAR HEMOGLOBIN 30.5 pg (27.0-31.0); MEAN CORPUSCULAR HGB CONC 34.4 g/dL (33.0-37.0); MEAN PLATELET VOLUME 8.1 fL (7.2-11.7); RBC 2.67 Mil/uL (3.80-5.20); RED CELL DISTRIBUTION WIDTH 19.8 % (11.5-14.5); WHITE BLOOD COUNT 8.1 K/uL (4.8-10.8)
[2018-07-15] MEDS: (Novolin R) Insulin Human Regular 100 units/ml vial SC SCH ×4 (08:11→22:11)
[2018-07-15 08:16] LABS: CALCIUM 10.4 mg/dl (8.6-10.4)
[2018-07-15] MEDS ORDERED: EPOETIN ALFA 10,000 UNIT/ML ML IV SCH (09:00)
[2018-07-15] MEDS: Epoetin Alfa 10,000 unit/ml Dialysis IV SCH (10:48)
[2018-07-15] MEDS: Multivitamin Vitamin B Complex (Nephro-Vite) Tab PO SCH ×2 (11:00→14:30)
[2018-07-15] MEDS: Petrolatum Oint Foilpak (5 gm) TOP SCH ×2 (11:00→14:30)
--- NOTE | 2018-07-15 13:46 | CP.PCM.PN ---
Subjective - Date & Time of Evaluation Date of Evaluation: 07/15/18 Time of Evaluation: 13:43 - Subjective Subjective: seen at dialysis to UF 2400ml afebrile Hg decreased to 8.1- on EPO; Fe stores adequate on IV ABs for osteo tring to encourage amputation for osteo rx same lethargy, no new complaint Objective - Vital Signs/Intake and Output Vital Signs (last 24 hours): Temp Pulse Resp BP Pulse Ox 97.8 F 76 18 139/65 99 07/15/18 12:55 07/15/18 12:55 07/15/18 12:55 07/15/18 12:55 07/15/18 12:55 Intake and Output: 07/15/18 07/15/18 06:59 18:59 Intake Total 800 Balance 800 - Medications Medications: Current Medications Acetaminophen (Tylenol 325mg Tab) 650 mg PO Q4H PRN PRN Reason: Fever >100.4 F Last Admin: 07/12/18 16:06 Dose: 650 mg Amlodipine Besylate (Norvasc) 10 mg PO DAILY [facility] Last Admin: 07/15/18 11:00 Dose: Not Given Cinacalcet (Sensipar) 30 mg PO DAILY [facility] Last Admin: 07/15/18 11:00 Dose: Not Given Clonidine HCl (Catapres) 0.2 mg PO Q12H [facility] Last Admin: 07/15/18 10:59 Dose: Not Given Docusate Sodium (Colace) 100 mg PO HS [facility] Last Admin: 07/14/18 21:44 Dose: 100 mg Emollient Ointment (Vaseline Oint) 1 gm TOP DAILY [facility] Last Admin: 07/15/18 11:00 Dose: Not Given Epoetin Vinay (Procrit) 10,000 unit IV MWF [facility] Last Admin: 07/15/18 10:48 Dose: 10,000 unit Heparin Sodium (Porcine) (Heparin) 5,000 units SC Q12 [facility] Last Admin: 07/15/18 10:59 Dose: Not Given Hydralazine HCl (Apresoline) 25 mg PO Q12 [facility] Last Admin: 07/15/18 10:59 Dose: Not Given Cefepime HCl (Maxipime Iv 1 Gm Premix) 1 gm in 50 mls @ 100 mls/hr IVPB Q24H [facility]; Protocol Last Admin: 07/14/18 17:45 Dose: 100 mls/hr Vancomycin HCl 500 mg/ Sodium (Chloride) 100 mls @ 100 mls/hr IVPB [facility] [place]; Protocol Insulin Human Regular (Novolin R) 0 unit SC ACHS [facility]; Protocol Last Admin: 07/15/18 08:11 Dose: Not Given Lactulose (Enulose) 20 gm PO Q6 [facility] Last Admin: 07/15/18 06:13 Dose: 20 gm Ondansetron HCl (Zofran Inj) 4 mg IVP Q4 PRN PRN Reason: Nausea/Vomiting Last Admin: 07/14/18 17:42 Dose: 4 mg Sevelamer Carbonate (Renvela) 2,400 mg PO TIDCC [facility] Last Admin: 07/15/18 08:23 Dose: 2,400 mg Sodium Phosphate (Fleet Enema) 135 ml [place] ONCE PRN PRN Reason: Constipation Last Admin: 07/12/18 12:55 Dose: 135 ml Tramadol HCl (Ultram) 50 mg PO Q6 PRN PRN Reason: Pain, moderate (4-7) Last Admin: 07/14/18 21:41 Dose: 50 mg Vitamin B Complex/Vit C/Folic Acid (Nephro-Jessy) 1 tab PO [facility] [place] Last Admin: 07/15/18 11:00 Dose: Not Given - Labs Labs: 07/15/18 07:28 07/15/18 07:28 PT 12.5 SECONDS (9.7-12.2) H 07/09/18 21:53 INR 1.1 07/09/18 21:53 APTT 37.1 SECONDS (21-34) H 07/09/18 21:53 - Constitutional Appears: No Acute Distress, Chronically Ill - Head Exam Head Exam: ATRAUMATIC, NORMAL INSPECTION - Eye Exam Eye Exam: EOMI, Normal appearance - Neck Exam Neck Exam: Normal Inspection. absent: Tenderness - Respiratory Exam Respiratory Exam: Clear to Ausculation Bilateral, NORMAL BREATHING PATTERN - Cardiovascular Exam Cardiovascular Exam: REGULAR RHYTHM, +S1 - GI/Abdominal Exam GI & Abdominal Exam: Soft. absent: Tenderness - Extremities Exam Extremities Exam: Normal Inspection. absent: Tenderness - Neurological Exam Neurological Exam: Awake, CN II-XII Intact - Skin Skin Exam: Dry, Warm Assessment and Plan (1) Osteomyelitis of lumbar spine Status: Acute (2) Lumbar discitis Status: Acute (3) ESRD (end stage renal disease) Status: Acute (4) Secondary hyperparathyroidism Status: Acute - Assessment and Plan (Free Text) Plan: IV ABs dialysis MWF considering LE surgery
--- NOTE | 2018-07-15 16:49 | CP.PCM.PN ---
Subjective - Date & Time of Evaluation Date of Evaluation: 07/15/18 Time of Evaluation: 08:00 - Subjective Subjective: refusing amp of digit still has drainage seen on HD in NAD iv rx in progress Objective - Vital Signs/Intake and Output Vital Signs (last 24 hours): Temp Pulse Resp BP Pulse Ox 97.8 F 76 18 139/65 99 07/15/18 12:55 07/15/18 12:55 07/15/18 12:55 07/15/18 12:55 07/15/18 12:55 Intake and Output: 07/15/18 07/15/18 06:59 18:59 Intake Total 800 400 Balance 800 400 - Medications Medications: Current Medications Acetaminophen (Tylenol 325mg Tab) 650 mg PO Q4H PRN PRN Reason: Fever >100.4 F Last Admin: 07/12/18 16:06 Dose: 650 mg Amlodipine Besylate (Norvasc) 10 mg PO DAILY [facility] Last Admin: 07/15/18 14:30 Dose: 10 mg Cinacalcet (Sensipar) 30 mg PO DAILY [facility] Last Admin: 07/15/18 14:30 Dose: 30 mg Clonidine HCl (Catapres) 0.2 mg PO Q12H [facility] Last Admin: 07/15/18 10:59 Dose: Not Given Docusate Sodium (Colace) 100 mg PO HS [facility] Last Admin: 07/14/18 21:44 Dose: 100 mg Emollient Ointment (Vaseline Oint) 1 gm TOP DAILY [facility] Last Admin: 07/15/18 14:30 Dose: 1 gm Epoetin Vinay (Procrit) 10,000 unit IV MWF [facility] Last Admin: 07/15/18 10:48 Dose: 10,000 unit Heparin Sodium (Porcine) (Heparin) 5,000 units SC Q12 [facility] Last Admin: 07/15/18 10:59 Dose: Not Given Hydralazine HCl (Apresoline) 25 mg PO Q12 [facility] Last Admin: 07/15/18 10:59 Dose: Not Given Cefepime HCl (Maxipime Iv 1 Gm Premix) 1 gm in 50 mls @ 100 mls/hr IVPB Q24H [facility]; Protocol Last Admin: 07/14/18 17:45 Dose: 100 mls/hr Ceftazidime 1 gm/ Sodium (Chloride) 50 mls @ 100 mls/hr IV MWF [facility]; Protocol Insulin Human Regular (Novolin R) 0 unit SC ACHS [facility]; Protocol Last Admin: 07/15/18 14:22 Dose: Not Given Lactulose (Enulose) 20 gm PO Q6 [facility] Last Admin: 07/15/18 14:22 Dose: Not Given Ondansetron HCl (Zofran Inj) 4 mg IVP Q4 PRN PRN Reason: Nausea/Vomiting Last Admin: 07/14/18 17:42 Dose: 4 mg Sevelamer Carbonate (Renvela) 2,400 mg PO TIDCC [facility] Last Admin: 07/15/18 14:18 Dose: 2,400 mg Sodium Phosphate (Fleet Enema) 135 ml [place] ONCE PRN PRN Reason: Constipation Last Admin: 07/12/18 12:55 Dose: 135 ml Tramadol HCl (Ultram) 50 mg PO Q6 PRN PRN Reason: Pain, moderate (4-7) Last Admin: 07/15/18 14:17 Dose: 50 mg Vitamin B Complex/Vit C/Folic Acid (Nephro-Jessy) 1 tab PO MWF [facility] Last Admin: 07/15/18 14:30 Dose: 1 tab - Labs Labs: 07/15/18 07:28 07/15/18 07:28 PT 12.5 SECONDS (9.7-12.2) H 07/09/18 21:53 INR 1.1 07/09/18 21:53 APTT 37.1 SECONDS (21-34) H 07/09/18 21:53 - Constitutional Appears: Non-toxic, No Acute Distress, Chronically Ill - Head Exam Head Exam: ATRAUMATIC, NORMAL INSPECTION, NORMOCEPHALIC - Eye Exam Eye Exam: EOMI, Normal appearance, PERRL Pupil Exam: NORMAL ACCOMODATION, PERRL - ENT Exam ENT Exam: Mucous Membranes Moist, Normal Exam - Neck Exam Neck Exam: Full ROM, Normal Inspection. absent: Lymphadenopathy - Respiratory Exam Respiratory Exam: Clear to Ausculation Bilateral, NORMAL BREATHING PATTERN - Cardiovascular Exam Cardiovascular Exam: REGULAR RHYTHM, +S1, +S2. absent: Murmur - GI/Abdominal Exam GI & Abdominal Exam: Soft, Normal Bowel Sounds. absent: Tenderness - Rectal Exam Rectal Exam: Deferred - Exam Exam: NORMAL INSPECTION - Extremities Exam Extremities Exam: Full ROM, Normal Capillary Refill, Normal Inspection. absent: Joint Swelling, Pedal Edema - Back Exam Back Exam: NORMAL INSPECTION - Neurological Exam Neurological Exam: Alert, Awake, CN II-XII Intact, Oriented x3. absent: Normal Gait - Psychiatric Exam Psychiatric exam: Depressed - Skin Skin Exam: Dry. absent: Intact, Normal Color Additional comments: necrotic toes left 1st and second with pus from second toe despite weeks of therapy Assessment and Plan (1) Lumbar discitis Status: Acute (2) Osteomyelitis of lumbar spine Status: Acute (3) Osteomyelitis of second toe of left foot Status: Acute (4) Spinal stenosis Status: Acute (5) Complication of arteriovenous dialysis fistula Status: Acute (6) ESRD (end stage renal disease) Status: Acute (7) Secondary hyperparathyroidism Status: Acute (8) Type 2 diabetes mellitus with diabetic nephropathy Status: Acute - Assessment and Plan (Free Text) Assessment: gangrene left foot with OM left 2nd digit in need of amputation 'discitis L2L3 - on IV rx at risk for other metastatic infections poor prognosis
[2018-07-15 16:53] VITALS: RESP 20
--- NOTE | 2018-07-15 17:04 | CP.PCM.PN ---
Subjective - Date & Time of Evaluation Date of Evaluation: 07/15/18 Time of Evaluation: 17:06 - Subjective Subjective: Pt states she feels about the same. Mild back pain per patient but otherwise comfortable. Pt still reluctant to have toe amputated, although she has gotten feed back that she can become septic and have significant infection that can endanger her life. I talked to her about it today again but she states she is waiting for a miracle. Objective - Vital Signs/Intake and Output Vital Signs (last 24 hours): Temp Pulse Resp BP Pulse Ox 97.4 F L 71 20 100/61 97 07/15/18 16:00 07/15/18 16:00 07/15/18 16:00 07/15/18 16:00 07/15/18 16:00 Intake and Output: 07/15/18 07/15/18 06:59 18:59 Intake Total 800 400 Balance 800 400 - Medications Medications: Current Medications Acetaminophen (Tylenol 325mg Tab) 650 mg PO Q4H PRN PRN Reason: Fever >100.4 F Last Admin: 07/12/18 16:06 Dose: 650 mg Amlodipine Besylate (Norvasc) 10 mg PO DAILY [facility] Last Admin: 07/15/18 14:30 Dose: 10 mg Cinacalcet (Sensipar) 30 mg PO DAILY [facility] Last Admin: 07/15/18 14:30 Dose: 30 mg Clonidine HCl (Catapres) 0.2 mg PO Q12H [facility] Last Admin: 07/15/18 10:59 Dose: Not Given Docusate Sodium (Colace) 100 mg PO HS [facility] Last Admin: 07/14/18 21:44 Dose: 100 mg Emollient Ointment (Vaseline Oint) 1 gm TOP DAILY [facility] Last Admin: 07/15/18 14:30 Dose: 1 gm Epoetin Vinay (Procrit) 10,000 unit IV MWF [facility] Last Admin: 07/15/18 10:48 Dose: 10,000 unit Heparin Sodium (Porcine) (Heparin) 5,000 units SC Q12 [facility] Last Admin: 07/15/18 10:59 Dose: Not Given Hydralazine HCl (Apresoline) 25 mg PO Q12 [facility] Last Admin: 07/15/18 10:59 Dose: Not Given Ceftazidime 1 gm/ Sodium (Chloride) 50 mls @ 100 mls/hr IV MWF [facility]; Protocol Insulin Human Regular (Novolin R) 0 unit SC ACHS [facility]; Protocol Last Admin: 07/15/18 14:22 Dose: Not Given Lactulose (Enulose) 20 gm PO Q6 [facility] Last Admin: 07/15/18 14:22 Dose: Not Given Ondansetron HCl (Zofran Inj) 4 mg IVP Q4 PRN PRN Reason: Nausea/Vomiting Last Admin: 07/14/18 17:42 Dose: 4 mg Sevelamer Carbonate (Renvela) 2,400 mg PO TIDCC [facility] Last Admin: 07/15/18 14:18 Dose: 2,400 mg Sodium Phosphate (Fleet Enema) 135 ml [place] ONCE PRN PRN Reason: Constipation Last Admin: 07/12/18 12:55 Dose: 135 ml Tramadol HCl (Ultram) 50 mg PO Q6 PRN PRN Reason: Pain, moderate (4-7) Last Admin: 07/15/18 14:17 Dose: 50 mg Vitamin B Complex/Vit C/Folic Acid (Nephro-Jessy) 1 tab PO MWF [facility] Last Admin: 07/15/18 14:30 Dose: 1 tab - Labs Labs: 07/15/18 07:28 07/15/18 07:28 PT 12.5 SECONDS (9.7-12.2) H 07/09/18 21:53 INR 1.1 07/09/18 21:53 APTT 37.1 SECONDS (21-34) H 07/09/18 21:53 - Constitutional Appears: Non-toxic - Eye Exam Eye Exam: Normal appearance - ENT Exam ENT Exam: Mucous Membranes Moist - Respiratory Exam Respiratory Exam: Clear to Ausculation Bilateral - Cardiovascular Exam Cardiovascular Exam: RRR, +S1, +S2. absent: JVD - GI/Abdominal Exam GI & Abdominal Exam: Soft, Normal Bowel Sounds. absent: Tenderness - Extremities Exam Extremities Exam: absent: Calf Tenderness Assessment and Plan - Assessment and Plan (Free Text) Assessment: 1. Gangrenous toe 2. Discitis 3. renal failure 4. anemia of chronic disease 5. HTn Continue to monitor labs, vitals Id recommeded abx for 6 more weeks pt aware of recommendations to amputate toes Will honor her wishes and continue to treat infection as per ID
[2018-07-15] MEDS ORDERED: cefTAZidime 1 GM in Sodium Chloride 0.9% 50 ML IV SCH (20:00)
[2018-07-16] MEDS: (Novolin R) Insulin Human Regular 100 units/ml vial SC SCH ×4 (08:05→22:18)
--- NOTE | 2018-07-16 09:47 | CP.PCM.PN ---
Subjective - Date & Time of Evaluation Date of Evaluation: 07/16/18 Time of Evaluation: 09:45 - Subjective Subjective: stable dialysis 07/15 on IV fortaz- MWF, no need for PICC refusing amputation otherwise with back pains, same other pains Objective - Vital Signs/Intake and Output Vital Signs (last 24 hours): Temp Pulse Resp BP Pulse Ox 97.6 F 71 20 124/66 96 07/16/18 08:08 07/16/18 08:08 07/16/18 08:08 07/16/18 08:08 07/16/18 08:08 Intake and Output: 07/16/18 07/16/18 06:59 18:59 Intake Total 690 Balance 690 - Medications Medications: Current Medications Acetaminophen (Tylenol 325mg Tab) 650 mg PO Q4H PRN PRN Reason: Fever >100.4 F Last Admin: 07/15/18 17:55 Dose: 650 mg Amlodipine Besylate (Norvasc) 10 mg PO DAILY [facility] Last Admin: 07/15/18 14:30 Dose: 10 mg Cinacalcet (Sensipar) 30 mg PO DAILY [facility] Last Admin: 07/15/18 14:30 Dose: 30 mg Clonidine HCl (Catapres) 0.2 mg PO Q12H [facility] Last Admin: 07/15/18 22:11 Dose: 0.2 mg Docusate Sodium (Colace) 100 mg PO HS [facility] Last Admin: 07/15/18 22:09 Dose: 100 mg Emollient Ointment (Vaseline Oint) 1 gm TOP DAILY [facility] Last Admin: 07/15/18 14:30 Dose: 1 gm Epoetin Vinay (Procrit) 10,000 unit IV MWF [facility] Last Admin: 07/15/18 10:48 Dose: 10,000 unit Heparin Sodium (Porcine) (Heparin) 5,000 units SC Q12 [facility] Last Admin: 07/15/18 22:09 Dose: 5,000 units Hydralazine HCl (Apresoline) 25 mg PO Q12 [facility] Last Admin: 07/15/18 22:11 Dose: 25 mg Ceftazidime 1 gm/ Sodium (Chloride) 50 mls @ 100 mls/hr IV MWF [facility]; Protocol Last Admin: 07/15/18 20:54 Dose: 100 mls/hr Insulin Human Regular (Novolin R) 0 unit SC [facility]; Protocol Last Admin: 07/16/18 08:05 Dose: Not Given Lactulose (Enulose) 20 gm PO Q6 [facility] Last Admin: 07/16/18 05:55 Dose: Not Given Ondansetron HCl (Zofran Inj) 4 mg IVP Q4 PRN PRN Reason: Nausea/Vomiting Last Admin: 07/14/18 17:42 Dose: 4 mg Sevelamer Carbonate (Renvela) 2,400 mg PO TIDCC [facility] Last Admin: 07/16/18 08:29 Dose: 2,400 mg Sodium Phosphate (Fleet Enema) 135 ml [place] ONCE PRN PRN Reason: Constipation Last Admin: 07/12/18 12:55 Dose: 135 ml Tramadol HCl (Ultram) 50 mg PO Q6 PRN PRN Reason: Pain, moderate (4-7) Last Admin: 07/16/18 08:29 Dose: 50 mg Vitamin B Complex/Vit C/Folic Acid (Nephro-Jessy) 1 tab PO MWF [facility] Last Admin: 07/15/18 14:30 Dose: 1 tab - Labs Labs: 07/15/18 07:28 07/15/18 07:28 PT 12.5 SECONDS (9.7-12.2) H 07/09/18 21:53 INR 1.1 07/09/18 21:53 APTT 37.1 SECONDS (21-34) H 07/09/18 21:53 - Constitutional Appears: No Acute Distress, Chronically Ill - Head Exam Head Exam: ATRAUMATIC, NORMAL INSPECTION - Eye Exam Eye Exam: EOMI, Normal appearance - Neck Exam Neck Exam: Normal Inspection. absent: Tenderness - Respiratory Exam Respiratory Exam: Clear to Ausculation Bilateral, NORMAL BREATHING PATTERN - Cardiovascular Exam Cardiovascular Exam: REGULAR RHYTHM, +S1 - GI/Abdominal Exam GI & Abdominal Exam: Soft. absent: Tenderness - Extremities Exam Extremities Exam: Normal Inspection. absent: Tenderness - Neurological Exam Neurological Exam: Awake, CN II-XII Intact - Skin Skin Exam: Dry, Warm Assessment and Plan (1) Osteomyelitis of lumbar spine Status: Acute (2) Lumbar discitis Status: Acute (3) ESRD (end stage renal disease) Status: Acute (4) Secondary hyperparathyroidism Status: Acute - Assessment and Plan (Free Text) Plan: dialysis MWF IV fortaz wound care
[2018-07-16] MEDS: Petrolatum Oint Foilpak (5 gm) TOP SCH (10:09)
--- NOTE | 2018-07-16 14:53 | CP.PCM.PN ---
Subjective - Date & Time of Evaluation Date of Evaluation: 07/16/18 Time of Evaluation: 12:00 - Subjective Subjective: Podiatry Progress Note- Dr. Bolaños 67F seen and evaluated at bedsidefor left foot 2nd digit ulceration with underlying osteomyelitis and gangrenous changes of the left 1st and 2nd toes. Patient is seen resting comfortably in bed with Denies any pain to bilateral lower extremity. Reports pain to the lower back at night. Denies acute overnight events. Denies nausea, fever, shortness of breath, chest pain or chills. Objective - Vital Signs/Intake and Output Vital Signs (last 24 hours): Temp Pulse Resp BP Pulse Ox 97.6 F 71 20 124/66 96 07/16/18 08:08 07/16/18 08:08 07/16/18 08:08 07/16/18 08:08 07/16/18 08:08 Intake and Output: 07/16/18 07/16/18 06:59 18:59 Intake Total 690 Balance 690 - Medications Medications: Current Medications Acetaminophen (Tylenol 325mg Tab) 650 mg PO Q4H PRN PRN Reason: Fever >100.4 F Last Admin: 07/16/18 10:25 Dose: 650 mg Amlodipine Besylate (Norvasc) 10 mg PO DAILY [facility] Last Admin: 07/16/18 10:09 Dose: 10 mg Cinacalcet (Sensipar) 30 mg PO DAILY [facility] Last Admin: 07/16/18 10:09 Dose: 30 mg Clonidine HCl (Catapres) 0.2 mg PO Q12H [facility] Last Admin: 07/16/18 10:09 Dose: 0.2 mg Docusate Sodium (Colace) 100 mg PO HS [facility] Last Admin: 07/15/18 22:09 Dose: 100 mg Emollient Ointment (Vaseline Oint) 1 gm TOP DAILY [facility] Last Admin: 07/16/18 10:09 Dose: 1 gm Epoetin Vinay (Procrit) 10,000 unit IV MWF [facility] Last Admin: 07/15/18 10:48 Dose: 10,000 unit Heparin Sodium (Porcine) (Heparin) 5,000 units SC Q12 [facility] Last Admin: 07/16/18 10:09 Dose: 5,000 units Hydralazine HCl (Apresoline) 25 mg PO Q12 [facility] Last Admin: 07/16/18 10:08 Dose: 25 mg Ceftazidime 1 gm/ Sodium (Chloride) 50 mls @ 100 mls/hr IV MWF [facility]; Protocol Last Admin: 07/15/18 20:54 Dose: 100 mls/hr Insulin Human Regular (Novolin R) 0 unit SC ACHS [facility]; Protocol Last Admin: 07/16/18 12:30 Dose: Not Given Lactulose (Enulose) 20 gm PO Q6 [facility] Last Admin: 07/16/18 12:44 Dose: 20 gm Ondansetron HCl (Zofran Inj) 4 mg IVP Q4 PRN PRN Reason: Nausea/Vomiting Last Admin: 07/14/18 17:42 Dose: 4 mg Sevelamer Carbonate (Renvela) 2,400 mg PO TIDCC [facility] Last Admin: 07/16/18 12:45 Dose: 2,400 mg Sodium Phosphate (Fleet Enema) 135 ml [place] ONCE PRN PRN Reason: Constipation Last Admin: 07/12/18 12:55 Dose: 135 ml Tramadol HCl (Ultram) 50 mg PO Q6 PRN PRN Reason: Pain, moderate (4-7) Last Admin: 07/16/18 08:29 Dose: 50 mg Vitamin B Complex/Vit C/Folic Acid (Nephro-Jessy) 1 tab PO MWF [facility] Last Admin: 07/15/18 14:30 Dose: 1 tab - Labs Labs: 07/15/18 07:28 07/15/18 07:28 PT 12.5 SECONDS (9.7-12.2) H 07/09/18 21:53 INR 1.1 07/09/18 21:53 APTT 37.1 SECONDS (21-34) H 07/09/18 21:53 - Constitutional Appears: Well, Non-toxic, No Acute Distress - Extremities Exam Extremities Exam: absent: Calf Tenderness Additional comments: Lower extremity focused exam: Vasc: DP/PT pulses faintly palpable 1/4 B/L. Temperature gradient warm to cool on b/l. Pedal hair growth absent Neuro: protective sensation grossly diminished Derm: open ulceration noted to 2nd digit PIPJ of left foot approx 1cm x 0.8cm x 0.3cm with 50:50 fibrotic and necrotic wound base. (+) probe to bone noted. No malodor, Positive purulence noted around the ulcer, no fluctuance. No james-wound erythema noted at present. 2nd Toe and tip[ of the 1st toe looks gangrenous with skin peeling off up to the level of 1-3 met heads. Dystrophic thickened toenails to B/L hallucal toenails noted MSK: Mild hammertoe contractures noted to lesser digits B/L. No tenderness elicited to palpation of left 1st and 2nd digits. MMT 5/5 to all groups b/l. Assessment and Plan - Assessment and Plan (Free Text) Assessment: 67 y/o female patient seen at bedside after consultation for left foot 2nd digit ulceration with underlying osteomyelitis and gangrenous changes of the left 1st and 2nd toes. Plan: Patient seen and evaluated Discussed plan with Dr. Bolaños Charts, labs and vitals reviewed: Afebrile, no leukocytosis noted Left foot x-ray ordered: cortical erosions of the 2nd toe distal phalanx consistent with OM. Wound culture: no growth Wound site cleaned with saline, dressed with Xeroform, DSD ID onboard Dr. Gilliland, appreciate recommendations Podiatry will continue to provide local wound care during this hospital stay No surgical invention during this hospital stay since patient is refusing amputation Upon discharge, patient to follow up with Dr. Bolaños in his office within 1 week Keep dressing clean, dry and intact until seen by Dr. Bolaños in his office If dressing gets wet/dirty, gently clean with soap and water and cover with light dsd and cling. Podiatry will continue to follow patient while in house
[2018-07-16 15:52] VITALS: TEMP 98.5
--- NOTE | 2018-07-16 17:51 | CP.PCM.PN ---
Subjective - Date & Time of Evaluation Date of Evaluation: 07/16/18 Time of Evaluation: 08:00 - Subjective Subjective: seen on rounds 'iv antibiotics not covered by [facility] need to switcht to Vanco/ Genta/ Cipro refuses surgery but wants to get better advised of risks May need TMA or BKA if infection spreads discitis likely the reult of metastatic infection and or access site infection 'poor prognosis ' discussed with Dr Trejo and Dr Brand Objective - Vital Signs/Intake and Output Vital Signs (last 24 hours): Temp Pulse Resp BP Pulse Ox 98.5 F 69 20 107/66 98 07/16/18 15:51 07/16/18 15:51 07/16/18 15:51 07/16/18 15:51 07/16/18 15:51 Intake and Output: 07/16/18 07/16/18 06:59 18:59 Intake Total 690 400 Balance 690 400 - Medications Medications: Current Medications Acetaminophen (Tylenol 325mg Tab) 650 mg PO Q4H PRN PRN Reason: Fever >100.4 F Last Admin: 07/16/18 10:25 Dose: 650 mg Amlodipine Besylate (Norvasc) 10 mg PO DAILY [facility] Last Admin: 07/16/18 10:09 Dose: 10 mg Cinacalcet (Sensipar) 30 mg PO DAILY [facility] Last Admin: 07/16/18 10:09 Dose: 30 mg Ciprofloxacin (Cipro) 500 mg PO DAILY [facility]; Protocol Clonidine HCl (Catapres) 0.2 mg PO Q12H [facility] Last Admin: 07/16/18 10:09 Dose: 0.2 mg Docusate Sodium (Colace) 100 mg PO HS [facility] Last Admin: 07/15/18 22:09 Dose: 100 mg Emollient Ointment (Vaseline Oint) 1 gm TOP DAILY [facility] Last Admin: 07/16/18 10:09 Dose: 1 gm Epoetin Vinay (Procrit) 10,000 unit IV MWF [facility] Last Admin: 07/15/18 10:48 Dose: 10,000 unit Heparin Sodium (Porcine) (Heparin) 5,000 units SC Q12 [facility] Last Admin: 07/16/18 10:09 Dose: 5,000 units Hydralazine HCl (Apresoline) 25 mg PO Q12 [facility] Last Admin: 07/16/18 10:08 Dose: 25 mg Ceftazidime 1 gm/ Sodium (Chloride) 50 mls @ 100 mls/hr IV MWF [facility]; Protocol Last Admin: 07/15/18 20:54 Dose: 100 mls/hr Insulin Human Regular (Novolin R) 0 unit SC ACHS [facility]; Protocol Last Admin: 07/16/18 17:51 Dose: Not Given Lactulose (Enulose) 20 gm PO Q6 [facility] Last Admin: 07/16/18 17:50 Dose: 20 gm Sevelamer Carbonate (Renvela) 2,400 mg PO TIDCC [facility] Last Admin: 07/16/18 17:50 Dose: 2,400 mg Sodium Phosphate (Fleet Enema) 135 ml OR ONCE PRN PRN Reason: Constipation Last Admin: 07/12/18 12:55 Dose: 135 ml Tramadol HCl (Ultram) 50 mg PO Q6 PRN PRN Reason: Pain, moderate (4-7) Last Admin: 07/16/18 08:29 Dose: 50 mg Vitamin B Complex/Vit C/Folic Acid (Nephro-Jessy) [address] [facility] Last Admin: 07/15/18 14:30 Dose: 1 tab - Labs Labs: 07/15/18 07:28 07/15/18 07:28 PT 12.5 SECONDS (9.7-12.2) H 07/09/18 21:53 INR 1.1 07/09/18 21:53 APTT 37.1 SECONDS (21-34) H 07/09/18 21:53 - Constitutional Appears: Non-toxic, Chronically Ill - Head Exam Head Exam: ATRAUMATIC, NORMAL INSPECTION, NORMOCEPHALIC - Eye Exam Eye Exam: EOMI, Normal appearance, PERRL Pupil Exam: NORMAL ACCOMODATION, PERRL - ENT Exam ENT Exam: Mucous Membranes Moist, Normal Exam - Neck Exam Neck Exam: Full ROM, Normal Inspection. absent: Lymphadenopathy - Respiratory Exam Respiratory Exam: Decreased Breath Sounds, Clear to Ausculation Bilateral, Prolonged Expiratory Phase - Cardiovascular Exam Cardiovascular Exam: REGULAR RHYTHM, +S1, +S2. absent: Murmur - GI/Abdominal Exam GI & Abdominal Exam: Soft, Normal Bowel Sounds. absent: Tenderness - Rectal Exam Rectal Exam: Deferred - Exam Exam: NORMAL INSPECTION - Extremities Exam Extremities Exam: Full ROM, Normal Capillary Refill, Normal Inspection. absent: Joint Swelling, Pedal Edema - Back Exam Back Exam: NORMAL INSPECTION - Neurological Exam Neurological Exam: Alert, Awake, CN II-XII Intact, Oriented x3. absent: Normal Gait - Psychiatric Exam Psychiatric exam: Normal Affect, Normal Mood - Skin Skin Exam: Dry, Intact, Normal Color, Warm Assessment and Plan (1) Lumbar discitis Status: Acute (2) Osteomyelitis of lumbar spine Status: Acute (3) Osteomyelitis of second toe of left foot Status: Acute (4) Spinal stenosis Status: Acute (5) Complication of arteriovenous dialysis fistula Status: Acute (6) ESRD (end stage renal disease) Status: Acute (7) Secondary hyperparathyroidism Status: Acute (8) Type 2 diabetes mellitus with diabetic nephropathy Status: Acute - Assessment and Plan (Free Text) Assessment: seen on rounds 'iv antibiotics not covered by [facility] need to switcht to Vanco/ Genta/ Cipro refuses surgery but wants to get better advised of risks May need TMA or BKA if infection spreads discitis likely the reult of metastatic infection and or access site infection 'poor prognosis ' discussed with Dr Trejo and Dr Cathie treadwell d/c'd
--- NOTE | 2018-07-16 18:18 | CP.PCM.DIS ---
Provider - Provider Date of Admission: 07/10/18 15:25 Attending physician: Fiona Brand MD Consults: 07/10/18 00:27 Infectious Disease Consult Routine Comment: LS spine diskitis Consulting Provider: Dominik Styles Consulting Physician: Dominik Styles Reason for Consult: LS spine diskitis 07/10/18 00:54 General Surgery Consult Routine Comment: L2/L3 diskitis Consulting Provider: Aman Parmar Consulting Physician: Aman Parmar Reason for Consult: L2/L3 Diskitis 07/10/18 03:02 Nursing Referral for Wound Care Routine Comment: Physician Instructions: Reason For Exam: Left 2nd toe wound. 07/10/18 07:00 Physician Consult Routine Comment: Consulting Provider: Omar Trejo Consulting Physician: Omar Trejo Reason for Consult: ESRD; Pt on HD tx 07/10/18 09:21 Podiatry Consult Routine Comment: Consulting Provider: Ben Doss Consulting Physician: Ben Doss Reason for Consult: FOOT INFECTION Time Spent in preparation of Discharge (in minutes): 30 Hospital Course - Lab Results Lab Results: Micro Results 07/10/18 01:50 Blood Blood Culture - Final NO GROWTH AFTER 5 DAYS 07/10/18 01:50 Blood Gram Stain - Final TEST NOT PERFORMED 07/10/18 01:50 Blood Blood Culture - Final NO GROWTH AFTER 5 DAYS 07/10/18 01:50 Blood Gram Stain - Final TEST NOT PERFORMED 07/11/18 12:02 Toe Gram Stain - Final 07/11/18 12:02 Toe Wound Culture - Final No growth. Most Recent Lab Values WBC 8.1 K/uL (4.8-10.8) 07/15/18 07:28 RBC 2.67 Mil/uL (3.80-5.20) L 07/15/18 07:28 Hgb 8.1 g/dL (11.0-16.0) L 07/15/18 07:28 Hct 23.6 % (34.0-47.0) L 07/15/18 07:28 MCV 88.5 fL (81.0-99.0) 07/15/18 07:28 MCH 30.5 pg (27.0-31.0) 07/15/18 07:28 MCHC 34.4 g/dL (33.0-37.0) 07/15/18 07:28 RDW 19.8 % (11.5-14.5) H 07/15/18 07:28 Plt Count 197 K/uL (130-400) 07/15/18 07:28 MPV 8.1 fL (7.2-11.7) 07/15/18 07:28 Neut % (Auto) 71.2 % (50.0-75.0) 07/09/18 21:21 Lymph % (Auto) 18.3 % (20.0-40.0) L 07/09/18 21:21 [place] % (Auto) 8.1 % (0.0-10.0) 07/09/18 21:21 Eos % (Auto) 1.5 % (0.0-4.0) 07/09/18 21:21 Baso % (Auto) 0.9 % (0.0-2.0) 07/09/18 21:21 Neut # (Auto) 5.6 K/uL (1.8-7.0) 07/09/18 21:21 Lymph # (Auto) 1.4 K/uL (1.0-4.3) 07/09/18 21:21 [place] # (Auto) 0.6 K/uL (0.0-0.8) 07/09/18 21:21 Eos # (Auto) 0.1 K/uL (0.0-0.7) 07/09/18 21:21 Baso # (Auto) 0.1 K/uL (0.0-0.2) 07/09/18 21:21 PT 12.5 SECONDS (9.7-12.2) H 07/09/18 21:53 INR 1.1 07/09/18 21:53 APTT 37.1 SECONDS (21-34) H 07/09/18 21:53 Sodium 133 mmol/L (132-148) 07/15/18 07:28 Potassium 4.0 mmol/L (3.6-5.2) 07/15/18 07:28 Chloride 92 mmol/L (98-107) L 07/15/18 07:28 Carbon Dioxide 31 mmol/L (22-30) H 07/15/18 07:28 Anion Gap 14 (10-20) 07/15/18 07:28 BUN 28 mg/dL (7-17) H 07/15/18 07:28 Creatinine 7.7 mg/dL (0.7-1.2) H* 07/15/18 07:28 Est GFR ( Amer) 6 07/15/18 07:28 Est GFR (Non-Af Amer) 5 07/15/18 07:28 POC Glucose (mg/dL) 148 mg/dL (65-110) H 07/16/18 16:16 Random Glucose 82 mg/dL (65-105) 07/15/18 07:28 Calcium 10.4 mg/dl (8.6-10.4) 07/15/18 07:28 % Saturation 24 (20-55) 07/13/18 13:47 Ferritin 1060.0 ng/mL 07/13/18 13:47 Total Bilirubin 0.5 mg/dL (0.2-1.3) 07/09/18 21:53 AST 27 U/L (14-36) 07/09/18 21:53 ALT 21 U/L (9-52) 07/09/18 21:53 Alkaline Phosphatase 269 U/L (38-126) H D 07/09/18 21:53 NT-Pro-B Natriuret Pep 3000 pg/mL (0-900) H 07/09/18 21:53 Total Protein 7.9 g/dL (6.3-8.3) 07/09/18 21:53 Albumin 4.0 g/dL (3.5-5.0) 07/09/18 21:53 Globulin 3.9 gm/dL (2.2-3.9) 07/09/18 21:53 Albumin/Globulin Ratio 1.0 (1.0-2.1) 07/09/18 21:53 Random Vancomycin 24.6 ug/mL 07/13/18 20:08 - Hospital Course Hospital Course: Pt was admitted for eval of back pain, although she states her back pain is chronic, given her ongoing infection it was felt evaluating for possible infection was important. Pt had an MRI of back which c/w discitis. PT was evaluated by spine surgeon. PT is reluctant to any surgery back or toes. Pt was evaluated by ID and abx were recommended. Cultures however were all negative as she has been on abx for some time. Pt was seen by nephro and podiatry as well. It is patient's desire to continue conservative management for infections, abx alone without any surgical procedures. Her risk of overwhelming infection, sepsis and other complications explained to her again, she expressed clear understanding of the risk she is taking but is firm on her decision. I spoke to Dr. Styles today who has placed orders for vacon and gent IV after dialyisis and po Cipro. Discharge Exam - Head Exam Head Exam: ATRAUMATIC, NORMAL INSPECTION - Eye Exam Eye Exam: Normal appearance - Respiratory Exam Respiratory Exam: Clear to PA & Lateral - Cardiovascular Exam Cardiovascular Exam: REGULAR RHYTHM, +S1. absent: JVD - GI/Abdominal Exam GI & Abdominal Exam: Normal Bowel Sounds (toes evaluated by podiatry, no much has changed. very poor prognosis.) Discharge Plan - Discharge Medications Prescriptions: Gentamicin 80 mg in 0.9% NS [Gentamicin 80mg/100ml NS] 80 mg IVPB MWF #18 bag Vancomycin/0.9 % Sod Chloride [Vanco 500 mg/100 ml-0.9% NaCl] 500 mg IV MWF #18 [email or web address] - Follow Up Plan Condition: GOOD Disposition: HOME/ ROUTINE Instructions: Osteomyelitis (DC) Additional Instructions: continue with HD, MWF Vancomycin 500 mg ivbp MWF x 6 weeks post HD and gentamycin 80 mg IVBP MWF post HD PER dR. Styles Cipro 500mg PO daily. mita Braadelia to arrange for Garcia , apply when getting oob per DR Temple;PT/OT as tolerated follow up with DR Smart, podiatry/ wound care daily as advised please do VANCO TROUGH LEVEL Q WEEKLY STARTING FRIDAY AND GENTAMYCIN LEVEL Q WEEKLY STARTING FRIDAY AND FAX RESULT TO dR. STYLES OFFICE FOR ADJUSTMENT OF MEDICATION pLEASE DO HEARING TEST 3/ WEEK -( PT ON GENTA MYCIN AND ONE OF THE SIDE EFFECT IS OTOTOXICITY) wound care orders to left foot 2nd toe Irrigate wound with hydrogen peroxide ,Aply xeroform and dry sterile dressing daily Referrals: Ben Doss DPM [[facility]] - Dominik Styles MD [Staff Provider] -
[2018-07-16 23:19] VITALS: BP 149/78; PULSE 72; O2SAT 95
== END 2018-07-16 23:20 | DRG 539 ==
LOC: C.ER 20:20 → C.3T 07-10 00:52 → OBSVTOIN 07-10 15:25
PROVIDERS: ADMIT Internal Medicine; ATTEND Internal Medicine
PROC: 5A1D70Z Performance of Urinary Filtration, Intermittent, Less than 6 Hours Per Day (ICD-10-PCS; principal; 2018-07-10)
PROC: 5A1D70Z Performance of Urinary Filtration, Intermittent, Less than 6 Hours Per Day (ICD-10-PCS; 2018-07-13)
PROC: 5A1D70Z Performance of Urinary Filtration, Intermittent, Less than 6 Hours Per Day (ICD-10-PCS; 2018-07-15)
DX: M46.26 Osteomyelitis of vertebra, lumbar region (principal); N18.6 End stage renal disease; I12.0 Hypertensive chronic kidney disease with stage 5 chronic kidney disease or end stage renal disease; E11.52 Type 2 diabetes mellitus with diabetic peripheral angiopathy with gangrene; N25.81 Secondary hyperparathyroidism of renal origin; T82.9XXA Unspecified complication of cardiac and vascular prosthetic device, implant and graft, initial encounter; M46.46 Discitis, unspecified, lumbar region; E11.69 Type 2 diabetes mellitus with other specified complication; E11.22 Type 2 diabetes mellitus with diabetic chronic kidney disease; M48.00 Spinal stenosis, site unspecified; M54.5 Low back pain; E11.621 Type 2 diabetes mellitus with foot ulcer; E11.21 Type 2 diabetes mellitus with diabetic nephropathy; D63.1 Anemia in chronic kidney disease; G89.29 Other chronic pain; K59.00 Constipation, unspecified; L97.529 Non-pressure chronic ulcer of other part of left foot with unspecified severity; M48.061 Spinal stenosis, lumbar region without neurogenic claudication; Y83.2 Surgical operation with anastomosis, bypass or graft as the cause of abnormal reaction of the patient, or of later complication, without mention of misadventure at the time of the procedure; Z99.2 Dependence on renal dialysis